=== PATIENT | female | born 1950 | race Caucasian/White ===

== ENCOUNTER 2018-06-21 05:33 | Observation (INO) ==
[2018-06-21 06:00] LABS: Basophils # 0.1 K/mm3 (0-0.2); Basophils % 0.6 % (0.1-2.0); Eosinophils # 0.7 K/mm3 (0.0-0.4); Eosinophils % 7.6 % (0.1-12.0); Hematocrit 43.4 % (37.0-47.0); Hemoglobin 13.8 g/dL (12.2-16.2); Lymphocytes # 3.1 K/mm3 (0.7-4.5); Mean Corpuscular HGB Conc 31.9 g/dL (31.8-35.4); Mean Corpuscular Hemoglobin 30.2 pg (27.0-31.2); Mean Corpuscular Volume 94.8 fl (81-99); Mean Platelet Volume 7.8 fl (7.4-10.4); Monocytes # 0.7 K/mm3 (0.1-1.0); Monocytes % 8.7 % (1.7-9.3); Neutrophils # 3.9 K/mm3 (1.8-7.8); Neutrophils % 46.1 % (37.0-80.0); Platelet Count 308 K/mm3 (142-424); Red Blood Count 4.58 M/mm3 (4.20-5.40); Red Cell Distribution Width 13.8 % (11.5-17.5); White Blood Count 8.5 K/mm3 (4.8-10.8)
--- NOTE | 2018-06-21 06:03 | Emergency Department Note ---
ED Disposition Clinical Impression: Tobacco use Community acquired pneumonia Qualifiers: Laterality: unspecified laterality Qualified Code(s): J18.9 - Pneumonia, unspec ified organism HTN (hypertension) Qualifiers: Hypertension type: essential hypertension Qualified Code(s): I10 - Essential (primary) hypertension Disposition: Admitted as Observation Condition on Discharge: Good Referrals: Crystal Bernal MD [Primary Care Provider] - - Critical Care Critical Care Time: No Attestation: On 06/21/18, the high probability of a clinically significant, sudden or life threatening deterioration of the following system(s) required my full and direct attention, intervention and personal management. The time I documented below is in addition to time spent performing reported procedures but includes the following listed in this critical care notation. Medical Decision Making - Medical Records Medical records reviewed: Yes: I reviewed the patient's medical records. - [place] Inquiry Pt receiving controlled substance: No Vital Signs: 06/21/18 05:33 06/21/18 05:42 06/21/18 06:10 Temperature 98.7 F Temperature Source Oral Pulse Rate [Right Radial] 126 H Respiratory Rate 30 H Blood Pressure [Right Arm] 204/132 192/120 Blood Pressure Mean [Right Arm] 156 144 Blood Pressure Source [Right Arm] Manual Cuff/ Auscultation Blood Pressure Position [Right Arm] Sitting 02 Sat by Pulse Oximetry 89 L 96 Oxygen Delivery Method Room Air Oxygen Flow Rate (LPM) 2 - Lab Data Lab results reviewed: Yes: I reviewed the patient's lab results. Lab Results 06/21/18 05:35: WBC 8.5, RBC 4.58, Hgb 13.8, Hct 43.4, MCV 94.8, MCH 30.2, MCHC 31.9, RDW 13.8, Plt Count 308, MPV 7.8, Neut % (Auto) 46.1, Lymph % (Auto) 37.0, [place] % (Auto) 8.7, Eos % (Auto) 7.6, Baso % (Auto) 0.6, Neut # (Auto) 3.9, Lymph # (Auto) 3.1, [place] # (Auto) 0.7, Eos # (Auto) 0.7 H, Baso # (Auto) 0.1 06/21/18 05:35: Sodium 144, Potassium 3.8, Chloride 106, Carbon Dioxide 26, Ani on Gap 15.8 H, BUN 15, Creatinine 1.28 H, Estimated Creat Clear 50, Estimated GFR 42 L, Est GFR ( Amer) 50 L, Glucose 155 H, Calcium 8.2 L, Total Bilirubin 0.2, AST 21, ALT 29, Alkaline Phosphatase 106, Total Creatine Kinase 77, CK-MB (CK-2) 1.1, CK-MB (CK-2) Rel Index 1.4, Troponin I < 0.02, Total Protein 8.4 H, Albumin 4.0, Globulin 4.4 H, Albumin/Globulin Ratio 0.9 L Result diagrams: 06/21/18 05:35 06/21/18 05:35 Orders (Tests/Meds): ED MEDICATIONS Generic Name Dose Route Start Last Admin Trade Name Freq PRN Reason Stop Dose Admin Ceftriaxone Sodium 1 gm/ 50 mls @ 100 mls/hr 06/21/18 06:30 06/21/18 06:30 Sodium Chloride IV 07/05/18 06:29 100 mls/hr Q24H DARLENE Administration Protocol Azithromycin 500 mg/ Sodium 250 mls @ 250 mls/hr 06/21/18 06:30 Chloride IV 07/05/18 06:29 Q24H DARLENE Protocol Sodium Chloride 3 ml 06/21/18 05:41 Sodium Chloride 3% 15ml Neb 07/21/18 05:40 ONCE PRN INDUCE SPUTUM COLLECTION Discontinued Medications Generic Name Dose Route Start Last Admin Trade Name Freizzy PRN Reason Stop Dose Admin Albuterol/Ipratropium 3 ml 06/21/18 05:39 06/21/18 05:41 Duoneb 3ml Neb 06/21/18 05:40 3 ml ONCE ONE Administration Clonidine HCl 0.1 mg 06/21/18 06:23 06/21/18 06:30 Clonidine 0.1mg Tablet PO 06/21/18 06:24 0.1 mg ONCE ONE Administration Methylprednisolone Sodium Succinate 125 mg 06/21/18 05:39 06/21/18 05:41 Solu-Medrol 125mg/2ml Vial IV 06/21/18 05:40 125 mg ONCE ONE Administration ORDERS Category Date Time Status BNP [B-Type Natriuretic Peptide] Stat Lab 06/21/18 06:02 Ordered Lactic Acid Stat Lab 06/21/18 05:35 Received Blood Culture Stat Micro 06/21/18 05:35 Ordered Sputum Culture & Gram Stain Stat Micro 06/21/18 05:45 Ordered - Radiology Data #1 Image(s): Chest Image Reviewed: Yes I reviewed the patient's radiology image Preliminary Findings: Abnormal (inflitrates ) - ECG Data Tracing #1 Arrhythmias present: sinus tach Ischemic changes: non-specific ST-T wave changes - Physician Consults Physician Consulted: luke Reason -: Admission Resp/SOB HPI - General Chief Complaint: Shortness of Breath/Dyspnea Stated Complaint: shortness of breath Time Seen by Provider: 06/21/18 05:45 Mode of Arrival: Family Vehicle Source of Information: Patient, Medical Record Limitations: No Limitations Description of Symptoms (Recalled from ER Triage Doc. by RN): shortness of breat h that began 1 week ago. pt c/o productive cough and denies fever. - History of Present Illness progressive sob with prod cough over the last week with hx of tob use- no chest pain but has not used bp meds for awhile MD Complaint: shortness of breath, cough Onset (ago): day(s) Severity: moderate Known history of: COPD Associated symptoms: denies other symptoms Treatment prior to arrival: none - Related Data Home oxygen amount: none Home Medications Medication Instructions Recorded Confirmed No Known Home Medications 06/21/18 06/21/18 Allergies Allergy/AdvReac Type Severity Reaction Status Date / Time No Known Allergies Allergy Verified 06/21/18 05:38 [facility] History I have reviewed the patient's past medical history: Yes Medical History: Reports:: Cancer Denies:: Diabetes Mellitus Type 1, Diabetes Mellitus Type 2, MRSA Amputation: No Fractures: Yes (hx ankle fracture with surgery) - Social History Smoking Status: Current every day smoker Alcohol Intake: never - Psychiatric History Expresses thoughts of harming self/others: None Suicide Plan Description: No Plan ROS Obtained: Yes All systems reviewed & no additional complaints - Constitutional Constitutional: Denies fever(s) - Eyes Eyes: Denies change in vision - ENT Ears, Nose, Mouth, and Throat: Denies sore throat - Cardiovascular Cardiovascular: Denies chest pain at rest - Respiratory Respiratory: Yes cough, Yes dyspnea, No coughing up blood - Gastrointestinal Gastrointestingal: Denies: abdominal pain - Genitourinary Male Genitourinary: Reports hematuria Female Genitourinary: Denies hematuria - Musculoskeletal Musculoskeletal: Denies joint pain, Denies joint swelling - Integumentary/Breasts Skin/Breast: Denies rash - Neurologic Neurologic: Denies headache(s), Denies seizure-like activity Physical Exam - General General appearance: alert, in no apparent distress - Head Head exam: normocephalic - Eye Eye exam: Present: PERRL, EOMI - ENT ENT exam: Present: mucous membranes dry - Neck Neck exam: Present: trachea midline - Respiratory Respiratory exam: Present: wheezes, other (dec bs bilat ). Absent: respiratory distress - Cardiovascular Cardiovascular exam: Present: regular rate, systolic murmur, +S4 - Abdominal Exam Abdominal exam: Present: soft - Extremities Exam Extremities exam: Present: pedal edema. Absent: calf tenderness - Neurological Exam Neurological exam: Present: alert, oriented X3, CN II-XII intact - Psychiatric Psychiatric exam: Present: normal affect - Skin Skin exam: Absent: rash
[2018-06-21 06:23] LABS: Alanine Aminotransferase 29 U/L (12-78); Albumin/Globulin Ratio 0.9 (1.1-1.8); Alkaline Phosphatase 106 U/L (46-116); Anion Gap 15.8 mEq/L (5-15); Aspartate Amino Transferase 21 U/L (15-37); Bilirubin,Total 0.2 mg/dL (0.2-1.0); Blood Urea Nitrogen 15 mg/dL (7-18); Calcium 8.2 mg/dL (8.5-10.1); Carbon Dioxide 26 mmol/L (21.0-32.0); Chloride 106 mmol/L (98-107); Creatine Kinase 77 U/L (26-192); Globulin 4.4 gm/dl (1.3-3.2); Glucose 155 mg/dL (74-106); Potassium 3.8 mmoL/L (3.5-5.1); Sodium 144 mmol/L (136-145); Total Protein,Serum 8.4 gm/dL (6.4-8.2)
--- NOTE | 2018-06-21 07:48 | Pharmacy Consult Notes ---
[facility] Pharmacy VTE Monitoring - Patient Demographics Admission date: 06/21/18 Report Date: 06/21/18 Time: 07:48 Allergies/Adverse Reactions: Patient Allergies No Known Allergies Allergy (Verified 06/21/18 05:38) Height: 1.57 m Weight: 72.575 kg Patient Problems: Current Active Problems Community acquired pneumonia (Acute) HTN (hypertension) (Acute) Tobacco use (Acute) - VTE Risk Labs: VTE Related Lab Results Hgb 13.8 g/dL (12.2-16.2) 06/21/18 05:35 Hct 43.4 % (37.0-47.0) 06/21/18 05:35 Plt Count 308 K/mm3 (142-424) 06/21/18 05:35 BUN 15 mg/dL (7-18) 06/21/18 05:35 Creatinine 1.28 mg/dL (0.55-1.02) H 06/21/18 05:35 Estimated Creat Clear 50 mL/min (0-300) 06/21/18 05:35 - Prophylaxis VTE Prophylaxis Ordered?: Yes Types of VTE Prophylaxis: TEDS Knee High Location of Applied Device: Bilateral Lower Extremeties - VTE Diagnosis Confirmed Treatment or plan recommended: Continue Current Treatment
--- NOTE | 2018-06-21 08:21 | History & Physical Report ---
*Admission Date: 06/21/18 <Pamella Lake 06/21/18 08:24> *Chief complaint: SOA <Ward Lake06/21/18 08:24> *History of present illness: Ms. Solares is a 67-year-old female patient of Dr. Brooke Dukes of [place]. She has a history of hypertension, hyperlipidemia, iron deficiency anemia, and left breast cancer. She is a smoker. She states approximately 1-1/2 weeks ago she began feeling poorly. She thought she had a cold and then thought she might have the flu. Approximately 3 AM last night she was unable to breathe and drove herself to the emergency room. She was found to have pneumonia and was admitted. <Pamella Lake 06/21/18 08:24> [facility] History Medical History: Reports:: Cancer (breast), Hyperlipidemia, Hypertension Denies:: Diabetes Mellitus Type 1, Diabetes Mellitus Type 2, MRSA <Ward Lake06/21/18 08:24> Other Medical History: Reports: Anemia <Pamella Lake 06/21/18 08:24> Laterality Cases: Left: Lumpectomy <Pamella Lake 06/21/18 08:24> Amputation: No <Pamella Lake 06/21/18 08:24> Fractures: Yes (hx ankle fracture with surgery) <Pamella Lake 06/21/18 08:24> - *Social History Smoking Status: Current every day smoker <Pamella Lake 06/21/18 08:24> Alcohol Intake: never <Pamella Lake 06/21/18 08:24> - Psychiatric History Expresses thoughts of harming self/others: None <Pamella Lake 06/21/18 08:24> Suicide Plan Description: No Plan <Pamella Lake 06/21/18 08:24> *Family Hx:: Cancer (breast), Hypertension <Pamella Lake 06/21/18 08:24> Review of Systems - Constitutional Reports chills, Reports fatigue, Reports weakness, Denies headache(s) <Pamella Lake 06/21/18 08:24> - Eyes Denies blurry vision, Denies double vision <Pamella Lake 06/21/18 08:24> - ENT Reports nasal congestion, Denies sore throat <Pamella Lake 06/21/18 08:24> - *Cardiovascular Denies chest pain, Denies irregular heart rhythm <Pamella Lake 06/21/18 08:24> - *Respiratory Reports chest congestion, Reports cough, Reports shortness of breath <Pamella Lake 06/21/18 08:24> - *Gastrointestinal Denies abdominal pain, Denies loose stools, Denies nausea, Denies vomiting <Pamella Lake 06/21/18 08:24> - *Genitourinary Denies difficulty urinating, Denies painful urination [facility] 06/21/18 08:24> - *Musculoskeletal Denies joint pain <Pamella Lake 06/21/18 08:24> - *Neurologic Denies headache(s), Denies seizure-like activity, Denies dizziness, Denies weakness <Pamella Lake 06/21/18 08:24> Meds Home Medications Medication Instructions Recorded Confirmed Type Atorvastatin Calcium [Atorvastatin 20 mg PO DAILY 06/21/18 06/21/18 History 20mg Tab] Benazepril/Hydrochlorothiazide 1 each PO DAILY 06/21/18 06/21/18 History [Benazepril-Hctz 20-12.5 mg Tab] Ferrous Sulfate [Iron] 325 mg PO DAILY 06/21/18 06/21/18 History Naproxen 500 mg PO BID 06/21/18 06/21/18 History <Roger Guthrie - 06/21/18 09:46> Allergies Allergy/AdvReac Type Severity Reaction Status Date / Time No Known Allergies Allergy Verified 06/21/18 05:38 <Roger Guthrie - 06/21/18 09:46> Exam Vital signs and Labs for Last 24 Hours: Temp Pulse Resp BP Pulse Ox 98.1 F 109 H 20 150/97 92 L 06/21/18 08:03 06/21/18 08:03 06/21/18 08:03 06/21/18 08:03 06/21/18 08:03 Laboratory Results - last 24 hr 06/21/18 05:35: WBC 8.5, RBC 4.58, Hgb 13.8, Hct 43.4, MCV 94.8, MCH 30.2, MCHC 31.9, RDW 13.8, Plt Count 308, MPV 7.8, Neut % (Auto) 46.1, Lymph % (Auto) 37.0, [place] % (Auto) 8.7, Eos % (Auto) 7.6, Baso % (Auto) 0.6, Neut # (Auto) 3.9, Lymph # (Auto) 3.1, [place] # (Auto) 0.7, Eos # (Auto) 0.7 H, Baso # (Auto) 0.1 06/21/18 05:35: Sodium 144, Potassium 3.8, Chloride 106, Carbon Dioxide 26, Anion Gap 15.8 H, BUN 15, Creatinine 1.28 H, Estimated Creat Clear 50, Estimated GFR 42 L, Est GFR ( Amer) 50 L, Glucose 155 H, Calcium 8.2 L, Total Bilirubin 0.2, AST 21, ALT 29, Alkaline Phosphatase 106, Total Creatine Kinase 77, CK-MB (CK-2) 1.1, CK-MB (CK-2) Rel Index 1.4, Troponin I < 0.02, Total Protein 8.4 H, Albumin 4.0, Globulin 4.4 H, Albumin/Globulin Ratio 0.9 L 06/21/18 05:35: Lactate 3.2 H 06/21/18 05:35: B-Natriuretic Peptide 334 H <Roger Guthrie - 06/21/18 09:46> Temp Pulse Resp BP Pulse Ox 98.1 F 109 H 20 150/97 92 L 06/21/18 08:03 06/21/18 08:03 06/21/18 08:03 06/21/18 08:03 06/21/18 08:03 Laboratory Results - last 24 hr 06/21/18 05:35: WBC 8.5, RBC 4.58, Hgb 13.8, Hct 43.4, MCV 94.8, MCH 30.2, MCHC 31.9, RDW 13.8, Plt Count 308, MPV 7.8, Neut % (Auto) 46.1, Lymph % (Auto) 37.0, [place] % (Auto) 8.7, Eos % (Auto) 7.6, Baso % (Auto) 0.6, Neut # (Auto) 3.9, Lymph # (Auto) 3.1, [place] # (Auto) 0.7, Eos # (Auto) 0.7 H, Baso # (Auto) 0.1 06/21/18 05:35: Sodium 144, Potassium 3.8, Chloride 106, Carbon Dioxide 26, Anion Gap 15.8 H, BUN 15, Creatinine 1.28 H, Estimated Creat Clear 50, Estimated GFR 42 L, Est GFR ( Amer) 50 L, Glucose 155 H, Calcium 8.2 L, Total Bilirubin 0.2, AST 21, ALT 29, Alkaline Phosphatase 106, Total Creatine Kinase 77, CK-MB (CK-2) 1.1, CK-MB (CK-2) Rel Index 1.4, Troponin I < 0.02, Total Protein 8.4 H, Albumin 4.0, Globulin 4.4 H, Albumin/Globulin Ratio 0.9 L 06/21/18 05:35: Lactate 3.2 H 06/21/18 05:35: B-Natriuretic Peptide 334 H <Pamella Lake 06/21/18 08:24> I & O for Last 24 hours: Intake & Output 06/18/18 06/19/18 06/20/18 06/21/18 11:59 11:59 11:59 11:59 Weight 175 lb 2 oz <Roger Guthrie - 06/21/18 09:46> Intake & Output 06/18/18 06/19/18 06/20/18 06/21/18 11:59 11:59 11:59 11:59 Weight 175 lb 2 oz <Pamella Lake 06/21/18 08:24> Microbiology Reports for the Last 24 Hours: Microbiology 06/21/18 05:45 Sputum - Expectorated Sputum Gram Stain - Final <Roger Guthrie 06/21/18 09:46> Microbiology 06/21/18 05:45 Sputum - Expectorated Sputum Gram Stain - Final <Pamella Lake 06/21/18 08:24> - Constitutional no acute distress <Pamella Lake 06/21/18 08:24> - *Routine HEENT Exam Head: Present: normocephalic, atraumatic <Pamella Lake 06/21/18 08:24> Eye: Present: EOMI, PERRL <Pamella Lake 06/21/18 08:24> ENT: Present: mucous membranes dry <Pamella Lake 06/21/18 08:24> - *Routine Neck Exam Present: supple, full ROM <Pamella Lake 06/21/18 08:24> - *Routine Respiratory Exam Present: rales (bibasilar). Absent: wheezes <Pamella Lake 06/21/18 08:24> - *Routine Cardiovascular Exam Present: RRR <Ward Lakea 06/21/18 08:24> - *Routine Abdominal Exam Present: soft, normoactive bowel sounds. Absent: tenderness <Pamella Lake 06/21/18 08:24> - *Routine Extremities Exam Absent: edema <Ward Lakea 06/21/18 08:24> - *Routine Skin Exam Present: intact [facility]24> - *Routine Neurological Exam Present: alert, oriented X3, CN II-XII intact <Ward Lakea 06/21/18 08:24> H&P: Result - Impressions CXR - Possible infiltrates or atelectasis in the left mid to upper lung zone and right lower lobe <Pamella Lake 06/21/18 08:24> Assessment and Plan (1) Community acquired pneumonia Current visit: Yes Status: Acute Qualifiers: Laterality: unspecified laterality Qualified Code(s): J18.9 - Pneumonia, unspecified organism Category: Medical Code(s): J18.9 - Pneumonia, unspecified organism (2) HTN (hypertension) Current visit: Yes Status: Chronic Qualifiers: Hypertension type: essential hypertension Qualified Code(s): I10 - Essential (primary) hypertension Category: Medical Code(s): I10 - Essential (primary) hypertension (3) Tobacco use Current visit: Yes Status: Chronic Category: Social Hx Code(s): Z72.0 - Tobacco use <Pamella Lake 06/21/18 08:18> (1) Community acquired pneumonia Current visit: Yes Status: Acute Qualifiers: Laterality: unspecified laterality Qualified Code(s): J18.9 - Pneumonia, unspecified organism Category: Medical Code(s): J18.9 - Pneumonia, unspecified organism (2) HTN (hypertension) Current visit: Yes Status: Chronic Qualifiers: Hypertension type: essential hypertension Qualified Code(s): I10 - Essential (primary) hypertension Category: Medical Code(s): I10 - Essential (primary) hypertension (3) Tobacco use Current visit: Yes Status: Chronic Category: Social Hx Code(s): Z72.0 - Tobacco use <JerriRoger villa Jm - 06/21/18 09:46> - Assessment and plan all Dx Assessment and Plan for all problems:: Patient seen and examined. Further to above history is that she admits to nonc ompliance with her home medications. SHe does not even remember what medications she is supposed to be taking for her BP and HLP. SHe is feeling better since arrival to the floor. O2 sats are stable. BP is improved. She still has a productive cough. No chest pain. When asked about her smoking status, she states she quit smoking this morning. Agrees to using a Nicotine patch. Will also resume her home medications once these are confirmed by pharmacy. <Roger Guthrie - 06/21/18 09:46> Patient has been started on Zithromax, Rocephin, nebs, steroids, oxygen, and IV fluids. Will continue current treatment and await sputum culture results. <Pamella Lake - 06/21/18 08:24>
[2018-06-22 06:43] LABS: Basophils % 0.3 % (0.1-2.0); Eosinophils % 0.1 % (0.1-12.0); Hematocrit 38.4 % (37.0-47.0); Hemoglobin 11.9 g/dL (12.2-16.2); Lymphocytes # 1.4 K/mm3 (0.7-4.5); Lymphocytes % 18.7 K/mm3 (10-50); Mean Corpuscular HGB Conc 31.1 g/dL (31.8-35.4); Mean Corpuscular Hemoglobin 29.5 pg (27.0-31.2); Mean Corpuscular Volume 95.1 fl (81-99); Mean Platelet Volume 7.8 fl (7.4-10.4); Monocytes # 0.4 K/mm3 (0.1-1.0); Monocytes % 4.8 % (1.7-9.3); Neutrophils # 5.6 K/mm3 (1.8-7.8); Neutrophils % 76.1 % (37.0-80.0); Platelet Count 287 K/mm3 (142-424); Red Blood Count 4.04 M/mm3 (4.20-5.40); Red Cell Distribution Width 13.9 % (11.5-17.5); White Blood Count 7.3 K/mm3 (4.8-10.8)
[2018-06-22 07:04] LABS: Anion Gap 12.4 mEq/L (5-15); Calcium 8.7 mg/dL (8.5-10.1); Chol/HDL Ratio 4.1 (1-3.5); Potassium 4.4 mmoL/L (3.5-5.1)
--- NOTE | 2018-06-22 08:44 | Progress Note ---
<Maryann Stephens - Last Filed: 06/22/18 08:40> Internal Medicine - PN: Subj *Date: 06/22/18 *Time: 08:41 Interval history: Pt is sitting up in bed watching TV, still with some SOB at rest which pt reports is improved from yesterday. She notes that she is eating well and amb ulating to BR without difficulty. She denies any chest pain, describes her cough as more productive. Exam Vital signs and Labs for Last 24 Hours: Temp Pulse Resp BP Pulse Ox 97.9 F 103 H 20 177/89 85 L 06/22/18 04:00 06/22/18 06:25 06/22/18 04:00 06/22/18 04:00 06/22/18 06:25 Laboratory Results - last 24 hr 06/21/18 09:50: Troponin I 0.04 06/21/18 09:50: Lactate 2.9 H 06/21/18 12:28: Troponin I 0.05 06/21/18 12:28: Lactate 1.8 06/22/18 06:15: WBC 7.3, RBC 4.04 L, Hgb 11.9 L, Hct 38.4, MCV 95.1, MCH 29.5, MCHC 31.1 L, RDW 13.9, Plt Count 287, MPV 7.8, Neut % (Auto) 76.1, Lymph % (Auto) 18.7, [place] % (Auto) 4.8, Eos % (Auto) 0.1, Baso % (Auto) 0.3, Neut # (Auto) 5.6, Lymph # (Auto) 1.4, [place] # (Auto) 0.4, Eos # (Auto) 0.0, Baso # (Auto) 0.0 06/22/18 06:15: Sodium 144, Potassium 4.4, Chloride 109 H, Carbon Dioxide 27, Anion Gap 12.4, BUN 15, Creatinine 1.14 H, Estimated Creat Clear 62, Estimated GFR 48 L, Est GFR ( Amer) 58 L, Glucose 136 H, Calcium 8.7, Magnesium 1.6, Triglycerides 84, Cholesterol 203 H, LDL Cholesterol 136 H, VLDL Cholesterol 17, HDL Cholesterol 50, Cholesterol/HDL Ratio 4.1 H I & O for Last 24 hours: Intake & Output 09/01/0106/20/18 06/21/18 06/22/18 11:59 11:59 11:59 11:59 Intake Total 3603 / 3603 Balance 3603 / 3603 Weight 175 lb 2 oz 177 lb 4 oz Microbiology Reports for the Last 24 Hours: Microbiology 06/21/18 05:45 Sputum - Expectorated Sputum Gram Stain - Final - Constitutional no acute distress - *Routine Respiratory Exam Comments: mildly tachypneic at rest, good air movement with expiratory wheezes throughout, bibasilar rales more prominent on left - *Routine Cardiovascular Exam Present: RRR - *Routine Abdominal Exam Present: soft, normoactive bowel sounds. Absent: tenderness, distended, organomegaly, mass - *Routine Extremities Exam Present: full ROM, pulses intact. Absent: edema, calf tenderness - *Routine Neurological Exam Present: alert, oriented X3, normal speech. Absent: facial asymmetry Assessment and Plan (1) Community acquired pneumonia Current visit: Yes Status: Acute Qualifiers: Laterality: unspecified laterality Qualified Code(s): J18.9 - Pneumonia, unspecified organism Category: Medical Code(s): J18.9 - Pneumonia, unspecified organism (2) HTN (hypertension) Current visit: Yes Status: Chronic Qualifiers: Hypertension type: essential hypertension Qualified Code(s): I10 - Essential (primary) hypertension Category: Medical Code(s): I10 - Essential (primary) hypertension (3) Tobacco use Current visit: Yes Status: Chronic Category: Social Hx Code(s): Z72.0 - Tobacco use - Assessment and plan all Dx Assessment and Plan for all problems:: Pt somewhat improved. Will continue current care. Further per Dr. Guthrie. <Roger Guthrie - Last Filed: 06/22/18 13:44> Exam Vital signs and Labs for Last 24 Hours: Temp Pulse Resp BP Pulse Ox 98.3 F 108 H 20 166/93 97 06/22/18 12:00 06/22/18 12:00 06/22/18 12:00 06/22/18 12:00 06/22/18 12:00 Laboratory Results - last 24 hr 06/22/18 06:15: WBC 7.3, RBC 4.04 L, Hgb 11.9 L, Hct 38.4, MCV 95.1, MCH 29.5, MCHC 31.1 L, RDW 13.9, Plt Count 287, MPV 7.8, Neut % (Auto) 76.1, Lymph % (Auto) 18.7, [place] % (Auto) 4.8, Eos % (Auto) 0.1, Baso % (Auto) 0.3, Neut # (Auto) 5.6, Lymph # (Auto) 1.4, [place] # (Auto) 0.4, Eos # (Auto) 0.0, Baso # (Auto) 0.0 06/22/18 06:15: Sodium 144, Potassium 4.4, Chloride 109 H, Carbon Dioxide 27, Anion Gap 12.4, BUN 15, Creatinine 1.14 H, Estimated Creat Clear 62, Estimated GFR 48 L, Est GFR ( Amer) 58 L, Glucose 136 H, Calcium 8.7, Magnesium 1.6, Triglycerides 84, Cholesterol 203 H, LDL Cholesterol 136 H, VLDL Cholesterol 17, HDL Cholesterol 50, Cholesterol/HDL Ratio 4.1 H I & O for Last 24 hours: Intake & Output 06/20/18 06/21/18 06/22/18 06/23/18 11:59 11:59 11:59 11:59 Intake Total 3963 / 3963 Balance 3963 / 3963 Weight 175 lb 2 oz 177 lb 4 oz Microbiology Reports for the Last 24 Hours: Microbiology 06/21/18 05:45 Sputum - Expectorated Sputum Gram Stain - Final 06/21/18 05:45 Sputum - Expectorated Sputum Sputum Culture - Preliminary Assessment and Plan (1) Community acquired pneumonia Current visit: Yes Status: Acute Qualifiers: Laterality: unspecified laterality Qualified Code(s): J18.9 - Pneumonia, unspecified organism Category: Medical Code(s): J18.9 - Pneumonia, unspecified organism (2) HTN (hypertension) Current visit: Yes Status: Chronic Qualifiers: Hypertension type: essential hypertension Qualified Code(s): I10 - Essential (primary) hypertension Category: Medical Code(s): I10 - Essential (primary) hypertension (3) Tobacco use Current visit: Yes Status: Chronic Category: Social Hx Code(s): Z72.0 - Tobacco use - Assessment and plan all Dx Assessment and Plan for all problems:: When I entered room this AM she had just returned from and was fairly dyspneic. Cough is still productive. Has been able to wean O2 some. On exam, she has less wheezing. Will continue current treatment plan and repeat CXR today. Encouraged increased activity in room today.
--- NOTE | 2018-06-23 08:31 | Progress Note ---
<Pamella Lake - Last Filed: 06/23/18 08:28> Internal Medicine - PN: Subj *Date: 06/23/18 *Time: 08:28 Interval history: Patient states she was doing much better yesterday and was up walking around her room. She states she went to take a shower and did have her oxygen on the entire time, but after being in the shower, became short of breath. She states the shortness of breath has continued and she has been wheezing. She has had numerous breathing treatments with some relief. Exam Vital signs and Labs for Last 24 Hours: Temp Pulse Resp BP Pulse Ox 98.1 F 107 H 20 155/82 95 06/23/18 08:00 06/23/18 08:00 06/23/18 08:00 06/23/18 08:00 06/23/18 08:00 I & O for Last 24 hours: Intake & Output 06/20/18 06/21/18 06/22/18 06/23/18 11:59 11:59 11:59 11:59 Intake Total 3963 / 3963 3244 / 3244 Balance 3963 / 3963 3244 / 3244 Weight 175 lb 2 oz 177 lb 4 oz 178 lb 1 oz Microbiology Reports for the Last 24 Hours: Microbiology 06/21/18 05:35 Blood Blood Culture - Preliminary NO GROWTH AFTER 48 HOURS 06/21/18 05:35 Blood Blood Culture - Preliminary NO GROWTH AFTER 48 HOURS 06/21/18 05:45 Sputum - Expectorated Sputum Gram Stain - Final 06/21/18 05:45 Sputum - Expectorated Sputum Sputum Culture - Preliminary - Constitutional no acute distress - *Routine Respiratory Exam Present: rales (bibasilar), wheezes - *Routine Cardiovascular Exam Present: RRR - *Routine Abdominal Exam Present: soft, normoactive bowel sounds. Absent: tenderness - *Routine Extremities Exam Absent: edema Assessment and Plan (1) Community acquired pneumonia Current visit: Yes Status: Acute Qualifiers: Laterality: unspecified laterality Qualified Code(s): J18.9 - Pneumonia, unspecified organism Category: Medical Code(s): J18.9 - Pneumonia, unspecified organism (2) HTN (hypertension) Current visit: Yes Status: Chronic Qualifiers: Hypertension type: essential hypertension Qualified Code(s): I10 - Essential (primary) hypertension Category: Medical Code(s): I10 - Essential (primary) hypertension (3) Tobacco use Current visit: Yes Status: Chronic Category: Social Hx Code(s): Z72.0 - Tobacco use - Assessment and plan all Dx Assessment and Plan for all problems:: We will stop patient's IV fluids and give a dose of Lasix. We will get a BNP. Will continue antibiotics for her pneumonia. <Jerri,Roger Oneal - Last Filed: 06/23/18 08:55> Exam Vital signs and Labs for Last 24 Hours: Temp Pulse Resp BP Pulse Ox 98.1 F 107 H 20 155/82 95 06/23/18 08:00 06/23/18 08:00 06/23/18 08:00 06/23/18 08:00 06/23/18 08:00 I & O for Last 24 hours: Intake & Output 06/20/18 06/21/18 06/22/18 06/23/18 11:59 11:59 11:59 11:59 Intake Total 3963 / 3963 3244 / 3244 Balance 3963 / 3963 3244 / 3244 Weight 175 lb 2 oz 177 lb 4 oz 178 lb 1 oz Microbiology Reports for the Last 24 Hours: Microbiology 06/21/18 05:45 Sputum - Expectorated Sputum Gram Stain - Final 06/21/18 05:45 Sputum - Expectorated Sputum Sputum Culture - Final Normal Respiratory Leanne 06/21/18 05:35 Blood Blood Culture - Preliminary NO GROWTH AFTER 48 HOURS 06/21/18 05:35 Blood Blood Culture - Preliminary NO GROWTH AFTER 48 HOURS Assessment and Plan (1) Community acquired pneumonia Current visit: Yes Status: Acute Qualifiers: Laterality: unspecified laterality Qualified Code(s): J18.9 - Pneumonia, unspecified organism Category: Medical Code(s): J18.9 - Pneumonia, unspecified organism (2) HTN (hypertension) Current visit: Yes Status: Chronic Qualifiers: Hypertension type: essential hypertension Qualified Code(s): I10 - Essential (primary) hypertension Category: Medical Code(s): I10 - Essential (primary) hypertension (3) Tobacco use Current visit: Yes Status: Chronic Category: Social Hx Code(s): Z72.0 - Tobacco use - Assessment and plan all Dx Assessment and Plan for all problems:: Patient seen and examined. Her CXR yesterday showed improvement in her pneumonia but clinically she is still quite dyspneic with exertion. Still with productive cough with white sputum. Will d/c IVF and give dose of Lasix. Check BNP and if significantly elevated, may need CT of chest.
[2018-06-23 08:53] LABS: Basophils % 0.1 % (0.1-2.0); Eosinophils % 0.3 % (0.1-12.0); Hematocrit 38.5 % (37.0-47.0); Lymphocytes # 1.2 K/mm3 (0.7-4.5); Lymphocytes % 9.6 K/mm3 (10-50); Mean Corpuscular HGB Conc 31.2 g/dL (31.8-35.4); Mean Corpuscular Hemoglobin 29.9 pg (27.0-31.2); Mean Corpuscular Volume 95.7 fl (81-99); Mean Platelet Volume 7.5 fl (7.4-10.4); Monocytes # 0.5 K/mm3 (0.1-1.0); Monocytes % 4.1 % (1.7-9.3); Platelet Count 291 K/mm3 (142-424); Red Blood Count 4.02 M/mm3 (4.20-5.40); Red Cell Distribution Width 14.1 % (11.5-17.5); White Blood Count 12.8 K/mm3 (4.8-10.8)
[2018-06-23 09:38] LABS: Lymphocytes % 12 % (10-50); Monocytes % 6 % (2-9); Neutrophils % 82 % (42-76); Total Cells Counted 100
[2018-06-23 09:39] LABS: RBC Morphology Normal
--- NOTE | 2018-06-23 10:54 | Pharmacy Consult Notes ---
- Pharmacy Consult Date: 06/23/18 Time: 10:52 Referring provider: Yadira LAL Reason for Consult:: INVESTIGATE THE TYPE ON PNEUMONIA VACCINE PATIENT RECEIVED AND WHEN Allergies and ADEs:: Allergies Allergy/AdvReac Type Severity Reaction Status Date / Time No Known Allergies Allergy Verified 06/21/18 05:38 Home Medications:: Home Medications Medication Instructions Recorded Confirmed Type Atorvastatin Calcium [Atorvastatin 20 mg PO DAILY 06/21/18 06/21/18 History 20mg Tab] Benazepril/Hydrochlorothiazide 1 each PO DAILY 06/21/18 06/21/18 History [Benazepril-Hctz 20-12.5 mg Tab] Ferrous Sulfate [Iron] 325 mg PO DAILY 06/21/18 06/21/18 History Naproxen 500 mg PO BID 06/21/18 06/21/18 History Height: 1.57 m Weight: 80.768 kg Laboratory Results:: Laboratory Results - last 24 hr 06/23/18 08:44: WBC 12.8 H D, RBC 4.02 L, Hgb 12.0 L, Hct 38.5, MCV 95.7, MCH 29.9, MCHC 31.2 L, RDW 14.1, Plt Count 291, MPV 7.5, Neut % (Auto) 86.0 H, Lymph % (Auto) 9.6 L, [place] % (Auto) 4.1, Eos % (Auto) 0.3, Baso % (Auto) 0.1, Neut # (Auto) 11.0 H, Lymph # (Auto) 1.2, [place] # (Auto) 0.5, Eos # (Auto) 0.0, Baso # (Auto) 0.0, Total Counted 100, Neutrophils % (Manual) 82 H, Lymphocytes % (Manual) 12, Monocytes % (Manual) 6, Platelet Estimate Normal, RBC Morphology Normal 06/23/18 08:44: B-Natriuretic Peptide 488 H Medical History: Reports:: Cancer, Hyperlipidemia, Hypertension Denies:: Diabetes Mellitus Type 1, Diabetes Mellitus Type 2, Internal Pacemaker, MRSA Assessment and Plan (1) Community acquired pneumonia Current visit: Yes Status: Acute Qualifiers: Laterality: unspecified laterality Qualified Code(s): J18.9 - Pneumonia, unspecified organism Category: Medical Code(s): J18.9 - Pneumonia, unspecified organism (2) HTN (hypertension) Current visit: Yes Status: Chronic Qualifiers: Hypertension type: essential hypertension Qualified Code(s): I10 - Essential (primary) hypertension Category: Medical Code(s): I10 - Essential (primary) hypertension (3) Tobacco use Current visit: Yes Status: Chronic Category: Social Hx Code(s): Z72.0 - Tobacco use - Assessment and plan all Dx Assessment and Plan for all problems:: CALLED DR TRENT AT [facility] PER PATIENT HISTORY AND PATIENT RECEIVED A PNEUMOVAX 23 IN 2015. THIS INFORMATION WAS RELAYED TO DR. LAL VIA TELEPHONE CALL ON 06/23/2018.
[2018-06-24 07:28] LABS: Calcium 8.7 mg/dL (8.5-10.1)
--- NOTE | 2018-06-24 08:43 | Progress Note ---
<Pamella Lake - Last Filed: 06/24/18 08:41> Internal Medicine - PN: Subj *Date: 06/24/18 *Time: 08:42 Interval history: Patient states she is feeling some better today. She gets very short of breath with any exertion but is fine when sitting still. She slept better last night and ate most of her breakfast this morning. She denies any pain. Exam Vital signs and Labs for Last 24 Hours: Temp Pulse Resp BP Pulse Ox 98.3 F 97 H 24 153/67 94 L 06/24/18 04:00 06/24/18 07:14 06/24/18 04:00 06/24/18 04:00 06/24/18 07:14 Laboratory Results - last 24 hr 06/23/18 08:44: WBC 12.8 H D, RBC 4.02 L, Hgb 12.0 L, Hct 38.5, MCV 95.7, MCH 29.9, MCHC 31.2 L, RDW 14.1, Plt Count 291, MPV 7.5, Neut % (Auto) 86.0 H, Lymph % (Auto) 9.6 L, [place] % (Auto) 4.1, Eos % (Auto) 0.3, Baso % (Auto) 0.1, Neut # (Auto) 11.0 H, Lymph # (Auto) 1.2, [place] # (Auto) 0.5, Eos # (Auto) 0.0, Baso # (Auto) 0.0, Total Counted 100, Neutrophils % (Manual) 82 H, Lymphocytes % (Manual) 12, Monocytes % (Manual) 6, Platelet Estimate Normal, RBC Morphology Normal 06/23/18 08:44: B-Natriuretic Peptide 488 H 06/23/18 08:44: D-Dimer 181 06/24/18 06:32: Sodium 143, Potassium 4.0, Chloride 107, Carbon Dioxide 28, Anion Gap 12.0, BUN 27 H D, Creatinine 1.00, Estimated Creat Clear 71, Estimated GFR 55 L, Est GFR ( Amer) 67, Glucose 131 H, Calcium 8.7 I & O for Last 24 hours: Intake & Output 06/21/18 06/22/18 06/23/18 06/24/18 11:59 11:59 11:59 11:59 Intake Total 3963 / 3963 3244 / 3244 Output Total 3000 / 3000 Balance 3963 / 3963 3244 / 3244 -3000 / -3000 Weight 175 lb 2 oz 177 lb 4 oz 178 lb 1 oz 178 lb 5 oz Microbiology Reports for the Last 24 Hours: Microbiology 06/21/18 05:45 Sputum - Expectorated Sputum Gram Stain - Final 06/21/18 05:45 Sputum - Expectorated Sputum Sputum Culture - Final Normal Respiratory Leanne 06/21/18 05:35 Blood Blood Culture - Preliminary NO GROWTH AFTER 48 HOURS 06/21/18 05:35 Blood Blood Culture - Preliminary NO GROWTH AFTER 48 HOURS - Constitutional no acute distress - *Routine Respiratory Exam Present: rales (bibasilar), wheezes - *Routine Cardiovascular Exam Present: RRR - *Routine Abdominal Exam Present: soft, normoactive bowel sounds. Absent: tenderness - *Routine Extremities Exam Absent: edema Assessment and Plan (1) Community acquired pneumonia Current visit: Yes Status: Acute Qualifiers: Laterality: unspecified laterality Qualified Code(s): J18.9 - Pneumonia, unspecified organism Category: Medical Code(s): J18.9 - Pneumonia, unspecified organism (2) HTN (hypertension) Current visit: Yes Status: Chronic Qualifiers: Hypertension type: essential hypertension Qualified Code(s): I10 - Essential (primary) hypertension Category: Medical Code(s): I10 - Essential (primary) hypertension (3) Tobacco use Current visit: Yes Status: Chronic Category: Social Hx Code(s): Z72.0 - Tobacco use - Assessment and plan all Dx Assessment and Plan for all problems:: Patient can possibly be discharged home today on abx. She will likely need home oxygen. <Roger Guthrie - Last Filed: 06/24/18 08:52> Exam Vital signs and Labs for Last 24 Hours: Temp Pulse Resp BP Pulse Ox 98.3 F 97 H 24 153/67 94 L 06/24/18 04:00 06/24/18 07:14 06/24/18 04:00 06/24/18 04:00 06/24/18 07:14 Laboratory Results - last 24 hr 06/23/18 08:44: WBC 12.8 H D, RBC 4.02 L, Hgb 12.0 L, Hct 38.5, MCV 95.7, MCH 29.9, MCHC 31.2 L, RDW 14.1, Plt Count 291, MPV 7.5, Neut % (Auto) 86.0 H, Lymph % (Auto) 9.6 L, [place] % (Auto) 4.1, Eos % (Auto) 0.3, Baso % (Auto) 0.1, Neut # (Auto) 11.0 H, Lymph # (Auto) 1.2, [place] # (Auto) 0.5, Eos # (Auto) 0.0, Baso # (Auto) 0.0, Total Counted 100, Neutrophils % (Manual) 82 H, Lymphocytes % (Manual) 12, Monocytes % (Manual) 6, Platelet Estimate Normal, RBC Morphology Normal 06/23/18 08:44: B-Natriuretic Peptide 488 H 06/23/18 08:44: D-Dimer 181 06/24/18 06:32: Sodium 143, Potassium 4.0, Chloride 107, Carbon Dioxide 28, Anion Gap 12.0, BUN 27 H D, Creatinine 1.00, Estimated Creat Clear 71, Estimated GFR 55 L, Est GFR ( Amer) 67, Glucose 131 H, Calcium 8.7 I & O for Last 24 hours: Intake & Output 06/21/18 06/22/18 06/23/18 06/24/18 11:59 11:59 11:59 11:59 Intake Total 3963 / 3963 3244 / 3244 Output Total 3000 / 3000 Balance 3963 / 3963 3244 / 3244 -3000 / -3000 Weight 175 lb 2 oz 177 lb 4 oz 178 lb 1 oz 178 lb 5 oz Microbiology Reports for the Last 24 Hours: Microbiology 06/21/18 05:45 Sputum - Expectorated Sputum Gram Stain - Final 06/21/18 05:45 Sputum - Expectorated Sputum Sputum Culture - Final Normal Respiratory Leanne 06/21/18 05:35 Blood Blood Culture - Preliminary NO GROWTH AFTER 48 HOURS 06/21/18 05:35 Blood Blood Culture - Preliminary NO GROWTH AFTER 48 HOURS Assessment and Plan (1) Community acquired pneumonia Current visit: Yes Status: Acute Qualifiers: Laterality: unspecified laterality Qualified Code(s): J18.9 - Pneumonia, unspecified organism Category: Medical Code(s): J18.9 - Pneumonia, unspecified organism (2) HTN (hypertension) Current visit: Yes Status: Chronic Qualifiers: Hypertension type: essential hypertension Qualified Code(s): I10 - Essential (primary) hypertension Category: Medical Code(s): I10 - Essential (primary) hypertension (3) Tobacco use Current visit: Yes Status: Chronic Category: Social Hx Code(s): Z72.0 - Tobacco use (4) Hypoxemia Current visit: Yes Status: Acute Category: Medical Code(s): R09.02 - Hypoxemia - Assessment and plan all Dx Assessment and Plan for all problems:: Clinically and subjectively she is improved. Still SOA with exertion. On exam she has a few wheezes; rales have resolved. She is eager to go home but will need home O2. SHe plans to stay with her sister for a couple of weeks. Discussed smoking cessation and she states she has "quit for good". She plans to f/u with her PCP, Dr. Dukes, in [place].
--- NOTE | 2018-06-25 21:18 | Discharge Summary ---
General - General Admission date:: 06/21/18 <Roger Guthrie - 06/28/18 11:55> 06/21/18 <Pamella Lake - 06/25/18 21:18> Discharge date: 06/24/18 <Pamella Lake - 06/25/18 21:18> HPI HPI: Ms. Solares is a 67-year-old female patient of Dr. Brooke Dukes of [place]. She has a history of hypertension, hyperlipidemia, iron deficiency anemia, and left breast cancer. She is a smoker. She states approximately 1-1/2 weeks ago she began feeling poorly. She thought she had a cold and then thought she might have the flu. Approximately 3 AM last night she was unable to breathe and drove herself to the emergency room. She was found to have pneumonia and was admitted. <Pamella Lake - 06/25/18 21:18> Hospital Course Hospital Course: The patient's CXR showed possible infiltrates or atelectasis in the left mid to upper lung zone and right lower lobe. She admitted to noncompliance with her home medications. She did not even remember what medications she was supposed to be taking for her BP and HLP. Her BP did improve on medication and her wheezing and SOA improved as well with abx, nebs, steroids, and oxygen. The patient became more SOA after her symptoms had improved, therefore her IV fluids were stopped and she was given a dose of Lasix. She had a repeat CXR showing improvement in her pneumonia. Her SOA improved slightly. She was eager to go home but needed home O2. She planned to stay with her sister for a couple of weeks upon discharge. She will f/u with her PCP, Dr. Dukes, in [place]. <Pamella Lake - 06/25/18 21:18> Objective Vital signs: Temp Pulse Resp BP Pulse Ox 98.2 F 111 H 22 174/85 87 L 06/24/18 08:00 06/24/18 08:00 06/24/18 08:00 06/24/18 08:00 06/24/18 09:05 <Roger Guthrie - 06/28/18 11:55> Temp Pulse Resp BP Pulse Ox 98.2 F 111 H 22 174/85 87 L 06/24/18 08:00 06/24/18 08:00 06/24/18 08:00 06/24/18 08:00 06/24/18 09:05 <PiyushkarlosPamella - 06/25/18 21:18> Narrative: - Constitutional no acute distress - *Routine HEENT Exam Head: Present: normocephalic, atraumatic Eye: Present: EOMI, PERRL ENT: Present: mucous membranes dry - *Routine Neck Exam Present: supple, full ROM - *Routine Respiratory Exam Present: rales (bibasilar). Absent: wheezes - *Routine Cardiovascular Exam Present: RRR - *Routine Abdominal Exam Present: soft, normoactive bowel sounds. Absent: tenderness - *Routine Extremities Exam Absent: edema - *Routine Skin Exam Present: intact - *Routine Neurological Exam Present: alert, oriented X3, CN II-XII intact < <Pamella Lake - 06/25/18 21:18> Results Labs on day of discharge: Preliminary micro results at discharge 06/21/18 05:35 Blood Culture - Preliminary Blood NO GROWTH AFTER 48 HOURS 06/21/18 05:35 Blood Culture - Preliminary Blood NO GROWTH AFTER 48 HOURS <Pamella Lake - 06/25/18 21:18> DS: Diagnosis - Discharge Diagnosis (1) Community acquired pneumonia Status: Acute (2) HTN (hypertension) Status: Chronic (3) Tobacco use Status: Chronic (4) Hypoxemia Status: Acute <Pamella Lake - 06/25/18 21:10> (1) Community acquired pneumonia Status: Acute (2) HTN (hypertension) Status: Chronic (3) Tobacco use Status: Chronic (4) Hypoxemia Status: Acute <Roger Guthrie - 06/28/18 11:55> Discharge Plan - Patient Discharge Instructions ACTIVITY: Limited activity <Pamella Lake - 06/25/18 21:18> DIET: low fat, low cholesterol, low salt diet <Pamella Lake - 06/25/18 21:18> Patient Instructions: <Roger Guthrie - 06/28/18 11:55> Forms: <Roger Guthrie - 06/28/18 11:55> - Follow up Plan Follow up with: Brooke Dukes [Referring] - 1 week <Roger Guthrie - 06/28/18 11:55> Disposition: Home, Self-Care <JerriRoger Jm - 06/28/18 11:55> Home Medications: Home Medications Medication Instructions Recorded Confirmed Type RX: Ferrous Sulfate [Iron] 325 mg PO DAILY 06/21/18 06/21/18 History RX: Naproxen 500 mg PO BID 06/21/18 06/21/18 History <JerriRoger Jm - 06/28/18 11:55> Prescriptions/Medication Reconciliation: New RX: Azithromycin [Zithromax 500mg ADV] 500 mg IV DAILY #3 vial.port methylPREDNISolone [Medrol] 4 mg PO DIRECTED #1 tab.ds.pk Nicotine [Nicotine Patch 21mg/24hrs] 21 mg TD DAILY #30 patch RX: cefUROXime axetil [Ceftin 500mg Tab (GEQ)] 500 mg PO BID #14 tab Continue RX: Ferrous Sulfate [Iron] 325 mg PO DAILY RX: Naproxen 500 mg PO BID RX: Atorvastatin Calcium [Atorvastatin 20mg Tab] 20 mg PO DAILY #30 tab RX: Benazepril/Hydrochlorothiazide [Benazepril-Hctz 20-12.5 mg Tab] 1 each PO DAILY #30 tab <Roger Guthrie - 06/28/18 11:55> - Additional Information Additional Information: Concur with plan for discharge as outlined above. <Roger Guthrie - 06/28/18 11:55>
== END 2018-06-24 10:10 | disposition home or self-care (01) ==
LOC: 2ND 05:33 → ER 05:33 → 2ND 07:55
PROVIDERS: ADMIT Family Medicine; ATTEND Family Medicine

== ENCOUNTER → 2018-07-13 14:34 | Outpatient (CLI) | payer MEDICARE, SELFPAY ==
--- NOTE | 2018-07-13 14:38 | CT_ITS ---
CT lung screening EXAM: CT LUNG LOW DOSE WO CONTRAST HISTORY: 60 pack-year smoking history asymptomatic ITS.REASON: HX TOBACCO USE ORDERING PHYSICIAN: Sara Chavez MD PATIENT AGE: 67 years COMPARISON: None TECHNIQUE: The exam was performed on a GE Light Speed [address] scanner using 2.90 mGy CTDI. A low dose helical CT CHEST was performed on a multi-detector scanner. All CT scans at the facility use one or more dose reduction, viz: automated exposure control, ma/kV adjustment per patient size (including targeted exams where dose is matched to indication, i.e. head), or iterative reconstruction technique. The LDCT was performed in a facility that meets the criteria for the screening program. Data regarding this exam was submitted to ACR which is an approved registry. The order for this exam indicates that it came as a result of a lung cancer screening counseling shard decision-making visit that included all the elements required of such a visit including smoking cessation. The radiologist interpreting this exam meets the CMS criteria for the LDCT lung cancer screening program. The exam is reported using the Lung-RADS classification scale and reported to the ACR registry. NOTE: This study was performed for the specific purposes of lung cancer screening and is not an alternative to diagnostic chest CT. RADIATION DOSE: CTDI vol(CT dose Index-volume) = 2.90mG DLP (Dose Length Product) = 93.25 mGcm FINDINGS: Obstructive chronic bronchitis with scattered areas of postinflammatory fibrosis and evidence of old granulomatous disease. Degenerative changes of the thoracic spine with osteophytosis of the mid thoracic spine. Scattered small lymph nodes in the mediastinum measuring up to 1.6 x 1.6 cm. Coronary artery calcifications. 1.9 cm isodensity left hepatic lobe. 1.6 cm isodensity 5 hepatic lobe centrally. These are nonspecific measuring near water density and may be due to cysts and may be confirmed with ultrasound if clinically warranted. IMPRESSION: 1. Lung RADS Category: 2, benign 2. Other findings: COPD, old granulomatous disease, coronary artery calcification Mildly prominent mediastinal lymph nodes. Probable hepatic cyst RECOMMENDATIONS: 12 month LDCT follow-up
--- NOTE | 2018-07-13 14:39 | XR_ITS ---
XR DEXA axial skeleton HISTORY: ITS.REASON: POST MENOPAUSAL ORDERING PHYSICIAN: Sara Chavez MD PATIENT AGE: 67 years COMPARISON: None FINDINGS: The BMD measured at the left femoral neck is 0.763 g/cm squared with a T score of -2.0. This is considered Osteopenic according to the World Health Organization criteria. Fracture risk is Moderate. Treatment is advised. L1 L4 density has a T score of -1.8. IMPRESSION: Osteopenia with moderate fracture risk. Recommend treatment and follow-up exam June 2020
--- NOTE | 2018-07-13 14:43 | MM_ITS ---
MM Dig screening mamm BI w/CAD CAD Screening COMPARISON: Outside Digital mammograms with CAD 12/24/2015 and 02/07/2013 INDICATION: There is been previous lumpectomy left breast for malignancy. The patient has a history of breast cancer in the patient's mother diagnosed in her 60s TECHNIQUE: Standard CC and MLO images were obtained. R2 CAD reviewed. FINDINGS: Scattered fibroglandular densities are seen in both breasts. The left breast is smaller than the right possibly secondary to the previous lumpectomy. There is very little if any surgical scarring however. There are benign-appearing calcifications in the left breast. There is no suspicious lesion in either breast and there are no suspicious microcalcifications. IMPRESSION: Moderate breast density with minimal post lumpectomy scarring left breast and no suspicious lesion seen BI-RADS Category: 2 Benign Finding(s) RECOMMENDED FOLLOW-UP: 1YR - 1 YEAR FOLLOW-UP (A letter has been sent to the patient regarding results of the study.)
== END ==
PROVIDERS: Family Provider Family Medicine; PCP Family Medicine; Visit Provider Emergency Medicine
DX: Z87.891 Personal history of nicotine dependence (principal); Z13.820 Encounter for screening for osteoporosis; Z12.31 Encounter for screening mammogram for malignant neoplasm of breast
CPT/HCPCS: 77067; 77080

== ENCOUNTER → 2018-07-27 08:37 | Outpatient (CLI) | payer MEDICARE, SELFPAY ==
--- NOTE | 2018-07-27 08:39 | US_ITS ---
US liver HISTORY: ITS.REASON: LIVER CYST. Noted on recent CT ORDERING PHYSICIAN: Sara Chavez MD PATIENT AGE: 67 years COMPARISON: CT screening CT chest 07/13/2018 which included the uppermost abdomen PROCEDURE: transabdominal ultrasound right upper quadrant with focus on liver FINDINGS: PANCREAS:Unremarkable. No obvious mass or abnormal fluid collection. No ductal dilatation LIVER: Perhaps some very subtle early diffuse fatty liver changes 3 benign-appearing cysts are seen within the liver. These mass areas on CT. First cyst is seen at superior left lobe. It measures 2.2 cm x 1.3 cm Second cyst seen at the margin of the left lobe. 1.2 x 1.3 cm. Thirdcyst seen medial/central right lobe, adjacent to branch of the portal vein. It measures 1.36 cm and corresponds with an area centrally on the previous CT. These all appear to be benign cyst on ultrasound . No intrahepatic biliary ductal dilatation evident . Portal vein normal direction flow in size Common duct normal diameterMeasuring near 4 mm at hilum of liver RIGHT KIDNEY:1.5 x 1.6 cm benign-appearing cyst at lower pole right kidney. Cortex well-maintained. Right kidney measures 8.6 cm in length. No hydronephrosis.. . IMPRESSION... 3 benign-appearing liver cyst corresponding with the low-density areas seen on recent screening CT chest.. These appear to be simple benign hepatic cyst with no further workup required Also note a 1.6 cm cyst at lower pole right kidney No gallstones.. Common duct normal
== END ==
PROVIDERS: Family Provider Family Medicine; PCP Family Medicine; Visit Provider Emergency Medicine
DX: K76.89 Other specified diseases of liver (principal)
CPT/HCPCS: 76705

== ENCOUNTER → 2019-07-20 08:48 | Outpatient (CLI) | payer MEDICARE, SELFPAY ==
--- NOTE | 2019-07-20 09:02 | CA_ITS ---
APPROVED REPORT EXAM: Comprehensive 2D, Doppler, and color-flow Echocardiogram Coin Purse Framer: Danielle Martínez RDCS Ht: 5 ft 2 in Wt: 160lbs BSA: 1.74 BP: 150/97 mmHg Indications: Shortness of Breath, Obesity, EDEMA Hyperlipidemia, Hypertension/HDD 2D Dimensions LVOT 1.80 cm (M/F) 1.5-2.5 M-Mode Dimensions RVDd 3.90 cm (0.9-2.6) LA Diam 2.80 cm (1.9-4.0) LVDd 4.30 cm (3.5-5.7) Ao Diam 3.30 cm (2.0-3.7) LVDs 2.80 cm (3.5-5.7) AV Cusp 1.80 cm (1.5-2.6) IVSd 1.00 cm (0.6-1.1) PWd 1.00 cm (0.6-1.1) EF (Teich) 64.40% FS 34.90% EDV (Teich) 83.10 mL ESV (Teich) 29.60 mL LV Diastology E/A Ratio 0.5 MED E' 4.68 (< 7 cm/sec) E'/MED E' Ratio 9.80 (>14) LAT E' 7.90 (<10 cm/sec) E/LAT E' Ratio 5.80 (>14) Mitral Valve MV E Max Nestor. 45.90 (40-130 cm/s) MV A Velocity 94.80 (40-130 cm/s) E/A Ratio 0.50 Tricuspid Valve TR P. Velocity 242.00 cm/s RAP Estimate 10.00 mmHg RVSP 33.00 mmHg Left Ventricle Left atrium is mildly enlarged, left ventricle is normal size, mild concentric left ventricular hypertrophy, visually estimated ejection fraction 55% with mild basal septum and inferior basal wall hypokinesis. Grade 1 diastolic dysfunction seen without tissue Doppler evidence of raise left atrial pressure. Right Ventricle Right atrium and right ventricular normal size and contractility. Aortic Valve Aortic valve is minimally thickened and fibrosed, there is no aortic stenosis aortic insufficiency. Mitral Valve Mitral valve is grossly normal, there is no mitral stenosis, there is mild mitral regurgitation. Tricuspid Valve Tricuspid valve is grossly normal. There is no tricuspid stenosis, there is mild tricuspid regurgitation. Calculated right ventricular systolic pressure 38 mmHg. Pulmonic Valve Pulmonic valve is poorly visualized. Great Vessels Aortic root is normal size. Pericardium No significant pericardial effusion noted. Conclusion 1. Mildly enlarged left atrium, normal left ventricular size, mild concentric left ventricular hypertrophy, visually estimated ejection fraction 50% with segmental wall motion abnormality described above, grade 1 diastolic dysfunction seen without tissue Doppler evidence of raise left atrial pressure. 2. Mild mitral and tricuspid regurgitation, calculated right ventricular systolic pressure 38 mmHg consistent with mildly elevated right ventricular systolic pressure. 3. No significant pericardial effusion noted. Electronically signed by : Mariano Santana, 07/20/2019 14:20:06
== END ==
PROVIDERS: PCP Emergency Medicine; Visit Provider Emergency Medicine
DX: R06.02 Shortness of breath (principal); R60.9 Edema, unspecified
CPT/HCPCS: 93306

== ENCOUNTER → 2019-08-16 07:40 | Outpatient (CLI) | payer MEDICARE, SELFPAY ==
--- NOTE | 2019-08-16 | CA_ITS ---
APPROVED REPORT Exam: Pharmacologic Technologist: Shae Cole, Ht: 5 ft 2 in Wt: 195 lbs BSA: 1.89 m2 HR: 87 bpm BP: 183/81 mmHg Rhythm: NSR,PVC,ST-T ABNORMALITY INFERIORLY Medical History Medical History: HTN, Hyperlipidemia Medications: Asa,,,,, Atorvastatin,,,,, Lasix,,,,, BisOPROL,,,,, Alendronate,,,,, BenazepIL,,,,, Cardiac Risk Factors: HTN, Hyperlipidemia, FHX of CAD Stress Test Details Test: LEXISCAN HR Resting HR: 88 bpm Max Heart Rate (APMHR): 153 bpm Max HR Achieved: 103 bpm Target HR (85% APMHR): 130 bpm % of APMHR: 67 Recovery HR: 88 bpm BP Resting BP: 183.0/81.0 mmHg Max BP: 183.0/81.0 mmHg Recovery BP: 163.0/73.0 mmHg ECG Resting ECG: NSR,PVC,ST-T ABNORMALITY INFERIORLY Clinical Exercise duration: 04:15 min Highest Stage Achieved: Exercise capacity: 1.0 METs Stress ECG Conclusion SWITCHED FROM EXERCISE DUE TO LIMITED EXERCISE TOLERANCE. DURING INFUSION OF LEXISCAN PATIENT HAD MILD MALAISE. NO CHEST PAIN. NO ARRHYTHMIAS/ECTOPY. NO SIGNIFICANT ST-T CHANGES. UNREMARKABLE LEXISCAN STRESS. MYOVIEW IMAGES REPORTED SEPARATELY. Electronically signed by : Curtis Dawn, 08/17/2019 14:42:12
--- NOTE | 2019-08-16 07:42 | NM_ITS ---
APPROVED REPORT Exam: Nuclear Stress Test Indication: short of breath Patient Location: Outpatient Stress Tech: Blanca NICOLE Tech:Zakia GeLEN RT(R)(N) Ht: 5 ft 2 in Wt: 195 lbs Bra Size: 36c HR: 87 bpm BP: 183/81 mmHg BSA: 1.89 m2 BMI: 35.6 History: short of breath Procedure: Patient received a 0.4 mg of intravenous Lexiscan, resting heart rate 87 bpm, resting blood pressure 183/81 mmHg, with Lexiscan maximum heart rate achived was 98 bpm which is % of the maximum predicted heart rate and blood pressure was 170/80 mmHg. With Lexiscan, patient denied any complaint of chest pain. Cardiac Stress and Resting SPECT Images: Cardiac Stress and Resting SPECT images were obtained using technetium 99m Myoview 30.5 mCi stress and 10.64 mCi at rest. EF normal at 68%. Reversible defect in the anterior wall extending to the apex consistent with an area of ischemia. No fixed defects Conclusion: EF normal at 68%. Reversible defect in the anterior wall extending to the apex consistent with an area of ischemia Electronically signed by : Danyel Rosales MD 08/17/2019 17:20:04
--- NOTE | 2019-08-16 11:10 | HMH.ITSHM ---
Current Home Medications as stated by this patient Skylar Solares or access services representative. [] alendronate furosemide atorvastatin bisoprolol asa
== END ==
PROVIDERS: PCP Emergency Medicine; Visit Provider Nurse Practitioner Family
DX: R07.89 Other chest pain; R06.09 Other forms of dyspnea; I10 Essential (primary) hypertension; R00.0 Tachycardia, unspecified; Z72.0 Tobacco use
CPT/HCPCS: 78452; 93017; A9502; J2785

== ENCOUNTER → 2019-09-14 10:02 | Outpatient (CLI) | payer MEDICARE, SELFPAY ==
[2019-09-14 12:05] LABS: Anion Gap 17.3 mEq/L (5-15); Blood Urea Nitrogen 26 mg/dL (7-18); Calcium 8.8 mg/dL (8.5-10.1); Carbon Dioxide 27 mmol/L (21.0-32.0); Chloride 106 mmol/L (98-107); Creatinine,Serum 1.11 mg/dL (0.55-1.02); Estimated Glomerular Filt Rate 49 ml/min (>60); GFR (African American) 59 ML/MIN (>60); Glucose 102 mg/dL (74-106); Potassium 4.3 mmoL/L (3.5-5.1); Sodium 146 mmol/L (136-145)
== END ==
PROVIDERS: Visit Provider Internal Medicine Cardiovascular Disease
DX: R06.00 Dyspnea, unspecified (principal); E78.5 Hyperlipidemia, unspecified; Z82.49 Family history of ischemic heart disease and other diseases of the circulatory system; I50.33 Acute on chronic diastolic (congestive) heart failure
CPT/HCPCS: 36415; 80048; 83880

== ENCOUNTER → 2019-11-06 14:15 | Outpatient (CLI) | payer MEDICARE, SELFPAY ==
[2019-11-06 15:21] LABS: Hemoglobin A1C 6.3 % (0.0-7.0)
[2019-11-06 15:30] VITALS: PULSE 87; PULSE 90
[2019-11-06 15:39] LABS: Albumin Level 3.9 gm/dL (3.4-5.0); Albumin/Globulin Ratio 1.1 (1.1-1.8); Calcium 8.9 mg/dL (8.5-10.1); Chloride 104 mmol/L (98-107); Globulin 3.4 gm/dl (1.3-3.2); Glucose 95 mg/dL (74-106); HDL Cholesterol 45 mg/dL (29-89); Potassium 4.5 mmoL/L (3.5-5.1); Total Protein,Serum 7.3 gm/dL (6.4-8.2)
[2019-11-06 16:02] LABS: Alanine Aminotransferase 33 U/L (12-78); Alkaline Phosphatase 64 U/L (46-116); Anion Gap 16.5 mEq/L (5-15); Aspartate Amino Transferase 26 U/L (15-37); Bilirubin,Total 0.5 mg/dL (0.2-1.0); Blood Urea Nitrogen 33 mg/dL (7-18); Carbon Dioxide 28 mmol/L (21.0-32.0); Chol/HDL Ratio 3.8 (1-3.5); Cholesterol 170 mg/dL (140-200); Creatinine,Serum 1.46 mg/dL (0.55-1.02); Estimated Glomerular Filt Rate 36 ml/min (>60); GFR (African American) 43 ML/MIN (>60); LDL Cholesterol 99 mg/dL (0-130); Sodium 144 mmol/L (136-145); Thyroid Stimulating Hormone 3.58 uIU/ml (0.358-3.740); Triglycerides 131 mg/dL (30-200); VLDL Cholesterol 26 mg/dL (0-40)
== END ==
PROVIDERS: PCP Emergency Medicine; Visit Provider Physician Assistant
DX: J44.9 Chronic obstructive pulmonary disease, unspecified (principal); I10 Essential (primary) hypertension; E78.49 Other hyperlipidemia; Z13.29 Encounter for screening for other suspected endocrine disorder; Z79.899 Other long term (current) drug therapy
CPT/HCPCS: 36415; 80053; 80061; 83036; 84443; 94060; 94640; 94726; 94729

== ENCOUNTER → 2019-11-22 08:23 | Outpatient (CLI) | payer MEDICARE, SELFPAY ==
--- NOTE | 2019-11-22 08:31 | MM_ITS ---
PROCEDURE: MM DIG SCREENING MAMM BI W/CAD CLINICAL INDICATION: SCREENING There is a history of breast cancer patient's mother diagnosed in her 60s. There has been a previous lumpectomy left breast for malignancy COMPARISON: MM MAMMO DIGITAL DIAGNOSTIC W CAD BILAT from 12/24/2015 [facility] MM Dig screening mamm BI w/CAD from 07/13/2018 DEXAAX XR DEXA axial skeleton from 07/13/2018 TECHNIQUE: Standard CC and MLO images and 3D Tomosynthesis was obtained. R2 CAD reviewed. FINDINGS: Scattered fibroglandular densities are seen in both breasts. Again noted is the fact that the left breast is somewhat smaller than the right likely secondary to lumpectomy. There is very little if any postsurgical scarring noted. There are few scattered benign-appearing calcifications left breast and a single benign-appearing calcification right breast. There is a tiny benign-appearing nodular density deep upper central right breast likely an intramammary node. Jorge A images were reviewed showing no suspicious abnormality. There are no suspicious microcalcifications. IMPRESSION: Stable exam with no suspicious lesions seen BI-RAD Category: 2 Benign Finding(s) FOLLOW-UP: 1YR 1 Year Follow-up (A letter has been sent to the patient regarding results of the study.) Dictated by: Dr. Austin Parekh MD 11/23/2019 10:[address] Austin Parekh MD in [place] 11/23/2019 10:14
== END ==
PROVIDERS: PCP Emergency Medicine; Visit Provider Physician Assistant
DX: Z12.31 Encounter for screening mammogram for malignant neoplasm of breast (principal)
CPT/HCPCS: 77063; 77067

== ENCOUNTER → 2019-11-30 07:50 | Outpatient (CLI) | payer MEDICARE, SELFPAY ==
--- NOTE | 2019-11-30 07:52 | CT_ITS ---
PROCEDURE: CT LUNG SCREENING CLINICAL INDICATION: HX TOBACCO USE COMPARISON: No exams were available for comparison TECHNIQUE: The exam was performed on a GE Light Speed [address] scanner using 2.90 mGy CTDI. A low dose helical CT CHEST was performed on a multi-detector scanner. All CT scans at the facility use one or more dose reduction, viz: automated exposure control, ma/kV adjustment per patient size (including targeted exams where dose is matched to indication, i.e. head), or iterative reconstruction technique. The LDCT was performed in a facility that meets the criteria for the screening program. Data regarding this exam was submitted to ACR which is an approved registry. The order for this exam indicates that it came as a result of a lung cancer screening counseling shard decision-making visit that included all the elements required of such a visit including smoking cessation. The radiologist interpreting this exam meets the CMS criteria for the LDCT lung cancer screening program. The exam is reported using the Lung-RADS classification scale and reported to the ACR registry. NOTE: This study was performed for the specific purposes of lung cancer screening and is not an alternative to diagnostic chest CT. RADIATION DOSE: CTDI vol(CT dose Index-volume) = 2.90mG DLP (Dose Length Product) = 96.38 mGcm Lung Rads Category: One FINDINGS: One there is a 6 millimeter calcified pulmonary nodule in the left upper lobe consistent with granuloma. There is no noncalcified nodule suspicious for malignancy. Linear densities in the left upper lobe are likely due to atelectasis or scarring. There is no acute infiltrate pleural or pericardial effusion. There is nonspecific lymphadenopathy. Right azygos lymph node is enlarged to 1.3 x 1.6 centimeters. Other noncalcified enlarged and nonenlarged lymph nodes are noted. There are some lymph nodes containing some eccentric calcifications. Post inflammatory and/or neoplastic etiologies would have to be considered. OTHER FINDINGS: Coronary arterial calcifications are noted. The liver has an abnormal appearance. A 1.6 centimeter hypodensity is seen in the left liver dome image 57 series 3 and another lesion in the lateral segment of left liver 2.2 centimeters is noted image 64 series 3 and a 1.9 centimeter hypodensity in the medial right liver is seen image [address] of the abdomen and pelvis are recommended to further assess the liver parenchyma. Neoplastic disease including metastatic disease would have to be considered. There is enlargement of the left adrenal gland which measures 1.5 centimeters. Hounsfield unit measurements of 44 does not fulfill strict criteria for benign adenoma and is suspicious. IMPRESSION: Lung rads score of 1 with benign appearing nodule as described. Abnormal appearance of the liver and left adrenal gland suspicious for neoplastic disease benign or malignant. Additional imaging via postcontrast CT of abdomen and pelvis is recommended. Dictated by: Sergio Lucas 12/01/2019 11:08 Electronically signed by Sergio Lucas in [place] 12/01/2019 11:08
== END ==
PROVIDERS: PCP Physician Assistant; Visit Provider Physician Assistant
DX: Z87.891 Personal history of nicotine dependence (principal); Z12.2 Encounter for screening for malignant neoplasm of respiratory organs

== ENCOUNTER → 2019-12-07 09:16 | Outpatient (CLI) | payer MEDICARE, SELFPAY ==
[2019-12-07 10:22] LABS: Blood Urea Nitrogen 48 mg/dl (7-17); Estimated Glomerular Filt Rate 35 ml/min (>60); GFR (African American) 42 ML/MIN (>60)
== END ==
PROVIDERS: Visit Provider Physician Assistant
DX: Z01.818 Encounter for other preprocedural examination (principal)
CPT/HCPCS: 36415; 82565; 84520

== ENCOUNTER → 2019-12-12 08:45 | Outpatient (CLI) | payer MEDICARE, SELFPAY ==
--- NOTE | 2019-12-12 08:59 | CT_ITS ---
PROCEDURE: CT ABDOMEN PELVIS WO/W CON CLINICAL INDICATION: LIVER LESION Follow-up liver lesion and left adrenal lesion as seen on recent screening CT of the chest COMPARISON: LUNGSCREEN CT lung screening from 07/13/2018 CT LUNG SCREENING from 11/30/2019 TECHNIQUE: IV Contrast: 75ML OPTIRAY 350 Oral Contrast none Axial images obtained with sagittal and coronal reformats. All CT scans at the facility use one or more dose reduction, viz: automated exposure control, ma/kV adjustment per patient size (including targeted exams where dose is matched to indication, i.e. head), or iterative reconstruction technique. FINDINGS: LOWER THORAX: Coronary artery calcifications noted. ABDOMEN & PELVIS: There are at least 3 hypodense lesions of the liver to the left hepatic lobe which measure maximum diameter 2.2 and 1.6 cm and 1 in the right hepatic lobe centrally a maximum diameter 1.9 cm. These do not demonstrate contrast enhancement and are felt to represent hepatic cysts. There is some mild enlargement of the left adrenal gland without abnormal enhancement probably benign in nature the density is near water at 6 Hounsfield units. No renal or ureteral calculi. There is a 2 cm cyst involving the right kidney anteriorly. There are few scattered small retroperitoneal mesenteric lymph nodes nonspecific. The spleen, right adrenal gland, and pancreas have an unremarkable appearance. There is a small umbilical hernia which contains fat. Diverticulosis is noted involving the sigmoid colon. No intestinal obstruction or free air. No evidence of diverticulitis. No evidence of appendicitis. There is minimal punctate calcification of the uterus which could be fibroid in nature IMPRESSION: 1. Three hypodense lesions of the liver consistent with hepatic cyst. 2. Mild nodularity of left adrenal gland which could be adenomatous in nature. Probably not significantly changed from 07/13/2018. Recommend continued 12 month follow-up. 3. Other nonacute findings as described 4. Coronary artery calcifications. Dictated by: Danyel Rosales MD 12/13/2019 09:14 Electronically signed by Danyel Rosales MD in [place] 12/13/2019 09:14
== END ==
PROVIDERS: PCP Physician Assistant; Visit Provider Physician Assistant
DX: D37.6 Neoplasm of uncertain behavior of liver, gallbladder and bile ducts (principal)
CPT/HCPCS: 74178; Q9967

== ENCOUNTER → 2020-03-22 09:53 | Outpatient (CLI) | payer MEDICARE, SELFPAY | PROVIDERS: Visit Provider Physician Assistant | DX: N28.9 Disorder of kidney and ureter, unspecified (principal) ==

== ENCOUNTER → 2020-04-03 14:34 | Outpatient (CLI) | payer MEDICARE, SELFPAY ==
[2020-04-03 15:51] LABS: Chloride 105 mmol/L (98-107); Sodium 137 mmol/L (136-145)
[2020-04-03 15:52] LABS: Potassium 5.3 mmoL/L (3.5-5.1)
[2020-04-03 15:54] LABS: Blood Urea Nitrogen 45 mg/dl (7-17); Estimated Glomerular Filt Rate 32 ml/min (>60); GFR (African American) 39 ML/MIN (>60)
[2020-04-03 15:55] LABS: Anion Gap 14.3 mEq/L (5-15); Calcium 8.6 mg/dl (8.4-10.2); Carbon Dioxide 23 mmol/L (22.0-30.0); Glucose 100 mg/dl (74-100)
== END ==
PROVIDERS: Visit Provider Physician Assistant
DX: N28.9 Disorder of kidney and ureter, unspecified (principal)
CPT/HCPCS: 36415; 80048

== ENCOUNTER 2020-05-18 20:41 | Emergency (ER) | payer MEDICARE, SELFPAY ==
[2020-05-18 20:55] VITALS: BP 147/87; PULSE 89; RESP 16; TEMP 36.7; O2SAT 96; BMI 37.3
--- NOTE | 2020-05-18 20:55 | XR_ITS ---
PROCEDURE: XR FOOT RT MIN 3V CLINICAL INDICATION: SWELLING Pain and swelling COMPARISON: No exams were available for comparison FINDINGS: No fracture or dislocation. No lytic or blastic change. There is normal mineralization. Osteoarthritic changes are present at the 1st metatarsal tarsal joint. Bony hypertrophy is present at the talonavicular joint dorsally with bony spurring. There are osteoarthritic changes at the ankle with mild pes cavus with old fractures of the distal tib fib. Other findings:None. IMPRESSION: Chronic changes as described above Dictated by: Danyel Rosales MD 05/19/2020 08:27 Electronically signed by Danyel Rosales MD in [place] 05/19/2020 08:27
[2020-05-18 21:02] VITALS: BP 147/87; PULSE 89; RESP 16; TEMP 36.7; O2SAT 96; BMI 37.5
--- NOTE | 2020-05-18 21:07 | HMH.EDUTC ---
[facility] [place] Disposition Clinical Impression: Arthritis Disposition: Home, Self-Care Condition on Discharge: Good Instructions: DI for Foot Pain Additional Instructions: call pcp in am for appointment elevated foot ice 20 mins than repeat for comfort if symptoms worsen return or be seen in ed. Prescriptions: predniSONE [Prednisone 20mg Tab] 20 mg PO BID #10 tab Prescription Printed Referrals: Pamella Lake PA [Primary Care Provider] - Josefa Morris DPM [Staff Physician] - Time of Disposition: 21:11 Medical Decision Making - Glen Inquiry Pt receiving controlled substance: No Vital Signs: 05/18/20 20:55 05/18/20 21:02 Temperature 98.1 F 98.1 F Temperature Source Oral Oral Pulse Rate [Left Brachial] 89 89 Respiratory Rate 16 16 Blood Pressure [Left Arm] 147/87 H 147/87 H Blood Pressure Mean [Left Arm] 107 107 Blood Pressure Source [Left Arm] Automatic Cuff Automatic Cuff Blood Pressure Position [Left Arm] Sitting Sitting 02 Sat by Pulse Oximetry 96 96 Oxygen Delivery Method Room Air Room Air Orders (Tests/Meds): ORDERS Category Date Time Status XR foot RT min 3V Stat Exams 05/18/20 20:55 Taken - Radiology Data #1 Image(s): Foot/Toes Image Reviewed: Yes I reviewed the patient's radiology image w/the ED provider Preliminary Findings: No Fracture Seen arthritis [facility] [place] HPI - General Chief complaint: Urgent Treatment Center Stated complaint: R foot pain Time Seen by Provider: 05/18/20 21:07 Mode of Arrival: Ambulatory Source of Information: Patient Limitations: No Limitations Description of Symptoms (Recalled from Triage Doc. by RN): PATIENT C/O RIGHT FOOT PAIN X 3 DAYS, NO KNOWN INJURY HEENT Symptoms (Recalled from RN notes): No Resp Symptoms (Recalled from RN notes): No Skin Symptoms (Recalled from RN notes): No MS Symptoms (Recalled from RN notes): Yes Functional Status (Recalled from RN notes): WNL - History of Present Illness Provider Complaint: 69 yr old female presents for rt foot pain. Pt states pain in the top of her foot that has caused pain with walking since . - Related Data Home Medications Medication Instructions Recorded Confirmed alendronate 70 mg tablet 70 mg PO QWEEK 08/09/19 10/04/19 aspirin 81 mg tablet,delayed 81 mg PO DAILY 08/09/19 10/04/19 release furosemide 40 mg tablet 40 mg PO DAILY 08/09/19 10/04/19 omeprazole 20 mg capsule,delayed 20 mg PO DAILY 08/09/19 10/04/19 release Previous Rx's Medication Instructions Recorded Atorvastatin Calcium [Lipitor 20mg 20 mg PO DAILY #30 tab 06/24/18 Tab] benazepril 20 mg tablet 20 mg PO DAILY #90 tab 11/06/19 spironolactone 25 mg tablet 25 mg PO DAILY #90 tab 11/30/19 bisoprolol fumarate 10 mg tablet 10 mg PO DAILY #30 tab 04/03/20 predniSONE [Prednisone 20mg 20 mg PO BID #10 tab 05/18/20 Tab] Allergies Allergy/AdvReac Type Severity Reaction Status Date / Time No Known Allergies Allergy Verified 04/03/20 13:14 - Worker's Comp Is this a Worker's Comp case?: No H History - Hepatitis A Screen Drug use history?: No High risk sexual behaviors?: No History of sexually transmitted infection?: No Currently employed?: No Childcare worker?: No Do you have indoor plumbing?: Yes Do you have electricity?: Yes Attestation statement:: This patient has been screened for Hepatitis A risk factors. I have reviewed the patient's past medical history: Yes Medical History: Reports:: Cancer, Hyperlipidemia, Hypertension, Lung Disease Denies:: Diabetes Mellitus Type 1, Diabetes Mellitus Type 2, Internal Pacemaker, MRSA, Seizures Other Medical History: Reports: Anemia Laterality Cases: Left: Lumpectomy Other Surgeries: Yes: Cancer Surgery, Cardiac Catheterization. No: Pacemaker Amputation: No Fractures: Yes (hx ankle fracture with surgery) - Social History Smoking Status: Former smoker Tobacco Type: cigarettes # Packs/Day (cigarettes): 2 #Yrs smoked (if former smoker)
[2020-05-18 21:44] VITALS: BP 147/87; PULSE 89; RESP 16; TEMP 36.7; O2SAT 96
== END 2020-05-18 21:47 | disposition home or self-care (01) ==
PROVIDERS: Emergency Provider Nurse Practitioner Family; PCP Physician Assistant
DX: M19.071 Primary osteoarthritis, right ankle and foot (principal); I10 Essential (primary) hypertension; E78.5 Hyperlipidemia, unspecified; D64.9 Anemia, unspecified; Z87.891 Personal history of nicotine dependence; Z79.899 Other long term (current) drug therapy
CPT/HCPCS: G0463; 73630; 96372; 99202

== ENCOUNTER → 2020-05-22 10:26 | Outpatient (CLI) | payer MEDICARE, SELFPAY ==
[2020-05-22 11:18] LABS: Chloride 106 mmol/L (98-107); Potassium 4.5 mmoL/L (3.5-5.1); Sodium 142 mmol/L (136-145)
[2020-05-22 11:21] LABS: Anion Gap 14.5 mEq/L (5-15); Blood Urea Nitrogen 22 mg/dl (7-17); Calcium 8.9 mg/dl (8.4-10.2); Carbon Dioxide 26 mmol/L (22.0-30.0); Estimated Glomerular Filt Rate 55 ml/min (>60); GFR (African American) 67 ML/MIN (>60); Glucose 118 mg/dl (74-100)
[2020-05-22 12:06] LABS: Uric Acid 8.1 mg/dl (2.5-6.2)
== END ==
PROVIDERS: Visit Provider Physician Assistant
DX: M79.671 Pain in right foot (principal); N28.9 Disorder of kidney and ureter, unspecified
CPT/HCPCS: 36415; 80048; 84550

== ENCOUNTER → 2020-05-22 13:07 | Outpatient (CLI) | payer MEDICARE, SELFPAY ==
--- NOTE | 2020-05-22 | XR_ITS ---
PROCEDURE: XR CHEST PORTABLE CLINICAL HISTORY: COVID 19 TESTING Cough COMPARISON: CR CXR1VP XR chest portable from 06/21/2018 CR CXR2V XR chest 2V from 06/22/2018 FINDINGS: Mild cardiomegaly without failure. Garment artifact is present overlying the mid aspect of the mediastinum The lungs are clear without infiltrates, suspicious nodules, or pleural effusions. No acute bony abnormalities. IMPRESSION: Mild cardiomegaly otherwise negative Dictated b Danyel Rosales MD 05/22/2020 16:13 Danyel Rosales MD in [place] 05/22/2020 16:13
[2020-05-22 21:52] LABS: Basophils % 0.1 % (0.1-2.0); Eosinophils # 0.1 K/mm3 (0.0-0.4); Eosinophils % 0.6 % (0.1-12.0); Hematocrit 31.1 % (37.0-47.0); Hemoglobin 10.3 g/dL (12.2-16.2); Lymphocytes # 1.8 K/mm3 (0.7-4.5); Lymphocytes % 16.3 % (10-50); Mean Corpuscular HGB Conc 33.1 g/dL (31.8-35.4); Mean Corpuscular Hemoglobin 32.2 pg (27.0-31.2); Mean Corpuscular Volume 97.5 fl (81-99); Mean Platelet Volume 9.1 fl (7.4-10.4); Monocytes # 0.7 K/mm3 (0.1-1.0); Monocytes % 6.4 % (1.7-9.3); Neutrophils # 8.3 K/mm3 (1.8-7.8); Neutrophils % 76.7 % (37.0-80.0); Platelet Count 356 K/mm3 (142-424); Red Blood Count 3.19 M/mm3 (4.20-5.40); Red Cell Distribution Width 13.5 % (11.5-17.5); White Blood Count 10.9 K/mm3 (4.8-10.8)
== END ==
PROVIDERS: PCP Physician Assistant; Visit Provider Physician Assistant
DX: Z03.818 Encounter for observation for suspected exposure to other biological agents ruled out (principal)
CPT/HCPCS: 36415; 71045; 80048; 84550; 85025; U0003

== ENCOUNTER → 2020-05-26 09:12 | Outpatient (CLI) | payer MEDICARE, SELFPAY | PROVIDERS: PCP Physician Assistant; Visit Provider Physician Assistant | DX: R06.02 Shortness of breath (principal) | CPT/HCPCS: 94618 ==

== ENCOUNTER 2020-08-14 14:00 | Outpatient (RCR) | payer MEDICARE, SELFPAY ==
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
== END 2020-08-14 14:05 | disposition home or self-care (01) ==
LOC: PT 14:00
PROVIDERS: PCP Physician Assistant; Visit Provider Podiatrist
DX: I89.0 Lymphedema, not elsewhere classified (principal)
CPT/HCPCS: 97110; 97140; 97162; 97760

== ENCOUNTER → 2020-10-07 12:36 | Outpatient (CLI) | payer MEDICARE, SELFPAY | PROVIDERS: PCP Physician Assistant; Visit Provider Internal Medicine Cardiovascular Disease | DX: G47.33 Obstructive sleep apnea (adult) (pediatric) (principal); R06.09 Other forms of dyspnea; R06.83 Snoring; R40.0 Somnolence; R53.83 Other fatigue | CPT/HCPCS: G0399 ==

== ENCOUNTER 2021-01-09 04:14 | Emergency (ER) | payer MEDICARE, SELFPAY ==
[2021-01-09 04:09] VITALS: BP 186/89; PULSE 92; RESP 22; TEMP 37.1; O2SAT 98; BMI 40.2
--- NOTE | 2021-01-09 04:22 | XR_ITS ---
PROCEDURE: XR FOOT LT MIN 3V CLINICAL INDICATION: pain Pain and swelling COMPARISON: CR XR FOOT RT MIN 3V from 05/18/2020 FINDINGS: No fracture or dislocation. No lytic or blastic change. There is normal mineralization. The joint spaces are well-preserved. No significant degenerative/arthritic changes. No erosive changes evident. Other findings:There is a small calcaneal spur. There is mild generalized soft tissue swelling. A faint small calcific density is noted along the dorsal aspect of the foot on the lateral view in the mid metatarsal region nonspecific IMPRESSION: Mild generalized soft tissue swelling otherwise negative Dictated by: Danyel Rosales MD 01/09/2021 05:07 Danyel Rosales MD in [place] 01/09/2021 05:07
[2021-01-09 04:26] LABS: Basophils % 0.5 % (0.1-2.0); Eosinophils # 0.1 K/mm3 (0.0-0.4); Eosinophils % 2.2 % (0.1-12.0); Hematocrit 31.2 % (37.0-47.0); Lymphocytes # 1.4 K/mm3 (0.7-4.5); Lymphocytes % 21.2 % (10-50); Mean Corpuscular HGB Conc 32.2 g/dL (31.8-35.4); Mean Corpuscular Hemoglobin 30.4 pg (27.0-31.2); Mean Corpuscular Volume 94.7 fl (81-99); Mean Platelet Volume 8.7 fl (7.4-10.4); Monocytes # 0.6 K/mm3 (0.1-1.0); Monocytes % 8.6 % (1.7-9.3); Neutrophils # 4.3 K/mm3 (1.8-7.8); Neutrophils % 67.5 % (37.0-80.0); Platelet Count 280 K/mm3 (142-424); Red Cell Distribution Width 14.8 % (11.5-17.5); White Blood Count 6.4 K/mm3 (4.8-10.8)
[2021-01-09 04:33] LABS: Anion Gap 13.1 mEq/L (5-15); Blood Urea Nitrogen 15 mg/dl (7-17); Calcium 9.1 mg/dl (8.4-10.2); Carbon Dioxide 25 mmol/L (22.0-30.0); Chloride 112 mmol/L (98-107); Creatinine Clearance Estimated 76 mL/min (50-200); Estimated Glomerular Filt Rate 49 ml/min (>60); GFR (African American) 60 ML/MIN (>60); Glucose 123 mg/dl (74-100); Potassium 4.1 mmoL/L (3.5-5.1); Sodium 146 mmol/L (136-145); Uric Acid 7.1 mg/dl (2.5-6.2)
[2021-01-09 05:09] VITALS: PULSE 77; O2SAT 95
[2021-01-09 05:30] VITALS: BP 168/94; PULSE 78; O2SAT 94
[2021-01-09 06:00] VITALS: BP 191/95; PULSE 78; RESP 18; O2SAT 96
[2021-01-09 06:30] VITALS: BP 172/87; PULSE 78; RESP 17; O2SAT 92
--- NOTE | 2021-01-09 06:38 | HMH.EDGENADL ---
ED Disposition Clinical Impression: Foot pain Qualifiers: Laterality: left Qualified Code(s): M79.672 - Pain in left foot Disposition: Home, Self-Care Condition on Discharge: Good Instructions: DI for Acute Pain -- Adult Additional Instructions: call pcp for follow up today and use meds Prescriptions: predniSONE [Prednisone 20mg Tab] 20 mg PO BID #10 tab Transmission Status: Pending to [id number] Referrals: Pamella Lake PA [Primary Care Provider] - - Critical Care Critical Care Time: No Attestation: On 01/09/21, the high probability of a clinically significant, sudden or life threatening deterioration of the following system(s) required my full and direct attention, intervention and personal management. The time I documented below is in addition to time spent performing reported procedures but includes the following listed in this critical care notation. Medical Decision Making - Medical Records Medical records reviewed: Yes: I reviewed the patient's medical records. - Glen Inquiry Pt receiving controlled substance: No Vital Signs: 01/09/21 04:09 01/09/21 05:09 01/09/21 05:30 Temperature 98.7 F Temperature Source Oral Pulse Rate 77 78 Pulse Rate [Right Radial] 92 H Respiratory Rate 22 Blood Pressure 168/94 H Blood Pressure [Right Arm] 186/89 H Blood Pressure Mean 118 Blood Pressure Mean [Right Arm] 121 Blood Pressure Source [Right Arm] Automatic Cuff Blood Pressure Position [Right Arm] Sitting 02 Sat by Pulse Oximetry 98 95 94 L Oxygen Delivery Method Room Air 01/09/21 06:00 01/09/21 06:30 Temperature Temperature Source Pulse Rate 78 78 Pulse Rate [Right Radial] Respiratory Rate 18 17 Blood Pressure 191/95 H 172/87 H Blood Pressure [Right Arm] Blood Pressure Mean 127 118 Blood Pressure Mean [Right Arm] Blood Pressure Source [Right Arm] Blood Pressure Position [Right Arm] 02 Sat by Pulse Oximetry 96 92 L Oxygen Delivery Method - Lab Data Lab results reviewed: Yes: I reviewed the patient's lab results. Lab Results 01/09/21 04:15: WBC 6.4, RBC 3.30 L, Hgb 10.0 L, Hct 31.2 L, MCV 94.7, MCH 30.4, MCHC 32.2, RDW 14.8, Plt Count 280, MPV 8.7, Neut % (Auto) 67.5, Lymph % (Auto) 21.2, [place] % (Auto) 8.6, Eos % (Auto) 2.2, Baso % (Auto) 0.5, Neut # (Auto) 4.3, Lymph # (Auto) 1.4, [place] # (Auto) 0.6, Eos # (Auto) 0.1, Baso # (Auto) 0.0 01/09/21 04:15: Sodium 146 H, Potassium 4.1, Chloride 112 H, Carbon Dioxide 25, Anion Gap 13.1, BUN 15, Creatinine 1.10 H, Estimated Creat Clear 76, Estimated GFR 49 L, Est GFR ( Amer) 60, Glucose 123 H, Uric Acid 7.1 H, Calcium 9.1 Result diagrams: 01/09/21 04:15 01/09/21 04:15 Orders (Tests/Meds): ED MEDICATIONS Generic Name Dose Route Start Last Admin Trade Name Freq PRN Reason Stop Dose Admin Sodium Chloride 1,000 mls @ 999 mls/hr 01/09/21 04:30 01/09/21 04:25 Sod Chlor 0.9% 1000ml Bag IV 01/09/21 05:30 999 mls/hr .Q1H1M DARLENE Administration Discontinued Medications Generic Name Dose Route Start Last Admin Trade Name Freq PRN Reason Stop Dose Admin Colchicine 0.6 mg 01/09/21 04:53 01/09/21 05:03 Colchicine 0.6mg Tablet PO 01/09/21 04:54 0.6 mg ONCE ONE Administration Ketorolac Tromethamine 30 mg 01/09/21 04:19 01/09/21 04:26 Ketorolac 30mg/Ml Vial IV 01/09/21 04:20 30 mg ONCE ONE Administration Methylprednisolone Sodium Succinate 125 mg 01/09/21 04:19 01/09/21 04:25 Methylprednisolone Sod Succ 125mg Vial IV 01/09/21 04:20 125 mg ONCE ONE Administration ORDERS Category Date Time Status C-Reactive Protein Stat Lab 01/09/21 04:15 Received ESR [Erythrocyte Sedimentation Rate] Stat Lab 01/09/21 04:15 Received - Radiology Data #1 Image(s): Foot/Toes Image Reviewed: Yes I reviewed the patient's radiology image Preliminary Findings: No Fracture Seen Medical Decision Narrative: pt with acute pain over the 3 days lt f
--- NOTE | 2021-01-09 07:00 | PC.NURSE ---
explained and showed patient how to use crotches. informed patient to practice with them with family around. she keeps wanting to put the crotches to far forward and tries to lean to forward at the same time.
[2021-01-09 07:12] LABS: C-Reactive Protein 31.7 mg/L (0-4)
[2021-01-09 07:43] LABS: Erythrocyte Sedimentation Rate > 140 mm/hr (0-30)
[2021-01-09 08:08] VITALS: BP 172/87; PULSE 78; RESP 20; TEMP 37.1; O2SAT 95
== END 2021-01-09 08:17 | disposition home or self-care (01) ==
PROVIDERS: Emergency Provider Emergency Medicine; PCP Physician Assistant
DX: M79.672 Pain in left foot (principal); I10 Essential (primary) hypertension; E78.5 Hyperlipidemia, unspecified; J44.9 Chronic obstructive pulmonary disease, unspecified; K21.9 Gastro-esophageal reflux disease without esophagitis; Z87.891 Personal history of nicotine dependence; Z79.899 Other long term (current) drug therapy
CPT/HCPCS: 73630; 80048; 84550; 85025; 85651; 86140; 96365; 96375; 99283

== ENCOUNTER → 2021-04-30 12:29 | Outpatient (CLI) | payer MEDICARE, SELFPAY ==
--- NOTE | 2021-04-30 13:54 | CT_ITS ---
PROCEDURE: CT LUNG SCREENING CLINICAL INDICATION: lung cancer screening Former smoker Quit smoking 3 years ago. 35 pack year smoking history COMPARISON: CT CT LUNG SCREENING from 11/30/[address] ABDOMEN PELVIS WO/W CON from 12/12/2019 TECHNIQUE: The exam was performed on a [employer] Light Speed [address] scanner using 2.90 mGy CTDI. A low dose helical CT CHEST was performed on a multi-detector scanner. All CT scans at the facility use one or more dose reduction, viz: automated exposure control, ma/kV adjustment per patient size (including targeted exams where dose is matched to indication, i.e. head), or iterative reconstruction technique. The LDCT was performed in a facility that meets the criteria for the screening program. Data regarding this exam was submitted to ACR which is an approved registry. The order for this exam indicates that it came as a result of a lung cancer screening counseling shard decision-making visit that included all the elements required of such a visit including smoking cessation. The radiologist interpreting this exam meets the CMS criteria for the LDCT lung cancer screening program. The exam is reported using the Lung-RADS classification scale and reported to the ACR registry. NOTE: This study was performed for the specific purposes of lung cancer screening and is not an alternative to diagnostic chest CT. RADIATION DOSE: CTDI vol(CT dose Index-volume) = 2.90mG DLP (Dose Length Product) = 92.21 mGcm FINDINGS: COPD changes calcified granuloma within the lingula. No suspicious nodules apparent. There are mildly prominent mediastinal lymph nodes which appear stable OTHER FINDINGS: Coronary artery calcifications. No change small left adrenal nodule. There is fatty infiltration of the liver. Previously there was a hypodensity in the right hepatic lobe. This is not well demonstrated on today's study and could be due to the fact that there is now diffuse fatty liver infiltration which could obscure lesion. Degenerative changes thoracic spine which appear stable with mild kyphosis. Mild wedging of T4 unchanged. IMPRESSION: Lung-RADS Category 1 Negative Follow-up: Continue annual screening with LDCT in 12 months Other findings as described above. Dictated by: Danyel Rosales MD 05/11/2021 08:29 Danyel Rosales MD in [place] 05/11/2021 08:29
== END ==
PROVIDERS: PCP Physician Assistant; Visit Provider Internal Medicine Pulmonary Disease
DX: Z87.891 Personal history of nicotine dependence (principal); Z12.2 Encounter for screening for malignant neoplasm of respiratory organs
CPT/HCPCS: 71271; 94060; 94726; 94729

== ENCOUNTER 2021-05-15 06:36 | Emergency (ER) | payer MEDICARE, SELFPAY ==
[2021-05-15 06:38] VITALS: BP 148/60; PULSE 93; RESP 18; TEMP 36.9; O2SAT 95; BMI 37.5
--- NOTE | 2021-05-15 06:49 | HMH.EDGENADL ---
ED Disposition Clinical Impression: Arthritis of foot Disposition: Home, Self-Care Condition on Discharge: Good Additional Instructions: Prednisone as prescribed. Tylenol 3 as needed for pain. Rest and elevate your foot. Additional instructions for CONTROLLED SUBSTANCES: You have been prescribed a medication that is a controlled substance. Controlled substances include pain medications known as opiates and sedative nerve medications known as benzodiazepines. Tramadol, fioricet, and gabapentin are also controlled substances. Some common opiates include: Codeine (such as Tylenol #3) Hydrocodone (Vicodin, Lortab, Lorcet, [place]) Oxycodone (Percocet, Percodan, Oxycodone, Oxy IR) Some common benzodiazepines include: Diazepam (Valium) Lorazepam (Ativan) Alprazolam (Xanax) Clonazepam (Klonopin) Oxazepam (Serax) All of these controlled substances are highly addictive and frequently abused. Misuse can and frequently does lead to addiction as well as overdose and . Medication should be stored in a locked cabinet or other secure storage unit. Do not store the medication in a motor vehicle. Short term supplies, 3 days or less, are prescribed because of the highly addictive nature of the medication. Any of the controlled substance medication NOT taken should be disposed of properly and NOT SAVED. The recommended method of disposing of unused medications is: Place the medicines in a sealable plastic bag. If the medicine is a solid, crush it or add water to dissolve it. Add something undesirable (cat litter, coffee grounds, etc.) Dispose of sealed bag in household trash Do not flush or pour unused medicines down a sink or drain. Controlled substances should not be shared, given away or sold. Because of the addictive nature and frequent abuse, these medications are sometimes stolen. These medications should be kept in a safe place where they cannot be stolen. Do not keep them in your car or purse. Lost or stolen prescriptions for controlled substances WILL NOT BE REFILLED in this emergency department, regardless of whether a police report was filed. Prescriptions: predniSONE [Prednisone 20mg Tab] 20 mg PO BID #10 tab Transmission Status: Pending to [id number] Referrals: Pamella Lake PA [Primary Care Provider] - - Critical Care Critical Care Time: No Attestation: On , the high probability of a clinically significant, sudden or life threatening deterioration of the following system(s) required my full and direct attention, intervention and personal management. The time I documented below is in addition to time spent performing reported procedures but includes the following listed in this critical care notation. Medical Decision Making - Medical Records Medical records reviewed: Yes: I reviewed the patient's medical records. MR Fischer: Reviewed emergency department visit 01/09/2021. Left foot pain, x-rays obtained as well as blood work. X-ray report reviewed as well. Also noted that she was seen in the urgent treatment center 05/18/2020 for right foot pain. Had follow-up with Dr. Morris for that, clinic notes reviewed. - Glen Inquiry Pt receiving controlled substance: Yes Glen was queried for this patient: Yes Risks and benefits of using a controlled substance: were discussed with pt by me Vital Signs: 05/15/21 06:38 Temperature 98.4 F Temperature Source Oral Pulse Rate [Right] 93 H Respiratory Rate 18 Blood Pressure [Right Arm] 148/60 H Blood Pressure Mean [Right Arm] 89 02 Sat by Pulse Oximetry 95 Orders (Tests/Meds): ED MEDICATIONS Discontinued Medications Generic Name Dose Route Start Last Admin Trade Name Freq PRN Reason Stop Dose Admin Dexamethasone Sodium Phosphate 8 mg 05/15/21 07:01 Dexamethasone 4mg/Ml 1ml Vial IM 05/15/21 07:02 ONCE ONE Medical Decision Narrative: The patient has had emergency department work-up for the s
[2021-05-15 07:19] VITALS: BP 129/74; PULSE 68; RESP 16; TEMP 36.6; O2SAT 98
== END 2021-05-15 07:20 | disposition home or self-care (01) ==
PROVIDERS: Emergency Provider Emergency Medicine; PCP Physician Assistant
DX: M19.072 Primary osteoarthritis, left ankle and foot (principal); J44.9 Chronic obstructive pulmonary disease, unspecified; K21.9 Gastro-esophageal reflux disease without esophagitis; I10 Essential (primary) hypertension; E78.5 Hyperlipidemia, unspecified; I42.8 Other cardiomyopathies; Z87.891 Personal history of nicotine dependence
CPT/HCPCS: 96372; 99281

== ENCOUNTER 2021-07-10 05:04 | Inpatient (IN) | payer MEDICARE, SELFPAY ==
[2021-07-10] VITALS (13 sets, daily range): BP systolic 77–129; BP diastolic 32–73; PULSE 81–92; RESP 18–25; TEMP 36.8–37.6; O2SAT 93–99; BMI 40.4; BMI 40.2; BMI 41.1
--- NOTE | 2021-07-10 05:06 | ECG_ITS ---
APPROVED REPORT Exam: Resting ECG HR:92 bpm ECG Measurements Heart Rate 92 AXES MD 118 P 34 QRSd 76 QRS 28 QT 340 T 35 QTc 420 Conclusion Normal sinus rhythm Nonspecific ST and T wave abnormality Abnormal ECG Electronically signed by : Kamar Rae MD 07/12/2021 20:58:11
--- NOTE | 2021-07-10 05:14 | XR_ITS ---
PROCEDURE INFORMATION: Exam: XR Chest Exam date and time: 07/10/2021 5:14 AM Age: 70 years old Clinical indication: Shortness of breath; Patient HX: Copd; Additional info: SOA TECHNIQUE: Imaging protocol: XR of the chest. Views: 1 view. COMPARISON: CR XR CHEST PORTABLE 05/22/2020 4:00 PM FINDINGS: Lungs: There are mild perihilar basilar infiltrates. Pleural spaces: There is no pleural effusion or pneumothorax. Heart/Mediastinum: The cardiac silhouette and mediastinal contours are grossly unremarkable. Bones/joints: The bones are demineralized but grossly intact. IMPRESSION: Mild perihilar basilar infiltrates.
[2021-07-10 05:33] LABS: ABG Base Excess -5.9 mmol/L (-2.4-2.3); ABG HCO3 18.2 mmhg (22.0-26.0); ABG Oxygen Saturation 97 % (90-100); ABG PH 7.45 mmol/L (7.35-7.45); Oxygen 2 LPM NC %; Source Left Radial
[2021-07-10 05:41] LABS: Alanine Aminotransferase 66 U/L (12-78); Albumin Level 3.9 g/dl (3.5-5.0); Albumin/Globulin Ratio 1.3 (1.1-1.8); Alkaline Phosphatase 39 U/L (38-126); Anion Gap 15.6 mEq/L (5-15); Aspartate Amino Transferase 66 U/L (14-36); Bilirubin,Total 0.4 mg/dl (0.2-1.3); Blood Urea Nitrogen 30 mg/dl (7-17); Calcium 8.4 mg/dl (8.4-10.2); Carbon Dioxide 21 mmol/L (22.0-30.0); Chloride 107 mmol/L (98-107); Creatinine Clearance Estimated 46 mL/min (50-200); Estimated Glomerular Filt Rate 28 ml/min (>60); GFR (African American) 34 ML/MIN (>60); Globulin 2.9 g/dL (1.3-3.2); Glucose 128 mg/dl (74-100); Potassium 4.6 mmoL/L (3.5-5.1); Sodium 139 mmol/L (136-145); Total Protein,Serum 6.8 g/dl (6.3-8.2)
[2021-07-10 05:42] LABS: Lactic Acid 1.1 mmol/L (0.7-2.1)
[2021-07-10 05:46] LABS: Basophils % 0.5 % (0.1-2.0); C-Reactive Protein 17.3 mg/L (0-4); Eosinophils # 0.6 K/mm3 (0.0-0.4); Eosinophils % 9.1 % (0.1-12.0); Hematocrit 31.6 % (37.0-47.0); Hemoglobin 9.7 g/dL (12.2-16.2); Lymphocytes # 0.9 K/mm3 (0.7-4.5); Lymphocytes % 13.9 % (10-50); Mean Corpuscular HGB Conc 30.6 g/dL (31.8-35.4); Mean Corpuscular Hemoglobin 28.4 pg (27.0-31.2); Mean Corpuscular Volume 92.7 fl (81-99); Mean Platelet Volume 9.2 fl (7.4-10.4); Monocytes # 0.3 K/mm3 (0.1-1.0); Monocytes % 4.6 % (1.7-9.3); Neutrophils # 4.8 K/mm3 (1.8-7.8); Neutrophils % 71.8 % (37.0-80.0); Platelet Count 264 K/mm3 (142-424); Red Cell Distribution Width 15.3 % (11.5-17.5); White Blood Count 6.6 K/mm3 (4.8-10.8)
[2021-07-10 05:49] LABS: Influenza A, PCR Not Detected (NotDetected); Influenza B, PCR Not Detected (NotDetected)
[2021-07-10 05:58] LABS: NT Pro Brain Natriuretic Pep. 256 pg/mL (0-125)
[2021-07-10 06:00] LABS: Procalcitonin 1.77 ng/mL (0.0-2.0)
[2021-07-10 06:02] LABS: Troponin I < 0.01 ng/ml (0.00-0.034)
[2021-07-10 06:05] LABS: Coronavirus 19, PCR Detected (NotDetected)
--- NOTE | 2021-07-10 06:22 | HMH.EDSOB ---
ED Disposition Clinical Impression: COVID-19, Acute exacerbation of chronic obstructive airways disease, BEKAH (acute kidney injury) Disposition: Admitted as Observation Condition on Discharge: Good - Critical Care Critical Care Time: No Attestation: On 07/10/21, the high probability of a clinically significant, sudden or life threatening deterioration of the following system(s) required my full and direct attention, intervention and personal management. The time I documented below is in addition to time spent performing reported procedures but includes the following listed in this critical care notation. Medical Decision Making - Medical Records Medical records reviewed: Yes: I reviewed the patient's medical records. - Glen Inquiry Pt receiving controlled substance: No Vital Signs: 07/10/21 05:05 Temperature 99.7 F H Temperature Source Oral Pulse Rate [Left] 89 Respiratory Rate 25 H Blood Pressure [Left Arm] 105/51 L Blood Pressure Mean [Left Arm] 69 02 Sat by Pulse Oximetry 96 Oxygen Delivery Method Nasal Cannula Oxygen Flow Rate (LPM) 2 - Lab Data Lab results reviewed: Yes: I reviewed the patient's lab results. Lab Results 07/10/21 05:10: WBC 6.6, RBC 3.40 L, Hgb 9.7 L, Hct 31.6 L, MCV 92.7, MCH 28.4, MCHC 30.6 L, RDW 15.3, Plt Count 264, MPV 9.2, Neut % (Auto) 71.8, Lymph % (Auto) 13.9, Gooding % (Auto) 4.6, Eos % (Auto) 9.1, Baso % (Auto) 0.5, Neut # (Auto) 4.8, Lymph # (Auto) 0.9, Gooding # (Auto) 0.3, Eos # (Auto) 0.6 H, Baso # (Auto) 0.0 07/10/21 05:10: Sodium 139, Potassium 4.6, Chloride 107, Carbon Dioxide 21 L, Anion Gap 15.6 H, BUN 30 H, Creatinine 1.80 H, Estimated Creat Clear 46, Estimated GFR 28 L, Est GFR ( Amer) 34 L, Glucose 128 H, Calcium 8.4, Total Bilirubin 0.4, AST 66 H, ALT 66, Alkaline Phosphatase 39, Troponin I < 0.01, C-Reactive Protein 17.3 H, Total Protein 6.8, Albumin 3.9, Globulin 2.9, Albumin/Globulin Ratio 1.3 07/10/21 05:10: Lactate 1.1 07/10/21 05:10: ESR 52 H 07/10/21 05:10: Procalcitonin 1.77 07/10/21 05:10: SARS-CoV-2 (PCR) Detected A, Influenza A Untype (PCR) Not detected, Influenza Type B (PCR) Not detected 07/10/21 05:10: NT-Pro-B Natriuret Pep 256 H 07/10/21 05:31: Specimen Source Left radial, O2 % 2 lpm nc, ABG pH 7.45, ABG pCO2 27.0 L, ABG pO2 92.0, ABG HCO3 18.2 L, ABG Total CO2 19.0 L, ABG O2 Saturation 97, ABG Base Excess -5.9 L Result diagrams: 07/10/21 05:10 07/10/21 05:10 Orders (Tests/Meds): ED MEDICATIONS Generic Name Dose Route Start Last Admin Trade Name Freq PRN Reason Stop Dose Admin Sodium Chloride 1,000 mls @ 999 mls/hr 07/10/21 05:45 07/10/21 06:04 Sod Chlor 0.9% 1000ml Bag IV 07/10/21 06:45 999 mls/hr .Q1H1M DARLENE Administration Ceftriaxone Sodium 1 gm/ 50 mls @ 100 mls/hr 07/10/21 06:45 07/10/21 06:45 Sodium Chloride IV 07/24/21 06:44 100 mls/hr Q24H DARLENE Administration Azithromycin 500 mg/ Sodium 250 mls @ 250 mls/hr 07/10/21 06:45 Chloride IV 07/24/21 06:44 Q24H DARLENE Discontinued Medications Generic Name Dose Route Start Last Admin Trade Name Freq PRN Reason Stop Dose Admin Acetaminophen 1,000 mg 07/10/21 05:32 07/10/21 06:04 Acetaminophen 500mg Tab PO 07/10/21 05:33 1,000 mg ONCE ONE Administration Dexamethasone Sodium Phosphate 10 mg 07/10/21 06:38 07/10/21 06:39 Dexamethasone 4mg/Ml 5ml Mdv IV 07/10/21 06:39 10 mg ONCE ONE Administration ORDERS Category Date Time Status Troponin I Q3H Lab 07/10/21 08:30 Ordered Troponin I Q3H Lab 07/10/21 11:30 Ordered UA [Urinalysis and Microscopic] Stat Lab 07/10/21 05:19 Ordered Blood Culture Stat Micro 07/10/21 05:31 Received - Radiology Data #1 Image(s): Chest Image Reviewed: Yes I have reviewed radiologist's interpretation Preliminary Findings: Abnormal - ECG Data Tracing #1 Normal Sinus Rhythm: Yes Ischemic changes: non-specific ST-T wave changes - Physician Consults Physician Consulted: palmer
[2021-07-10 06:28] LABS: Erythrocyte Sedimentation Rate 52 mm/hr (0-30)
--- NOTE | 2021-07-10 06:30 | PC.NURSE ---
speaking with Dr. Mak
--- NOTE | 2021-07-10 06:35 | PC.NURSE ---
Notified house of admission
--- NOTE | 2021-07-10 07:23 | PC.NURSE ---
Received report from Rashad Cartwright RN @ this time
--- NOTE | 2021-07-10 08:09 | HMH.PHAVTE ---
[facility] Pharm[facility] VTE Monitoring - Patient Demographics Admission date: 07/10/21 Report Date: 07/10/21 Time: 08:09 Allergies/Adverse Reactions: Patient Allergies No Known Allergies Allergy (Verified 07/01/21 09:03) Height: 1.57 m Weight: 99.79 kg Patient Problems: Current Active Problems COVID-19 (Acute) Acute exacerbation of chronic obstructive airways disease (Acute) BEKAH (acute kidney injury) (Acute) - VTE Risk Labs: VTE Related Lab Results Hgb 9.7 g/dL (12.2-16.2) L 07/10/21 05:10 Hct 31.6 % (37.0-47.0) L 07/10/21 05:10 Plt Count 264 K/mm3 (142-424) 07/10/21 05:10 BUN 30 mg/dl (7-17) H 07/10/21 05:10 Creatinine 1.80 mg/dl (0.52-1.04) H 07/10/21 05:10 Estimated Creat Clear 46 mL/min (50-200) 07/10/21 05:10 Clinical Trial Participant: No - Prophylaxis VTE Prophylaxis Ordered?: Yes Types of VTE Prophylaxis: TEDS Knee High
[2021-07-10 09:38] LABS: Troponin I < 0.01 ng/ml (0.00-0.034)
--- NOTE | 2021-07-10 10:33 | PC.NURSE ---
Is @ [facility] 1253 this AM
[2021-07-10 10:34] LABS: D-Dimer 0.75 ug/mL (0.0-0.5)
--- NOTE | 2021-07-10 11:08 | HMH.PHAINT ---
verified home medication list using list from [facility]
--- NOTE | 2021-07-10 12:21 | HMH.PULMCON ---
*Admission Date: 07/10/21 *Reason for consult:: Acute hypoxic respiratory failure, COVID-19 pneumonia *History of present illness: Ms. Solares 70-year-old male greater than [id number] smoking history prior smoker following in pulmonary clinic for asthma COPD overlap syndrome on using inhalers on a as needed basis presented to the ER with worsening respiratory distress eventually needing oxygen supplementation to maintain saturations at desired level and found to be COVID-19 positive and pulmonary was called for further management. Patient denies any sick contacts. [facility] History Medical History: Reports:: Cancer (Breast), Cardiomyopathy, Chronic Obstructive Pulmonary Disease (COPD), Gastroesophageal Reflux Disease(GERD), Hyperlipidemia, Hypertension, Lung Disease Denies:: Diabetes Mellitus Type 1, Diabetes Mellitus Type 2, Internal Pacemaker, MRSA, Seizures *Have you ever received a pneumonia vaccine?: Yes *Have you received a flu vaccine this season?: No Other Medical History: Reports: Anemia, Arthritis Laterality Cases: Left: Lumpectomy Other Surgeries: Yes: Cancer Surgery, Cardiac Catheterization, Colonoscopy, Other. No: Pacemaker Amputation: No Fractures: Yes (hx ankle fracture with surgery) - *Social History Last grade of school completed: High school graduate Smoking Status: Former smoker Tobacco Type: cigarettes # Packs/Day (cigarettes): 2 #Yrs smoked (if former smoker): 35 Alcohol Intake: never Alcohol Intake Frequency:: a few times a month Substance Use Type: denies use *Occupational Status:: retired Housing: house Household Members: none *Travel in the last 8 weeks: None Family Hx:: Heart Attack ROS - Cons Reports anorexia, Reports body ache(s) - Eyes Denies change in vision - ENT Denies abnormal hearing - Card Reports shortness of breath, Reports shortness of breath with activity - Resp Respiratory: Reports chest congestion, Reports cough, Denies pain on inspiration, Denies pain with cough - GI Gastrointestingal: Denies: abdominal pain - Psych Reports abnormal sleep pattern Meds Home Medications Medication Instructions Recorded Confirmed Type Atorvastatin Calcium [Lipitor 20mg 20 mg PO DAILY #30 tab 06/24/18 07/10/21 Rx Tab] alendronate 70 mg tablet 70 mg PO WEEKLY 08/09/19 07/10/21 History aspirin 81 mg tablet,delayed 81 mg PO DAILY 08/09/19 07/10/21 History release furosemide 40 mg tablet 40 mg PO DAILY 08/09/19 07/10/21 History diclofenac sodium 1 % topical gel 4 g TOPICAL QID PRN 30 Days #100 g 05/20/20 07/10/21 Rx colchicine 0.6 mg tablet 0.6 mg PO DAILY PRN 07/10/20 07/10/21 History benazepril 20 mg tablet 20 mg PO DAILY #90 tab 08/26/20 07/10/21 Rx spironolactone 25 mg tablet 25 mg PO MOWEFR tab 10/02/20 07/10/21 History albuterol sulfate 90 mcg/actuation 1 inh INHALATION Q6H PRN 90 Days 06/24/21 07/10/21 Rx aerosol inhaler #8.5 g ipratropium 0.5 mg-albuterol 3 mg 3 ml INHALATION QID PRN 90 Days 07/01/21 07/10/21 Rx (2.5 mg base)/3 mL nebulization #360 ml soln Budesonide/Formoterol Fumarate 2 puff INHALATION BID 07/10/21 07/10/21 History [Budesonide-Formoterol 160-4.5] Omeprazole 40 mg PO DAILY 07/10/21 07/10/21 History bisoproloL fumarate [Bisoprolol 10 mg PO DAILY 07/10/21 07/10/21 History Fumarate] Allergies Allergy/AdvReac Type Severity Reaction Status Date / Time No Known Allergies Allergy Verified 07/01/21 09:03 Exam - Constitutional Constitutional:: Present: no acute distress, comfortable - HENMT Exam HENMT: Present: normocephalic, atraumatic - Eye Exam Eyes:: Present: normal appearance both eyes and related structures - Neck Exam Neck:: Present: normal visual inspection - Respiratory Exam Respiratory:: Present: able to speak in complete sentences, no respiratory distress, wheezing - Cardiovascular Exam Cardiac:: Present: S1, S2 - GI Exam GI:: Present: soft, obese - Skin Exam Skin: Present: warm, no rash - Neurological
--- NOTE | 2021-07-10 12:25 | CA_ITS ---
APPROVED REPORT Bilateral Lower Extremity Venous Study for [employer] Helper: CT Indications Hypoxia Vein Imaging CFV (R): compressive, spontaneous, phasic, augmentation SFJ (R): compressive, spontaneous, phasic, augmentation FEM (R): compressive, spontaneous, phasic, augmentation POP (R): compressive, spontaneous, phasic, augmentation DFV (R): compressive, spontaneous, phasic, augmentation PTV (R): compressive, spontaneous, phasic, augmentation GSV (R): compressive, spontaneous, phasic, augmentation Peroneals (R):compressive, spontaneous, phasic, augmentation GAS (R): compressive, spontaneous, phasic, augmentation CFV (L): compressive, spontaneous, phasic, augmentation SFJ (L): compressive, spontaneous, phasic, augmentation FEM (L): compressive, spontaneous, phasic, augmentation POP (L): compressive, spontaneous, phasic, augmentation DFV (L): compressive, spontaneous, phasic, augmentation PTV (L): compressive, spontaneous, phasic, augmentation GSV (L): compressive, spontaneous, phasic, augmentation Peroneals (L):compressive, spontaneous, phasic, augmentation GAS (L): compressive, spontaneous, phasic, augmentation Findings Bilateral venous negative for DVT/SVT. Vessels compressible no reflux noted Conclusion Bilateral venous negative for DVT/SVT. Vessels compressible no reflux noted Electronically signed by : Danyel Rosales MD 07/10/2021 15:56:15
[2021-07-10 12:31] LABS: Troponin I < 0.01 ng/ml (0.00-0.034)
--- NOTE | 2021-07-10 13:27 | HMH.HP ---
*Admission Date: 07/10/21 <Pamella Lake 07/10/21 13:34> *Chief complaint: SOA, weakness, diarrhea <Pamella Lake 07/10/21 13:34> *History of present illness: Ms. Gutierrez is a 70-year-old female with a history of hypertension, CAD, hyperlipidemia, COPD followed by pulmonology, and anemia who began feeling poorly approximately 4 days ago. She states she had had progressive shortness of breath, dizziness, loss of taste, poor appetite, and a productive cough. Her shortness of air worsened yesterday and she therefore called 911 to transport her to the emergency room. She has had diarrhea for the past few days but no nausea or vomiting. She has not had a Covid vaccine. She denies any known Covid exposure. She was seen and evaluated in the emergency room and tested positive for Covid. She did appear dehydrated as her renal function was elevated. Her BNP was only elevated at 256. She had a chest x-ray showing mild perihilar basilar infiltrates. She was admitted for further evaluation and treatment. <Pamella Lake 07/10/21 13:34> [facility] History I have reviewed the patient's past medical history: Yes <Pamella Lake 07/10/21 13:34> Medical History: Reports:: Cancer (Breast), Cardiomyopathy, Chronic Obstructive Pulmonary Disease (COPD), Gastroesophageal Reflux Disease(GERD), Hyperlipidemia, Hypertension, Lung Disease Denies:: Diabetes Mellitus Type 1, Diabetes Mellitus Type 2, Internal Pacemaker, MRSA, Seizures <Pamella Lake 07/10/21 13:34> *Have you ever received a pneumonia vaccine?: Yes <Pamella Lake 07/10/21 13:34> *Have you received a flu vaccine this season?: No <Pamella Lake 07/10/21 13:34> Other Medical History: Reports: Anemia, Arthritis <Pamella Lake 07/10/21 13:34> Laterality Cases: Left: Lumpectomy <Pamella Lake 07/10/21 13:34> Other Surgeries: Yes: Cancer Surgery, Cardiac Catheterization, Colonoscopy, Other. No: Pacemaker <Pamella Lake 07/10/21 13:34> Amputation: No <Pamella Lake 07/10/21 13:34> Fractures: Yes (hx ankle fracture with surgery) <Pamella Lake 07/10/21 13:34> - *Social History Last grade of school completed: High school graduate <Pamella Lake 07/10/21 13:34> Smoking Status: Former smoker <AleksandraPamella 07/10/21 13:34> Tobacco Type: cigarettes <AleksandraPamella 07/10/21 13:34> # Packs/Day (cigarettes): 2 <AleksandraPamella 07/10/21 13:34> #Yrs smoked (if former smoker): 35 <AleksandraPamella 07/10/21 13:34> Alcohol Intake: never <AleksandraPamella 07/10/21 13:34> Alcohol Intake Frequency:: a few times a month <PiyushkarlosPamella 07/10/21 13:34> Substance Use Type: denies use <PiyushkarlosPamella 07/10/21 13:34> *Occupational Status:: retired <PiyushkarlosPamella 07/10/21 13:34> Housing: house <AleksandraPamella 07/10/21 13:34> Household Members: none <AleksandraPamella 07/10/21 13:34> *Travel in the last 8 weeks: None <PiyushkarlosPamella 07/10/21 13:34> Family Hx:: Cancer, Heart Attack <PiyushkarlosPamella 07/10/21 13:34> Review of Systems - Constitutional Reports fatigue, Reports headache(s), Reports malaise, Reports weakness, Reports weight loss <AleksandraPamella 07/10/21 13:34> - Eyes Denies blurry vision, Denies double vision <PiyushkarlosPamella 07/10/21 13:34> - ENT Reports nasal congestion, Reports sore throat <AleksandraPamella 07/10/21 13:34> - *Cardiovascular Reports shortness of breath, Denies chest pain <AleksandraPamella 07/10/21 13:34> - *Respiratory Reports chest congestion, Reports cough, Reports shortness of breath <AleksandraPamella 07/10/21 13:34> - *Gastrointestinal Reports loose stools, Reports nausea, Denies abdominal pain, Denies vomiting <Pamella Lake 07/10/21 13:34> - *Genitourinary Denies difficulty urinating, Denies painful urination <Pamella Lake 07/10/21 13:34> - *Musculoskeletal Denies joint pain, Denies body aches <Pamella Lake 07/10/21 13:34> - *Neurologic Reports headache(s), Reports weakness, Denies abnormal hearing, Den
--- NOTE | 2021-07-10 13:59 | PC.NURSE ---
pt given cup . cup is at bedside and she understands to call when she coughs up sputum.
[2021-07-11] VITALS (7 sets, daily range): BP systolic 110–156; BP diastolic 67–91; PULSE 85–100; RESP 16–24; TEMP 36.6–38.4; O2SAT 90–98; BMI 43.0
--- NOTE | 2021-07-11 03:51 | PC.NURSE ---
Patient is A&O x4. Patient has remained on 2LNC this shift. Oxygen saturation has maintained above 90%. Patient has rested well with no complaints voiced this shift. VSS, call light within reach, will continue to monitor.
[2021-07-11 05:34] LABS: Microscopic, Urine URINE MICROSCOPIC (MICROSCOPIC)
[2021-07-11 05:36] LABS: Appearance,Urine CLEAR (Clear); Bilirubin,Urine Negative (Negative); Blood, Urine Negative (Negative); Color,Urine YELLOW (Yellow); Glucose,Urine (UA) Negative (Negative); Ketones,Urine Negative (Negative); Leukocyte Esterase,Urine Negative (Negative); Nitrate,Urine Negative (Negative); PH,Urine 6.5 (5.0-8.5); Protein,Urine Negative (Negative); Urobilinogen,Urine 0.2 EU/dl (0.2)
[2021-07-11 05:41] LABS: Renal Epithelial Cells,Urine Occasional #/lpf (0); Squamous Epithelial Cell,Urine Occasional #/hpf (0-5)
[2021-07-11 08:17] LABS: Basophils % 0.4 % (0.1-2.0); Eosinophils % 0.5 % (0.1-12.0); Hematocrit 28.8 % (37.0-47.0); Hemoglobin 8.7 g/dL (12.2-16.2); Lymphocytes # 1.4 K/mm3 (0.7-4.5); Mean Corpuscular HGB Conc 30.3 g/dL (31.8-35.4); Mean Corpuscular Volume 92.7 fl (81-99); Mean Platelet Volume 8.6 fl (7.4-10.4); Monocytes # 0.3 K/mm3 (0.1-1.0); Monocytes % 4.8 % (1.7-9.3); Neutrophils # 3.9 K/mm3 (1.8-7.8); Neutrophils % 69.2 % (37.0-80.0); Platelet Count 267 K/mm3 (142-424); Red Blood Count 3.11 M/mm3 (4.20-5.40); Red Cell Distribution Width 15.1 % (11.5-17.5); White Blood Count 5.7 K/mm3 (4.8-10.8)
[2021-07-11 08:26] LABS: Anion Gap 16.6 mEq/L (5-15); Blood Urea Nitrogen 22 mg/dl (7-17); Calcium 8.2 mg/dl (8.4-10.2); Carbon Dioxide 16 mmol/L (22.0-30.0); Chloride 114 mmol/L (98-107); Creatinine Clearance Estimated 33 mL/min (50-200); Estimated Glomerular Filt Rate 45 ml/min (>60); GFR (African American) 54 ML/MIN (>60); Glucose 150 mg/dl (74-100); Magnesium 1.9 mg/dl (1.6-2.3); Potassium 4.6 mmoL/L (3.5-5.1); Sodium 142 mmol/L (136-145)
--- NOTE | 2021-07-11 10:02 | HMH.ACPN2 ---
Internal Medicine - PN: Subj *Date: 07/11/21 *Time: 10:02 Interval history: Patient with no new complaints, still feels short of breath. Exam Vital signs and Labs for Last 24 Hours: Temp Pulse Resp BP Pulse Ox 98.5 F 85 24 156/78 H 95 07/11/21 08:00 07/11/21 08:00 07/11/21 08:00 07/11/21 08:00 07/11/21 08:00 Laboratory Results - last 24 hr 07/10/21 09:59: D-Dimer 0.75 H 07/10/21 11:33: Troponin I < 0.01 07/11/21 05:28: Urine Color Yellow, Urine Appearance Clear, Urine pH 6.5, Ur Specific [place] 1.010, Urine Protein Negative, Urine Glucose (UA) Negative, Urine Ketones Negative, Urine Blood Negative, Urine Nitrate Negative, Urine Bilirubin Negative, Urine Urobilinogen 0.2, Ur Leukocyte Esterase Negative, Ur Squamous Epith Cells Occasional, Ur Renal Epithelial Cell Occasional 07/11/21 08:06: WBC 5.7, RBC 3.11 L, Hgb 8.7 L, Hct 28.8 L, MCV 92.7, MCH 28.0, MCHC 30.3 L, RDW 15.1, Plt Count 267, MPV 8.6, Neut % (Auto) 69.2, Lymph % (Auto) 25.0, [place] % (Auto) 4.8, Eos % (Auto) 0.5, Baso % (Auto) 0.4, Neut # (Auto) 3.9, Lymph # (Auto) 1.4, [place] # (Auto) 0.3, Eos # (Auto) 0.0, Baso # (Auto) 0.0 07/11/21 08:06: Sodium 142, Potassium 4.6, Chloride 114 H, Carbon Dioxide 16 L, Anion Gap 16.6 H, BUN 22 H D, Creatinine 1.20 H D, Estimated Creat Clear 33, Estimated GFR 45 L, Est GFR ( Amer) 54 L D, Glucose 150 H, Calcium 8.2 L, Magnesium 1.9 Vital Signs - 24 hr 07/10/21 11:05 07/10/21 16:00 07/10/21 19:41 Temperature 98.6 F 98.9 F Pulse Rate [Left] 87 86 Respiratory Rate 20 20 Blood Pressure [Left Arm] 95/61 L 129/68 02 Sat by Pulse Oximetry 98 96 97 07/10/21 20:00 07/11/21 00:00 07/11/21 04:00 Temperature 98.8 F 98.4 F 97.9 F Pulse Rate [Left] 88 91 H Respiratory Rate 18 20 16 Blood Pressure [Left Arm] 126/73 110/68 131/91 H 02 Sat by Pulse Oximetry 95 95 93 L 07/11/21 05:45 07/11/21 08:00 Temperature 98.5 F Pulse Rate [Left] 85 Respiratory Rate 24 Blood Pressure [Left Arm] 156/78 H 02 Sat by Pulse Oximetry 97 95 I & O for Last 24 hours: Intake & Output 07/08/21 07/09/21 07/10/21 07/11/21 23:59 23:59 23:59 23:59 Intake Total 600 / 600 2272 / 2272 Balance 600 / 600 2272 / 2272 Weight 225 lb 233 lb 7 oz - Constitutional no acute distress - *Routine HEENT Exam Head: Present: normocephalic Eye: Present: EOMI, PERRL ENT: Present: mucous membranes moist - *Routine Neck Exam Present: supple. Absent: lymphadenopathy - *Routine Respiratory Exam Present: wheezes, crackles - *Routine Cardiovascular Exam Present: RRR - *Routine Abdominal Exam Present: soft, normoactive bowel sounds. Absent: tenderness - *Routine Extremities Exam Absent: cyanosis, clubbing, edema - *Routine Skin Exam Present: warm. Absent: rash - *Routine Neurological Exam Present: alert, oriented X3 Assessment and Plan (1) Pneumonia due to COVID-19 virus Status: Acute Category: Medical Code(s): U07.1 - COVID-19; J12.82 - Pneumonia due to coronavirus disease 2019 (2) BEKAH (acute kidney injury) Status: Acute Category: Medical Code(s): N17.9 - Acute kidney failure, unspecified (3) CAD (coronary artery disease) Status: Chronic Qualifiers: Coronary Disease-Associated Artery/Lesion type: [place] artery [place] vs. transplanted heart: [place] heart Associated angina: without angina Qualified Code(s): I25.10 - Atherosclerotic heart disease of [place] coronary artery without angina pectoris Category: Medical Code(s): I25.10 - Atherosclerotic heart disease of [place] coronary artery without angina pectoris (4) Diastolic dysfunction Status: Chronic Category: Medical Code(s): I51.89 - Other ill-defined heart diseases (5) HLD (hyperlipidemia) Status: Chronic Qualifiers: Hyperlipidemia type: mixed hyperlipidemia Qualified Code(s): E78.2 - Mixed hyperlipidemia Category: Medical Code(s): E78.5 - Hyperlipidemia, unspecified (6) HTN (hypertens
--- NOTE | 2021-07-11 20:17 | PC.NURSE ---
Multiple attempts to get an IV on pt were made this shift. VSS. Pt does have a 20 G in the rfa/wrist area. CB in reach.
[2021-07-12] VITALS (10 sets, daily range): BP systolic 109–170; BP diastolic 55–86; PULSE 81–106; RESP 0–41; TEMP 36.9–37.1; O2SAT 90–100; BMI 43.0
--- NOTE | 2021-07-12 02:23 | PC.NURSE ---
Addendum entered by La Nena Santiago RN 07/12/21 03:05: Patient placed on continuous pulse ox due to an increase in oxygen needs. Original Note: Patient is alert and oriented x4. Patient at the beginning of shift was tolerating 2LNC. Patient stated she had gotten up to go to the bathroom around 2330/0000. The techs advised this RN that her respirations where where about 30 a minute and heart rate above 100. Upon assessment of patient this RN asked is she was short of breath and the patient said yes. Patient oxygen saturation was 88-90% on 2LNC. Patient oxygen increased to 3LNC and RT was notified. Patient given Duoneb treatment and placed on a Venti mask at 15L/50%. Patient was advised to lay prone where she stated I cannot do that . Patient is currently laying on her left side with the head of the bed at 20 degrees and respirations are coming down. Oxygen saturation was at 92% prior to exiting patient room. Patient states that she is comfortable in that position. Advised patient to call and ask for help when going to the bathroom. Bedside commode placed in patient room for easier access. VSS, call light within reach, will continue to monitor closely.
--- NOTE | 2021-07-12 04:03 | PC.NURSE ---
Patient is laying prone at 0350. Patient remains on a Vent mask at 50%. Patient's oxygen saturation is 90-96%.
[2021-07-12 08:04] LABS: Basophils % 0.4 % (0.1-2.0); Eosinophils % 0.2 % (0.1-12.0); Hematocrit 30.3 % (37.0-47.0); Lymphocytes # 1.1 K/mm3 (0.7-4.5); Lymphocytes % 18.1 % (10-50); Mean Corpuscular HGB Conc 29.7 g/dL (31.8-35.4); Mean Corpuscular Hemoglobin 28.2 pg (27.0-31.2); Mean Corpuscular Volume 94.9 fl (81-99); Mean Platelet Volume 9.3 fl (7.4-10.4); Monocytes # 0.4 K/mm3 (0.1-1.0); Neutrophils # 4.6 K/mm3 (1.8-7.8); Neutrophils % 74.3 % (37.0-80.0); Platelet Count 290 K/mm3 (142-424); Red Blood Count 3.19 M/mm3 (4.20-5.40); Red Cell Distribution Width 15.3 % (11.5-17.5); White Blood Count 6.2 K/mm3 (4.8-10.8)
[2021-07-12 08:14] LABS: Alanine Aminotransferase 58 U/L (12-78); Albumin Level 3.5 g/dl (3.5-5.0); Albumin/Globulin Ratio 1.1 (1.1-1.8); Alkaline Phosphatase 46 U/L (38-126); Anion Gap 15.8 mEq/L (5-15); Aspartate Amino Transferase 58 U/L (14-36); Bilirubin,Total 0.2 mg/dl (0.2-1.3); Blood Urea Nitrogen 18 mg/dl (7-17); Calcium 8.3 mg/dl (8.4-10.2); Carbon Dioxide 19 mmol/L (22.0-30.0); Chloride 112 mmol/L (98-107); Creatinine Clearance Estimated 36 mL/min (50-200); Estimated Glomerular Filt Rate 49 ml/min (>60); GFR (African American) 60 ML/MIN (>60); Globulin 3.1 g/dL (1.3-3.2); Glucose 127 mg/dl (74-100); Potassium 4.8 mmoL/L (3.5-5.1); Sodium 142 mmol/L (136-145); Total Protein,Serum 6.6 g/dl (6.3-8.2)
--- NOTE | 2021-07-12 08:20 | ECG_ITS ---
APPROVED REPORT Exam: Resting ECG HR:109 bpm ECG Measurements Heart Rate 109 AXES MA 118 P 17 QRSd 64 QRS 7 QT 310 T 40 QTc 417 Conclusion Sinus tachycardia with fusion complexes Nonspecific ST and T wave abnormality Abnormal ECG Electronically signed by : Kamar Rae MD 07/12/2021 20:51:40
[2021-07-12 08:48] LABS: ABG Base Excess -7.8 mmol/L (-2.4-2.3); ABG HCO3 18.2 mmhg (22.0-26.0); ABG Oxygen Saturation 96 % (90-100); ABG PCO2 35.6 mmhg (35.0-45.0); ABG PH 7.33 mmol/L (7.35-7.45); ABG PO2 91.6 mmhg (80-100); ABG TCO2 19.3 mmhg (23-27)
[2021-07-12 08:49] LABS: Allen's Test Acceptable; Oxygen 100 %; Source Right Radial
--- NOTE | 2021-07-12 09:21 | HMH.ACPN2 ---
Internal Medicine - PN: Subj *Date: 07/12/21 *Time: :21 Interval history: Patient has had more shortness of breath overnight. At beginning of shift she was taking supplemental oxygen per NC at 2 L/min. It was titrated up to 3 L and then up to a Venti mask at 50%. CT of the chest was ordered. While in CT pt had more respiratory distress and a rapid response was called. Dr. Mayen responded to the radiology department. Pt refused intubation. Labs and CXR were ordered and she was placed on BiPAP and brought back to her room. Exam Vital signs and Labs for Last 24 Hours: Temp Pulse Resp BP Pulse Ox 98.6 F 104 H 28 H 170/67 H 94 L 07/12/21 00:00 07/12/21 04:00 07/12/21 04:00 07/12/21 04:00 07/12/21 04:00 Laboratory Results - last 24 hr 07/12/21 07:45: WBC 6.2, RBC 3.19 L, Hgb 9.0 L, Hct 30.3 L, MCV 94.9, MCH 28.2, MCHC 29.7 L, RDW 15.3, Plt Count 290, MPV 9.3, Neut % (Auto) 74.3, Lymph % (Auto) 18.1, [place] % (Auto) 7.0, Eos % (Auto) 0.2, Baso % (Auto) 0.4, Neut # (Auto) 4.6, Lymph # (Auto) 1.1, [place] # (Auto) 0.4, Eos # (Auto) 0.0, Baso # (Auto) 0.0 07/12/21 07:45: Sodium 142, Potassium 4.8, Chloride 112 H, Carbon Dioxide 19 L, Anion Gap 15.8 H, BUN 18 H, Creatinine 1.10 H, Estimated Creat Clear 36, Estimated GFR 49 L, Est GFR ( Amer) 60, Glucose 127 H, Calcium 8.3 L, Total Bilirubin 0.2, AST 58 H, ALT 58, Alkaline Phosphatase 46, Total Protein 6.6, Albumin 3.5, Globulin 3.1, Albumin/Globulin Ratio 1.1 07/12/21 08:46: Specimen Source Right radial, O2 % 100, ABG pH 7.33 L, ABG pCO2 35.6, ABG pO2 91.6, ABG HCO3 18.2 L, ABG Total CO2 19.3 L, ABG O2 Saturation 96, ABG Base Excess -7.8 L, Danyel Test Acceptable Vital Signs - 24 hr 07/11/21 11:46 07/11/21 15:48 07/11/21 20:00 Temperature 99.0 F 101.2 F H 98.7 F Pulse Rate [Left] 89 100 H 97 H Respiratory Rate 21 24 20 Blood Pressure [Left Arm] 154/72 H 132/82 135/67 02 Sat by Pulse Oximetry 98 97 90 L 07/12/21 00:00 07/12/21 01:50 07/12/21 04:00 Temperature 98.6 F Pulse Rate [Left] 106 H 104 H Respiratory Rate 30 H 30 H 28 H Blood Pressure [Left Arm] 139/83 170/67 H 02 Sat by Pulse Oximetry 90 L 94 L 94 L I & O for Last 24 hours: Intake & Output 07/09/21 07/10/21 07/11/21 07/12/21 23:59 23:59 23:59 23:59 Intake Total 600 / 600 3122 / 3122 Balance 600 / 600 3122 / 3122 Weight 225 lb 233 lb 7 oz Microbiology Reports for the Last 24 Hours: Microbiology 07/11/21 06:07 Sputum - Expectorated Sputum Gram Stain - Final 07/11/21 06:07 Sputum - Expectorated Sputum Sputum Culture - Preliminary 07/10/21 05:31 Blood Blood Culture - Preliminary NO GROWTH AFTER 48 HOURS 07/10/21 05:31 Blood Blood Culture - Preliminary NO GROWTH AFTER 48 HOURS - Constitutional Comments: Respiratory distress, BiPAP mask in place - *Routine HEENT Exam Head: Present: normocephalic Eye: Present: EOMI, PERRL ENT: Present: mucous membranes moist - *Routine Neck Exam Present: supple. Absent: lymphadenopathy - *Routine Respiratory Exam Present: decreased breath sounds (in the bases), wheezes (few), crackles (more than yesterday) - *Routine Cardiovascular Exam Present: RRR, tachycardia - *Routine Abdominal Exam Present: soft, normoactive bowel sounds. Absent: tenderness - *Routine Extremities Exam Absent: cyanosis, clubbing, edema - *Routine Skin Exam Present: warm. Absent: rash - *Routine Neurological Exam Present: alert Assessment and Plan (1) Pneumonia due to COVID-19 virus Status: Acute Category: Medical Code(s): U07.1 - COVID-19; J12.82 - Pneumonia due to coronavirus disease 2019 (2) BEKAH (acute kidney injury) Status: Acute Category: Medical Code(s): N17.9 - Acute kidney failure, unspecified (3) CAD (coronary artery disease) Status: Chronic Qualifiers: Coronary Disease-Associated Artery/Lesion type: [place] artery [place] vs. transplanted
--- NOTE | 2021-07-12 09:54 | XR_ITS ---
PROCEDURE INFORMATION: Exam: XR Chest Exam date and time: 07/12/2021 9:54 AM Age: 70 years old Clinical indication: Shortness of breath; Patient HX: Inpatient rapid response -- SOB trouble breathing and dropping stats -- TECHNIQUE: Imaging protocol: XR of the chest. Views: 1 view. COMPARISON: CR XR CHEST PORTABLE 07/10/2021 5:29 AM FINDINGS: Lungs: Patchy diffuse interstitial and alveolar airspace disease left lung greater than right. Edema and/or pneumonia. Pleural spaces: Unremarkable. No pleural effusion. No pneumothorax. Heart/Mediastinum: cardiomegaly. Bones/joints: Unremarkable. IMPRESSION: Patchy diffuse interstitial and alveolar airspace disease left lung greater than right. Edema and/or pneumonia.
--- NOTE | 2021-07-12 17:09 | PC.NURSE ---
At beginning of shift pt was having severe labored breathing with sats in the 50-60% range and HR in 150's. This RN applied a non rebreather which helped some with 02 saturation, and eventually sats into mid 90's. EKG was obtained and it was sinus tach. Called Dr. Bernal stallion manager and he ordered a CTA and pt to be placed on bipap. This RN did go down to CT with pt and she was unable to tolerate the scan. Pt was very labored breathing and color dusky. Rapid response called and pt had an ABG and CXR as well. BP stable. Dr. gallegos and Amparo came to assess pt and ordered those. Dr. Mak then rounded shortly after pt was brought back to floor and made aware CTA was unable to be obtained. Dr. Mak then ordered a de [place] rosa cath to be placed and 80 IV lasix. Pt has had over 3000 ML u/o since giving lasix per dec. Pt sats 94-97% on non rebreather at this time. Mx continues. Pt afebrile.
[2021-07-13] VITALS (20 sets, daily range): BP systolic 97–161; BP diastolic 54–96; PULSE 62–120; RESP 16–49; TEMP 37.1–39.9; O2SAT 88–98; BMI 42.1
--- NOTE | 2021-07-13 04:06 | PC.NURSE ---
Patient is alert and oriented x4. Patient is noted to have fine crackles throughout her lungs noted. Patient has rested on & off through the night. Patient has had some anxiety during the night and was calmed down with slow deep breathing and RT adjustments to her BiPAP. Patient was able to tolerate drinks of water. Patient's de [place] rosa is draining adequate amounts of urine. Call light within reach, VSS, will continue to monitor.
[2021-07-13 06:58] LABS: Alanine Aminotransferase 49 U/L (12-78); Albumin Level 3.1 g/dl (3.5-5.0); Alkaline Phosphatase 42 U/L (38-126); Anion Gap 9.3 mEq/L (5-15); Aspartate Amino Transferase 63 U/L (14-36); Blood Urea Nitrogen 22 mg/dl (7-17); Carbon Dioxide 25 mmol/L (22.0-30.0); Chloride 109 mmol/L (98-107); Creatinine Clearance Estimated 36 mL/min (50-200); Estimated Glomerular Filt Rate 49 ml/min (>60); GFR (African American) 60 ML/MIN (>60); Glucose 119 mg/dl (74-100); Potassium 4.3 mmoL/L (3.5-5.1); Sodium 139 mmol/L (136-145); Total Protein,Serum 6.1 g/dl (6.3-8.2)
[2021-07-13 06:59] LABS: Bilirubin,Total 0.1 mg/dl (0.2-1.3)
--- NOTE | 2021-07-13 08:16 | HMH.ACPN2 ---
<Roxana Mauricio - Last Filed: 07/13/21 08:48> Internal Medicine - PN: Subj *Date: 07/13/21 *Time: 08:48 Interval history: She requested a drink of water. She also would like something mild to sleep. She states her breathing is about the same. She denies pain. Per nursing: Tolerating sips of water. Has had periods of anxiety and with reassurance resolves. Slept at intervals. Continues with Kidd catheter to bedside drainage. Chest x-ray yesterday revealed revealed patchy diffuse interstitial and alveolar airspace disease in the left lung greater than right. Edema and/or pneumonia. Remains on BiPAP with FiO2 at 80% and respiratory rate set at 20. Her respiratory effort is around 30. A.m. labs reveal sodium of 139 potassium of 4.3. BUN is 22 and creatinine is 1.10. CBC shows white blood cell count of 6200 with a hemoglobin of 9 and hematocrit of 30.3. Patient did diurese well after Lasix yesterday. Weight is down. Blood pressure remains elevated at 155/86. She was febrile this morning with a temp of 101.8 for which she received Tylenol.. Exam Vital signs and Labs for Last 24 Hours: Temp Pulse Resp BP Pulse Ox 101.8 F H 98 H 40 H 155/86 H 96 07/13/21 04:00 07/13/21 04:00 07/13/21 04:00 07/13/21 04:00 07/13/21 06:16 Laboratory Results - last 24 hr 07/12/21 07:45: Sodium 142, Potassium 4.8, Chloride 112 H, Carbon Dioxide 19 L, Anion Gap 15.8 H, BUN 18 H, Creatinine 1.10 H, Estimated Creat Clear 36, Estimated GFR 49 L, Est GFR ( Amer) 60, Glucose 127 H, Calcium 8.3 L, Total Bilirubin 0.2, AST 58 H, ALT 58, Alkaline Phosphatase 46, Total Protein 6.6, Albumin 3.5, Globulin 3.1, Albumin/Globulin Ratio 1.1 07/12/21 08:46: Specimen Source Right radial, O2 % 100, ABG pH 7.33 L, ABG pCO2 35.6, ABG pO2 91.6, ABG HCO3 18.2 L, ABG Total CO2 19.3 L, ABG O2 Saturation 96, ABG Base Excess -7.8 L, Danyel Test Acceptable 07/13/21 06:25: Sodium 139, Potassium 4.3, Chloride 109 H, Carbon Dioxide 25, Anion Gap 9.3, BUN 22 H, Creatinine 1.10 H, Estimated Creat Clear 36, Estimated GFR 49 L, Est GFR ( Amer) 60, Glucose 119 H, Calcium 8.0 L, Total Bilirubin 0.1 L, AST 63 H, ALT 49, Alkaline Phosphatase 42, Total Protein 6.1 L, Albumin 3.1 L D, Globulin 3.0, Albumin/Globulin Ratio 1.0 L I & O for Last 24 hours: Intake & Output 07/10/21 07/11/21 07/12/21 07/13/21 11:59 11:59 11:59 11:59 Intake Total 2872 / 2872 850 / 850 100 / 100 Output Total 4025 / 4025 Balance 2872 / 2872 850 / 850 -3925 / -3925 Weight 225 lb 233 lb 7 oz 229 lb Microbiology Reports for the Last 24 Hours: Microbiology 07/11/21 06:07 Sputum - Expectorated Sputum Gram Stain - Final 07/11/21 06:07 Sputum - Expectorated Sputum Sputum Culture - Final Normal Respiratory Leanne 07/10/21 05:31 Blood Blood Culture - Preliminary NO GROWTH AFTER 48 HOURS 07/10/21 05:31 Blood Blood Culture - Preliminary NO GROWTH AFTER 48 HOURS - Constitutional mild distress Comments: Dyspneic whenever BiPAP removed for drink of water - *Routine Respiratory Exam Present: accessory muscle use, CTA bilaterally (Anteriorly) - *Routine Cardiovascular Exam Present: RRR - *Routine Abdominal Exam Present: soft, normoactive bowel sounds, obese Comments: Kidd catheter to bedside drainage. - *Routine Extremities Exam Absent: edema, calf tenderness - *Routine Neurological Exam Present: alert, oriented X3 Assessment and Plan (1) Pneumonia due to COVID-19 virus Status: Acute Category: Medical Code(s): U07.1 - COVID-19; J12.82 - Pneumonia due to coronavirus disease 2019 (2) BEKAH (acute kidney injury) Status: Acute Category: Medical Code(s): N17.9 - Acute kidney failure, unspecified (3) CAD (coronary artery disease) Status: Chronic Qualifiers: Coronary Disease-Associated Artery/Lesion type: [place] artery [place] vs. transplanted h
[2021-07-13 09:13] LABS: Basophils % 0.3 % (0.1-2.0); Eosinophils % 0.2 % (0.1-12.0); Hematocrit 28.7 % (37.0-47.0); Hemoglobin 8.7 g/dL (12.2-16.2); Lymphocytes # 1.4 K/mm3 (0.7-4.5); Lymphocytes % 20.8 % (10-50); Mean Corpuscular HGB Conc 30.4 g/dL (31.8-35.4); Mean Corpuscular Hemoglobin 27.8 pg (27.0-31.2); Mean Corpuscular Volume 91.3 fl (81-99); Mean Platelet Volume 9.6 fl (7.4-10.4); Monocytes # 0.3 K/mm3 (0.1-1.0); Monocytes % 5.2 % (1.7-9.3); Neutrophils # 4.8 K/mm3 (1.8-7.8); Neutrophils % 73.5 % (37.0-80.0); Platelet Count 340 K/mm3 (142-424); Red Blood Count 3.14 M/mm3 (4.20-5.40); Red Cell Distribution Width 15.6 % (11.5-17.5); White Blood Count 6.5 K/mm3 (4.8-10.8)
--- NOTE | 2021-07-13 11:00 | PC.NURSE ---
paged provider MD KIRSTY to notify him of tachypnea and tachycardia. Pt requiring increased fio2
--- NOTE | 2021-07-13 11:43 | PC.NURSE ---
patient educated on use of incentive spirometer, but is unable to utilize use due to BiPAP. Patient instructed on proper turn, cough, deep breathe technique. no further orders. Will continue to monitor
--- NOTE | 2021-07-13 11:46 | DIET.NUTRFU ---
Pt currently unable to tolerate PO intake dt continuous BiPAP use, last 4 trays withheld. Previous intakes 50%. She diuresed 4# past 24h. Recommend nutritional supplements as tolerated when pt able to wean from BiPAP.
--- NOTE | 2021-07-13 13:43 | PC.NURSE ---
Patient complaining of shortness of breath; patient desaturates to 60-70's. MD notified, spoke to MD KIRSTY and RT. Fio2 is being increased to 100%. Notified provider of tachypnea and tachycardia. RR in 40's and HR in the 120's. Reminded physician of code status. no further orders, RT to consult MD to see if he would like another ABG after Fio2 adjustment. Will continue to monitor
--- NOTE | 2021-07-13 13:43 | HMH.PULMPN ---
Internal Medicine - PN: Subj *Date: 07/13/21 *Time: 13:43 Interval history: Patient respiratory status continued to worsen over the weekend, patient complains of worsening respiratory distress. Exam - Constitutional Constitutional:: Absent: no acute distress, comfortable - HENMT Exam HENMT: Present: normocephalic, moist mucous membranes - Eye Exam Eyes:: Present: normal appearance both eyes and related structures - Neck Exam Neck:: Present: normal visual inspection - Respiratory Exam Respiratory:: Present: respiratory distress, crackles. Absent: able to speak in complete sentences - Cardiovascular Exam Cardiac:: Present: S1, S2 - GI Exam GI:: Present: soft - Skin Exam Skin: Present: warm - Neurological Exam Neurological: Present: alert, awake, normal cognition - Extremities Exam Extremities: Present: no cyanosis, no clubbing, edema - Psychiatric Exam Psychiatric: Present: anxious Assessment and Plan (1) Pneumonia due to COVID-19 virus Status: Acute Category: Medical Code(s): U07.1 - COVID-19; J12.82 - Pneumonia due to coronavirus disease 2019 (2) BEKAH (acute kidney injury) Status: Acute Category: Medical Code(s): N17.9 - Acute kidney failure, unspecified (3) CAD (coronary artery disease) Status: Chronic Qualifiers: Coronary Disease-Associated Artery/Lesion type: [place] artery [place] vs. transplanted heart: [place] heart Associated angina: without angina Qualified Code(s): I25.10 - Atherosclerotic heart disease of [place] coronary artery without angina pectoris Category: Medical Code(s): I25.10 - Atherosclerotic heart disease of [place] coronary artery without angina pectoris (4) Diastolic dysfunction Status: Chronic Category: Medical Code(s): I51.89 - Other ill-defined heart diseases (5) HLD (hyperlipidemia) Status: Chronic Qualifiers: Hyperlipidemia type: mixed hyperlipidemia Qualified Code(s): E78.2 - Mixed hyperlipidemia Category: Medical Code(s): E78.5 - Hyperlipidemia, unspecified (6) HTN (hypertension) Status: Chronic Qualifiers: Hypertension type: essential hypertension Category: Medical Code(s): I10 - Essential (primary) hypertension (7) Pulmonary hypertension Status: Chronic Category: Medical Code(s): I27.20 - Pulmonary hypertension, unspecified (8) Anemia Status: Acute Category: Medical Code(s): D64.9 - Anemia, unspecified (9) Morbid obesity with BMI of 40.0-44.9, adult Status: Acute Category: Medical Code(s): E66.01 - Morbid (severe) obesity due to excess calories; Z68.41 - Body mass index [BMI]40.0-44.9, adult (10) Anxiety Status: Acute Category: Medical Code(s): F41.9 - Anxiety disorder, unspecified - Assessment and plan all Dx Assessment and Plan for all problems:: #COVID-19 pneumonia: #Acute hypoxic respiratory failure: 70-year-old previous smoker asthma COPD overlap syndrome using Symbicort and as needed basis no significant respiratory symptom burden presented to the hospital with worsening respiratory distress and found to be COVID-19 positive and needing oxygen supplementation to maintain her O2 saturation greater level. CRP elevated at 17.3, ESR of 52. Mild increase in creatinine at 1.8. D-dimer elevated 0.75. Lower extremity Doppler negative for DVT. Patient respiratory status continued to worsen throughout this hospital admission recommends increase from nasal cannula to noninvasive ventilation to maintain her saturations at 90% and above. Chest x-ray from yesterday showed significantly worsening bilateral pulmonary infiltrates compared her x-ray 48 hours prior during admission. Blood cultures no growth 48 hours, sputum showing normal respiratory leona. No evidence of leukocytosis. Tthis atient is rapidly worsening clinical status and worsening pulmonary infiltrates i s concerning for flash pulmonary edema or acute ARDS at this point of time. We will closely monitor clinical status
--- NOTE | 2021-07-13 13:51 | CA_ITS ---
APPROVED REPORT EXAM: Comprehensive 2D, Doppler, and color-flow Echocardiogram Identifier Horse: Clara Stacy CRT Ht: 5 ft 1 in Wt: 229lbs BSA: 2.00 BP: 155/86 mmHg Indications: Covid, SOB, DD, CAD, CM, GERD, obesity 2D Dimensions LVOT 1.94 cm (M/F) 1.5-2.5 M-Mode Dimensions RVDd 2.37 cm (0.9-2.6) LA Diam 3.35 cm (1.9-4.0) LVDd 3.42 cm (3.5-5.7) Ao Diam 3.67 cm (2.0-3.7) LVDs 2.53 cm (3.5-5.7) IVSd 1.41 cm (0.6-1.1) PWd 1.21 cm (0.6-1.1) EF (Teich) 52.20% FS 26.00% EDV (Teich) 48.10 mL ESV (Teich) 23.00 mL LV Diastology E Decel Time 150.00 (160-240 msec) E/A Ratio 0.55 Aortic Valve AO Peak GR. 14.30 mmHg Mitral Valve MV E Max Nestor. 56.00 (40-130 cm/s) MV A Velocity 101.00 (40-130 cm/s) E/A Ratio 0.55 MV Decel. Time 150.00 (160-240 ms) MV PHT 44.00 ms Tricuspid Valve TR P. Velocity 344.00 cm/s RAP Estimate 10.00 mmHg RVSP 57.30 mmHg Left Ventricle Technically very difficult study because of the patient factors and poor acoustic windows. Valvular structures and endocardial surfaces are very poorly visualized. Left atrium is mildly enlarged, left ventricle is normal size, mild concentric left ventricular hypertrophy, visually estimated ejection fraction is probably 50%, there is no obvious segmental wall motion abnormality in the visualized surfaces. Diastolic parameters are inconclusive. Right Ventricle Right atrium and right ventricle mildly enlarged with normal contractility. Aortic Valve Aortic valve is thickened and calcified without Doppler evidence of aortic stenosis or aortic insufficiency. Mitral Valve Mitral valve grossly normal. There is mild mitral regurgitation. Tricuspid Valve Tricuspid valve grossly normal, there is mild tricuspid regurgitation, tricuspid regurgitation jet velocity is inadequate for calculation of the right ventricular systolic pressure. Pulmonic Valve Pulmonic valve is poorly visualized. Great Vessels Aortic root is normal size. Inferior vena cava is poorly visualized. Pericardium No significant pericardial effusion noted. Conclusion 1. Technically very difficult study because of the patient factors and poor acoustic windows. Probably preserved left ventricular systolic function, visually estimated ejection fraction 50% with no obvious regional wall motion abnormality in the visualized segments. Diastolic parameters are inconclusive. 2. Right-sided chambers are poorly visualized, right ventricle appears to be mildly enlarged with normal contractility. 3. Mild mitral and tricuspid regurgitation. 4. No significant pericardial effusion noted. Electronically signed by : Mariano Santana MD 07/14/2021 06:26:09
--- NOTE | 2021-07-13 13:51 | XR_ITS ---
PROCEDURE: XR CHEST PORTABLE CLINICAL HISTORY: pnm Covid19 COMPARISON: CR XR CHEST PORTABLE from 05/22/2020 CR XR CHEST PORTABLE from 07/10/2021 CR XR CHEST PORTABLE from 07/12/2021 FINDINGS: The cardiomediastinal silhouette and pulmonary vascularity are within normal limits. Consolidation noted in the mid lower lung zones on both sides consistent with bilateral pneumonia with a mixed response appearing slightly improved in the left upper lobe but worse in the right lower lobe. No evidence of pneumothorax or pneumomediastinum. No acute bony abnormalities. IMPRESSION: Bilateral pneumonia which appears worse in the right lower lobe but slightly better in the left upper lobe Dictated by: Danyel Rosales MD 07/13/2021 14:26 Danyel Rosales MD in OV 07/13/2021 14:26
--- NOTE | 2021-07-13 15:36 | HMH.ACPN2 ---
Internal Medicine - PN: Subj *Date: 07/13/21 *Time: 15:36 Interval history: Called to rapid response due to worsening respiratory status. Evidently, earlier this afternoon, patient told two respiratory therapist that she wanted to be intubated if her condition necessitated it. After that conversation, patient was given IV Ativan due to respiratory distress. I discussed case with the two respiratory therapist and with Dr. Bullock. Plans will be to intubate patient if needed and keep her DNR. Plan to reassess her wishes at which time she is not sedated. Exam Vital signs and Labs for Last 24 Hours: Temp Pulse Resp BP Pulse Ox 99.5 F 119 H 49 H 161/96 H 98 07/13/21 12:00 07/13/21 13:40 07/13/21 12:00 07/13/21 12:00 07/13/21 12:00 Laboratory Results - last 24 hr 07/13/21 06:25: Sodium 139, Potassium 4.3, Chloride 109 H, Carbon Dioxide 25, Anion Gap 9.3, BUN 22 H, Creatinine 1.10 H, Estimated Creat Clear 36, Estimated GFR 49 L, Est GFR ( Amer) 60, Glucose 119 H, Calcium 8.0 L, Total Bilirubin 0.1 L, AST 63 H, ALT 49, Alkaline Phosphatase 42, Total Protein 6.1 L, Albumin 3.1 L D, Globulin 3.0, Albumin/Globulin Ratio 1.0 L 07/13/21 06:25: WBC 6.5, RBC 3.14 L, Hgb 8.7 L, Hct 28.7 L, MCV 91.3, MCH 27.8, MCHC 30.4 L, RDW 15.6, Plt Count 340, MPV 9.6, Neut % (Auto) 73.5, Lymph % (Auto) 20.8, [place] % (Auto) 5.2, Eos % (Auto) 0.2, Baso % (Auto) 0.3, Neut # (Auto) 4.8, Lymph # (Auto) 1.4, [place] # (Auto) 0.3, Eos # (Auto) 0.0, Baso # (Auto) 0.0 I & O for Last 24 hours: Intake & Output 09/24/21 09/25/21 09/26/21 09/27/21 23:59 23:59 23:59 23:59 Intake Total 600 / 600 3122 / 3122 100 / 100 360 / 360 Output Total 3000 / 3000 2925 / 2925 Balance 600 / 600 3122 / 3122 -2900 / -2900 -2565 / -2565 Weight 225 lb 233 lb 7 oz 233 lb 11.04 oz 229 lb Microbiology Reports for the Last 24 Hours: Microbiology 07/11/21 06:07 Sputum - Expectorated Sputum Gram Stain - Final 07/11/21 06:07 Sputum - Expectorated Sputum Sputum Culture - Final Normal Respiratory Leanne Assessment and Plan (1) Pneumonia due to COVID-19 virus Status: Acute Category: Medical Code(s): U07.1 - COVID-19; J12.82 - Pneumonia due to coronavirus disease 2019 (2) BEKAH (acute kidney injury) Status: Acute Category: Medical Code(s): N17.9 - Acute kidney failure, unspecified (3) CAD (coronary artery disease) Status: Chronic Qualifiers: Coronary Disease-Associated Artery/Lesion type: [place] artery [place] vs. transplanted heart: [place] heart Associated angina: without angina Qualified Code(s): I25.10 - Atherosclerotic heart disease of [place] coronary artery without angina pectoris Category: Medical Code(s): I25.10 - Atherosclerotic heart disease of [place] coronary artery without angina pectoris (4) Diastolic dysfunction Status: Chronic Category: Medical Code(s): I51.89 - Other ill-defined heart diseases (5) HLD (hyperlipidemia) Status: Chronic Qualifiers: Hyperlipidemia type: mixed hyperlipidemia Qualified Code(s): E78.2 - Mixed hyperlipidemia Category: Medical Code(s): E78.5 - Hyperlipidemia, unspecified (6) HTN (hypertension) Status: Chronic Qualifiers: Hypertension type: essential hypertension Category: Medical Code(s): I10 - Essential (primary) hypertension (7) Pulmonary hypertension Status: Chronic Category: Medical Code(s): I27.20 - Pulmonary hypertension, unspecified (8) Anemia Status: Acute Category: Medical Code(s): D64.9 - Anemia, unspecified (9) Morbid obesity with BMI of 40.0-44.9, adult Status: Acute Category: Medical Code(s): E66.01 - Morbid (severe) obesity due to excess calories; Z68.41 - Body mass index [BMI]40.0-44.9, adult (10) Anxiety Status: Acute Category: Medical Code(s): F41.9 - Anxiety disorder, unspecified
[2021-07-13 15:51] LABS: ABG Base Excess -4.5 mmol/L (-2.4-2.3); ABG HCO3 19.2 mmhg (22.0-26.0); ABG Oxygen Saturation 90 % (90-100); ABG PH 7.47 mmol/L (7.35-7.45); ABG PO2 58.4 mmhg (80-100); Oxygen 100% %
[2021-07-13 15:52] LABS: Source Left Radial; Tidal Volume BIPAP 20/10
--- NOTE | 2021-07-13 16:19 | PC.NURSE ---
15:25 MD Aubree (Primary), MD Kobe (Pulmonology) at bedside to discuss intubation with patient and charted next of kin-- sister Antonette Lim. Antonette verbally stated ad gave consent for the followinf: intubation but status remains DNR. This conversation was witnessed by Nathaly Brock RN.
--- NOTE | 2021-07-13 16:21 | PC.NURSE ---
15:45 MD Richard at bedside to begin rapid sequence intubation (controlled) the following verbal orders were given in sequence: 100 mg of Rocuronium 20 mg of Etomidate both administered IV push by provider. 15:49 Glidoscope utilized for intubation. 7.5 ETT marked 27 at the lip 15:51 Provider verbally ordered propofol drip to be initiated 15:55 patient transported to ICU
--- NOTE | 2021-07-13 16:26 | PC.NURSE ---
RESP CARE NOTE: Pt intubated per Dr Daley. 7.5 ET tube used, and tied at the lip at 28@lip without difficulty.
--- NOTE | 2021-07-13 16:33 | CT_ITS ---
PROCEDURE INFORMATION: Exam: CTA Chest With Contrast Exam date and time: 07/13/2021 4:33 PM Age: 70 years old Clinical indication: Shortness of breath; Patient HX: Hypoxia, covid +, decrease in o2 TECHNIQUE: Imaging protocol: Computed tomographic angiography of the chest with contrast. 3D rendering (Not supervised by radiologist): MIP and/or 3D reconstructed images were created by the technologist. Radiation optimization: All CT scans at this facility use at least one of these dose optimization techniques: automated exposure control; mA and/or kV adjustment per patient size (includes targeted exams where dose is matched to clinical indication); or iterative reconstruction. Contrast material: ISOVUE 370; Contrast volume: 70 ml; Contrast route: INTRAVENOUS (IV); COMPARISON: CR XR CHEST PORTABLE 07/13/2021 5:27 PM FINDINGS: Tubes, catheters and devices: Endotracheal tube is present within the right mainstem pulmonary bronchus. Later chest x-ray images demonstrate the tube was retracted. Pulmonary arteries: No evidence of pulmonary embolism. Aorta: No evidence of aortic dissection. Lungs: Diffuse patchy airspace opacities noted throughout the lungs bilaterally. Commonly reported imaging features of COVID-19 pneumonia are present. Pleural spaces: There is no evidence of pneumothorax. Left pleural effusion. Heart: Unremarkable. No cardiomegaly. No pericardial effusion. Lymph nodes: Unremarkable. No enlarged lymph nodes. Bones/joints: The thoracic spine demonstrates mild degenerative changes at multiple levels. Soft tissues: Unremarkable. IMPRESSION: 1. No evidence of pulmonary embolism. 2. No evidence of aortic dissection. 3. Diffuse patchy airspace opacities noted throughout the lungs bilaterally. 4. Commonly reported imaging features of COVID-19 pneumonia are present. Other processes such as influenza pneumonia and organizing pneumonia, as can be seen with drug toxicity and connective tissue disease, can cause a similar imaging pattern. (Reference: Sina) 5. There is no evidence of pneumothorax. 6. Left pleural effusion. REFERENCES: Sina Schulz, et al., Radiological Society of [place] Expert Consensus Statement on Reporting Chest CT Findings Related to COVID-19. Endorsed by the Society of Thoracic Radiology, the [place] [employer], and RSNA. Published January 09, 2020.
--- NOTE | 2021-07-13 16:35 | XR_ITS ---
PROCEDURE INFORMATION: Exam: XR Chest Exam date and time: 07/13/2021 4:35 PM Age: 70 years old Clinical indication: Device placement; Ett placement (vent status); Additional info: Et tube placement TECHNIQUE: Imaging protocol: XR of the chest. Views: 1 view. COMPARISON: CR XR CHEST PORTABLE 07/13/2021 1:55 PM FINDINGS: Tubes, catheters and devices: Endotracheal tube is present with the tip in the right mainstem pulmonary bronchus. Nasogastric tube is in place. Lungs: Diffuse patchy airspace opacities noted throughout the lungs bilaterally. Pleural spaces: There is no evidence of pneumothorax. Heart/Mediastinum: Unremarkable. No cardiomegaly. Bones/joints: The thoracic spine demonstrates mild degenerative changes at multiple levels. IMPRESSION: 1. Endotracheal tube is present with the tip in the right mainstem pulmonary bronchus. This should be retracted. 2. Diffuse patchy airspace opacities noted throughout the lungs bilaterally.
--- NOTE | 2021-07-13 17:15 | HMH.ITSTN ---
CT angio chest ordered. TH and JT went to get patient she was too unstable to bring down sats were dropping to the 70's on oxygen on the ventilator. Nurse called Doctor she said will need to be on hold till then can get patient more stable. She will call if she improves to do the test, on hold for now
--- NOTE | 2021-07-13 17:24 | XR_ITS ---
PROCEDURE INFORMATION: Exam: XR Chest Exam date and time: 07/13/2021 5:24 PM Age: 70 years old Clinical indication: Device placement; Ett placement (vent status); Patient HX: Desaturation; Ett tube pulled back TECHNIQUE: Imaging protocol: XR of the chest. Views: 1 view. COMPARISON: CR XR CHEST PORTABLE 07/13/2021 4:26 PM FINDINGS: Tubes, catheters and devices: Endotracheal tube is present with the tip above the level of the alexis. Nasogastric tube is in place. Lungs: Diffuse patchy airspace opacities noted throughout the lungs bilaterally. Pleural spaces: There is no evidence of pneumothorax. Small bilateral pleural effusions, greater on the left. Heart/Mediastinum: Unremarkable. No cardiomegaly. Diaphragm: Tenting of the left hemidiaphragm present. Bones/joints: Unremarkable. IMPRESSION: 1. Endotracheal tube is present with the tip above the level of the alexis. 2. Diffuse patchy airspace opacities noted throughout the lungs bilaterally. 3. Small bilateral pleural effusions, greater on the left.
[2021-07-13 17:25] LABS: ABG Oxygen Saturation 79 % (90-100); ABG PCO2 29.2 mmhg (35.0-45.0); ABG PH 7.45 mmol/L (7.35-7.45); ABG TCO2 20.9 mmhg (23-27)
[2021-07-13 17:27] LABS: Allen's Test Patient Unable; Oxygen 100 %; PEEP 15; Source Right Radial; Tidal Volume 440; Vent Rate 22
[2021-07-13 17:28] LABS: ABG PO2 43.6 mmhg (80-100)
[2021-07-13 19:50] LABS: Lipase 247 U/L (23-300); Triglycerides 295 mg/dl (30-150)
[2021-07-14] VITALS (36 sets, daily range): BP systolic 104–155; BP diastolic 56–86; PULSE 68–118; RESP 22–34; TEMP 35.6–38.6; O2SAT 86–99; BMI 41.8
--- NOTE | 2021-07-14 06:00 | XR_ITS ---
PROCEDURE INFORMATION: Exam: XR Chest Exam date and time: 07/14/2021 6:00 AM Age: 70 years old Clinical indication: Device placement; Ett placement (vent status); Patient HX: Covid; Additional info: Intubation TECHNIQUE: Imaging protocol: XR of the chest. Views: 1 view. COMPARISON: CR XR CHEST PORTABLE 07/13/2021 5:27 PM FINDINGS: Tubes, catheters and devices: ET tube is seen in the trachea 5 cm from the alexis. Nasogastric tube overlies the stomach. Lungs: Some patchy airspace disease is noted not significantly changed from prior. Pleural spaces: Unremarkable. No pleural effusion. No pneumothorax. Heart/Mediastinum: Unremarkable. No cardiomegaly. Bones/joints: Unremarkable. IMPRESSION: Stable patchy airspace disease
[2021-07-14 07:02] LABS: Basophils # 0.1 K/mm3 (0-0.2); Basophils % 0.9 % (0.1-2.0); Eosinophils % 0.2 % (0.1-12.0); Hematocrit 29.4 % (37.0-47.0); Lymphocytes # 1.9 K/mm3 (0.7-4.5); Lymphocytes % 22.9 % (10-50); Mean Corpuscular HGB Conc 33.8 g/dL (31.8-35.4); Mean Corpuscular Hemoglobin 30.8 pg (27.0-31.2); Mean Corpuscular Volume 91.3 fl (81-99); Mean Platelet Volume 9.3 fl (7.4-10.4); Monocytes # 0.5 K/mm3 (0.1-1.0); Monocytes % 6.3 % (1.7-9.3); Neutrophils # 5.8 K/mm3 (1.8-7.8); Neutrophils % 69.8 % (37.0-80.0); Platelet Count 440 K/mm3 (142-424); Red Blood Count 3.22 M/mm3 (4.20-5.40); Red Cell Distribution Width 15.8 % (11.5-17.5); White Blood Count 8.3 K/mm3 (4.8-10.8)
[2021-07-14 07:30] LABS: ABG Base Excess -4.2 mmol/L (-2.4-2.3); ABG HCO3 20.9 mmhg (22.0-26.0); ABG Oxygen Saturation 82 % (90-100); ABG PH 7.38 mmol/L (7.35-7.45)
[2021-07-14 07:32] LABS: Lactate Arterial 1.9 mmol/L (0.4-2.0)
[2021-07-14 07:33] LABS: Hemoglobin 9.9 g/dL (12.2-16.2)
[2021-07-14 07:41] LABS: Alanine Aminotransferase 45 U/L (12-78); Albumin Level 3.3 g/dl (3.5-5.0); Alkaline Phosphatase 47 U/L (38-126); Anion Gap 15.1 mEq/L (5-15); Aspartate Amino Transferase 86 U/L (14-36); Bilirubin,Total 0.7 mg/dl (0.2-1.3); Blood Urea Nitrogen 21 mg/dl (7-17); Calcium 7.7 mg/dl (8.4-10.2); Carbon Dioxide 21 mmol/L (22.0-30.0); Chloride 102 mmol/L (98-107); Creatinine Clearance Estimated 36 mL/min (50-200); Estimated Glomerular Filt Rate 49 ml/min (>60); GFR (African American) 60 ML/MIN (>60); Globulin 3.3 g/dL (1.3-3.2); Glucose 215 mg/dl (74-100); Potassium 4.1 mmoL/L (3.5-5.1); Sodium 134 mmol/L (136-145); Total Protein,Serum 6.6 g/dl (6.3-8.2)
--- NOTE | 2021-07-14 07:57 | PC.NURSE ---
0000- RR IN 30S AND PEAK PRESSURES ELEVATED; TITRATED FENTANYL TO 60 MCG/HR 0430- TITRATED PROPOFOL TO 90 MCG/KG/MIN; TITRATED LEVOPHED TO 8 MCG/MIN 0530- TITRATED PROPOFOL TO 80 MCG/KG/MIN
--- NOTE | 2021-07-14 08:14 | HMH.ACPN2 ---
<Roxana Mauricio - Last Filed: 07/14/21 08:14> Internal Medicine - PN: Subj *Date: 07/14/21 *Time: 08:14 Interval history: Patient was intubated yesterday p.m. and is now on vent and sedated on fentanyl and propofol. Vent settings are assist control of 22 with FiO2 80% PEEP of 14 and tidal volume of 440. ABGs for this morning are pending. Laboratory data this morning show sodium of 134 and potassium of 4.1 BUN is 21 and creatinine is 1.10. CBC shows a stable hemoglobin at 9.9 hematocrit of 29.4 and white blood cell count of 8300. Patient did diurese after Lasix yesterday and weight has gone from 229?down to 227She also is on a norepinephrine drip. Chest x-ray after intubation show a stable patchy airspace disease. Nurses report no new events during the night. They do report that she desats just with talking to her Exam Vital signs and Labs for Last 24 Hours: Temp Pulse Resp BP Pulse Ox 99.4 F 103 H 22 113/63 91 L 07/14/21 04:00 07/14/21 07:00 07/14/21 06:00 07/14/21 07:00 07/14/21 07:00 Laboratory Results - last 24 hr 07/13/21 06:25: WBC 6.5, RBC 3.14 L, Hgb 8.7 L, Hct 28.7 L, MCV 91.3, MCH 27.8, MCHC 30.4 L, RDW 15.6, Plt Count 340, MPV 9.6, Neut % (Auto) 73.5, Lymph % (Auto) 20.8, [place] % (Auto) 5.2, Eos % (Auto) 0.2, Baso % (Auto) 0.3, Neut # (Auto) 4.8, Lymph # (Auto) 1.4, [place] # (Auto) 0.3, Eos # (Auto) 0.0, Baso # (Auto) 0.0 07/13/21 15:40: Specimen Source Left radial, O2 % 100%, ABG pH 7.47 H, ABG pCO2 27.0 L, ABG pO2 58.4 L, ABG HCO3 19.2 L, ABG Total CO2 20.0 L, ABG O2 Saturation 90, ABG Base Excess -4.5 L, Tidal Volume Bipap 05/0807/13/21 16:30: Specimen Source Right radial, O2 % 100, ABG pH 7.45, ABG pCO2 29.2 L, ABG pO2 43.6 L, ABG HCO3 20.0 L, ABG Total CO2 20.9 L, ABG O2 Saturation 79 L*, ABG Base Excess -4.0 L, Danyel Test Patient unable, Vent Rate 22, Tidal Volume 440, PEEP 15 07/13/21 19:35: Triglycerides 295 H, Lipase 247 07/14/21 05:45: WBC 8.3 D, RBC 3.22 L, Hgb 9.9 L D, Hct 29.4 L, MCV 91.3, MCH 30.8, MCHC 33.8, RDW 15.8, Plt Count 440 H D, MPV 9.3, Neut % (Auto) 69.8, Lymph % (Auto) 22.9, [place] % (Auto) 6.3, Eos % (Auto) 0.2, Baso % (Auto) 0.9, Neut # (Auto) 5.8, Lymph # (Auto) 1.9, [place] # (Auto) 0.5, Eos # (Auto) 0.0, Baso # (Auto) 0.1 07/14/21 05:45: Sodium 134 L, Potassium 4.1, Chloride 102, Carbon Dioxide 21 L, Anion Gap 15.1 H, BUN 21 H, Creatinine 1.10 H, Estimated Creat Clear 36, Estimated GFR 49 L, Est GFR ( Amer) 60, Glucose 215 H D, Calcium 7.7 L, Total Bilirubin 0.7, AST 86 H D, ALT 45, Alkaline Phosphatase 47, Total Protein 6.6, Albumin 3.3 L, Globulin 3.3 H, Albumin/Globulin Ratio 1.0 L I & O for Last 24 hours: Intake & Output 07/11/21 07/12/21 07/13/21 07/14/21 11:59 11:59 11:59 11:59 Intake Total 2872 / 2872 850 / 850 340 / 340 1044 / 1044 Output Total 4025 / 4025 2415 / 2415 Balance 2872 / 2872 850 / 850 -3685 / -3685 -1371 / -1371 Weight 233 lb 7 oz 229 lb 227 lb 8 oz Microbiology Reports for the Last 24 Hours: Microbiology 07/13/21 16:10 Sputum - Endotracheal Tube Aspirate Gram Stain - Final 07/11/21 06:07 Sputum - Expectorated Sputum Gram Stain - Final 07/11/21 06:07 Sputum - Expectorated Sputum Sputum Culture - Final Normal Respiratory Leanne - Constitutional no acute distress Comments: Sedated - *Routine Respiratory Exam Present: CTA bilaterally (Good air movement anteriorly) - *Routine Cardiovascular Exam Present: RRR (Monitor showing sinus rhythm) - *Routine Abdominal Exam Present: normoactive bowel sounds, obese Comments: NG tube in place. Kidd cath to bedside drainage - *Routine Extremities Exam Present: edema (Bilateral leg) - *Routine Neurological Exam Absent: alert (Sedated) Assessment and Plan (1) Pneumonia due to COVID-19 virus Status: Acute Category: Medical Code(s): U07.1 - COVID-19; J12.82 - Pneumonia due to coronavirus disease 2019 (2) BEKAH (acute kidney injury) Sta
[2021-07-14 08:28] LABS: Oxygen 80 %; Tidal Volume 480; Vent Rate 24
[2021-07-14 08:29] LABS: PEEP 18; Source Left Radial
[2021-07-14 08:30] LABS: ABG PO2 47.4 mmhg (80-100)
--- NOTE | 2021-07-14 10:20 | PC.NURSE ---
Pt sister and son at facility at this time. they are requesting pt keys so they may search for living will and other important papers. person to notify and next of kin listed as rao chu. this person was contacted, this was the sister who is currently present at the facility. spoke with CNO who agreed with decision to give keys to pt son and sister. keys given to family at this time.
--- NOTE | 2021-07-14 23:37 | PC.NURSE ---
She continues in contact and airborne precautions. HOB elevated 30 degrees. She is being turned and repositioned q 2 hours. No change in vent settings thus far this shift. Vent settings: AC mode TV 440 PEEP 18 Rate 22 FiO2 100% She has clear oral secretions.
[2021-07-15] VITALS (31 sets, daily range): BP systolic 92–144; BP diastolic 50–78; PULSE 66–83; RESP 19–26; TEMP 36.5–37.1; O2SAT 90–99; BMI 42.3
--- NOTE | 2021-07-15 05:13 | PC.NURSE ---
Lab notified of the need for them to draw blood.
--- NOTE | 2021-07-15 06:00 | XR_ITS ---
PROCEDURE INFORMATION: Exam: XR Chest Exam date and time: 07/15/2021 6:00 AM Age: 70 years old Clinical indication: Device placement; Ett placement (vent status); Patient HX: Covid; Additional info: Intubation TECHNIQUE: Imaging protocol: XR of the chest. Views: 1 view. COMPARISON: CR XR CHEST PORTABLE 07/14/2021 4:53 AM FINDINGS: Tubes, catheters and devices: ET tube and nasogastric tube are in good position. Lungs: Patchy airspace disease is noted bilaterally somewhat more prominent on the right. Pleural spaces: Unremarkable. No pleural effusion. No pneumothorax. Heart/Mediastinum: Unremarkable. No cardiomegaly. Bones/joints: Unremarkable. IMPRESSION: Stable patchy airspace disease.
[2021-07-15 06:53] LABS: Alanine Aminotransferase 46 U/L (12-78); Albumin Level 3.2 g/dl (3.5-5.0); Albumin/Globulin Ratio 0.9 (1.1-1.8); Alkaline Phosphatase 77 U/L (38-126); Anion Gap 16.5 mEq/L (5-15); Aspartate Amino Transferase 104 U/L (14-36); Bilirubin,Total 0.8 mg/dl (0.2-1.3); Blood Urea Nitrogen 19 mg/dl (7-17); Calcium 7.4 mg/dl (8.4-10.2); Carbon Dioxide 19 mmol/L (22.0-30.0); Chloride 104 mmol/L (98-107); Creatinine Clearance Estimated 40 mL/min (50-200); Estimated Glomerular Filt Rate 71 ml/min (>60); GFR (African American) 86 ML/MIN (>60); Globulin 3.6 g/dL (1.3-3.2); Glucose 328 mg/dl (74-100); Potassium 5.5 mmoL/L (3.5-5.1); Sodium 134 mmol/L (136-145); Total Protein,Serum 6.8 g/dl (6.3-8.2)
[2021-07-15 07:33] LABS: Basophils # 0.1 K/mm3 (0-0.2); Basophils % 0.6 % (0.1-2.0); Eosinophils % 0.1 % (0.1-12.0); Hematocrit 29.2 % (37.0-47.0); Lymphocytes # 1.5 K/mm3 (0.7-4.5); Mean Corpuscular HGB Conc 37.8 g/dL (31.8-35.4); Mean Corpuscular Hemoglobin 34.1 pg (27.0-31.2); Mean Corpuscular Volume 90.3 fl (81-99); Mean Platelet Volume 8.6 fl (7.4-10.4); Monocytes # 0.7 K/mm3 (0.1-1.0); Monocytes % 7.3 % (1.7-9.3); Neutrophils # 7.2 K/mm3 (1.8-7.8); Neutrophils % 76.1 % (37.0-80.0); Platelet Count 588 K/mm3 (142-424); Red Blood Count 3.23 M/mm3 (4.20-5.40); Red Cell Distribution Width 14.9 % (11.5-17.5); White Blood Count 9.5 K/mm3 (4.8-10.8)
[2021-07-15 07:39] LABS: ABG Base Excess -7.4 mmol/L (-2.4-2.3); ABG HCO3 19.1 mmhg (22.0-26.0); ABG Oxygen Saturation 98 % (90-100); ABG PO2 139.2 mmhg (80-100); ABG TCO2 20.3 mmhg (23-27)
--- NOTE | 2021-07-15 07:53 | HMH.ACPN2 ---
<Roxana Mauricio - Last Filed: 07/15/21 07:53> Internal Medicine - PN: Subj *Date: 07/15/21 *Time: 07:53 Interval history: Per nursing: Patient has been stable. Patient remains on Levophed, fentanyl, and propofol. She is sedated. She remains on vent with tidal volume of 440 FiO2 4000%, respiratory rate assist-control 22 with 20 of PEEP. ABGs are pending. Laboratory data this a.m. with blood chemistry showing a sodium of 134 potassium of 5.5 BUN is 19 with a creatinine of 0.8. Liver function studies AST is 104 with ALT of 46. Chest x-ray this a.m. reveals stable patchy airspace disease. Exam Vital signs and Labs for Last 24 Hours: Temp Pulse Resp BP Pulse Ox 97.8 F 66 23 117/61 99 07/15/21 05:00 07/15/21 06:51 07/15/21 05:00 07/15/21 06:51 07/15/21 06:51 Laboratory Results - last 24 hr 07/14/21 06:00: Specimen Source Left radial, O2 % 80, ABG pH 7.38, ABG pCO2 36.0, ABG pO2 47.4 L, ABG HCO3 20.9 L, ABG Total CO2 22.0 L, ABG O2 Saturation 82 L*, ABG Base Excess -4.2 L, Danyel Test N/a, Vent Rate 24, Tidal Volume 480, PEEP 18 07/14/21 07:26: ABG Lactate 1.9 07/15/21 06:19: Sodium 134 L, Potassium 5.5 H D, Chloride 104, Carbon Dioxide 19 L, Anion Gap 16.5 H, BUN 19 H, Creatinine 0.80 D, Estimated Creat Clear 40, Estimated GFR 71, Est GFR ( Amer) 86 D, Glucose 328 H, Calcium 7.4 L, Total Bilirubin 0.8, AST 104 H, ALT 46, Alkaline Phosphatase 77, Total Protein 6.8, Albumin 3.2 L, Globulin 3.6 H, Albumin/Globulin Ratio 0.9 L I & O for Last 24 hours: Intake & Output 07/12/21 07/13/21 07/14/21 07/15/21 11:59 11:59 11:59 11:59 Intake Total 850 / 850 340 / 340 1099.599 / 7543.442 7314.344 / 1938.344 Output Total 4025 / 4025 2415 / 2415 1994 Balance 850 / 850 -3685 / -3685 -1315.401 / -1315.401 -56.656 / -56.656 Weight 229 lb 227 lb 8 oz 230 lb 4.8 oz Microbiology Reports for the Last 24 Hours: Microbiology 07/10/21 05:31 Blood Blood Culture - Final NO GROWTH AFTER 5 DAYS 07/10/21 05:31 Blood Blood Culture - Final NO GROWTH AFTER 5 DAYS - Constitutional no acute distress Comments: Sedated - *Routine Respiratory Exam Present: CTA bilaterally (Anteriorly) - *Routine Cardiovascular Exam Present: RRR (Monitor showing sinus rhythm) - *Routine Abdominal Exam Present: normoactive bowel sounds Comments: NG tube clamped. Kidd to bedside drainage. - *Routine Extremities Exam Present: edema (Only trace bilateral lower legs) - *Routine Neurological Exam Absent: alert (Sedated) Assessment and Plan (1) Pneumonia due to COVID-19 virus Status: Acute Category: Medical Code(s): U07.1 - COVID-19; J12.82 - Pneumonia due to coronavirus disease 2019 (2) BEKAH (acute kidney injury) Status: Acute Category: Medical Code(s): N17.9 - Acute kidney failure, unspecified (3) CAD (coronary artery disease) Status: Chronic Qualifiers: Coronary Disease-Associated Artery/Lesion type: [place] artery [place] vs. transplanted heart: [place] heart Associated angina: without angina Qualified Code(s): I25.10 - Atherosclerotic heart disease of [place] coronary artery without angina pectoris Category: Medical Code(s): I25.10 - Atherosclerotic heart disease of [place] coronary artery without angina pectoris (4) Diastolic dysfunction Status: Chronic Category: Medical Code(s): I51.89 - Other ill-defined heart diseases (5) HLD (hyperlipidemia) Status: Chronic Qualifiers: Hyperlipidemia type: mixed hyperlipidemia Qualified Code(s): E78.2 - Mixed hyperlipidemia Category: Medical Code(s): E78.5 - Hyperlipidemia, unspecified (6) HTN (hypertension) Status: Chronic Qualifiers: Hypertension type: essential hypertension Category: Medical Code(s): I10 - Essential (primary) hypertension (7) Pulmonary hypertension Status: Chronic Category: Medical Code(s): I27.20 - Pulmonary hypertensi
[2021-07-15 09:00] LABS: Allen's Test Patient Unable; Lactate Arterial 1.7 mmol/L (0.4-2.0); Oxygen 100 %; PEEP 20; Source Right Radial; Tidal Volume 440; Vent Rate 22
--- NOTE | 2021-07-15 09:08 | HMH.PULMPN ---
Internal Medicine - PN: Subj *Date: 07/15/21 *Time: 17:44 Interval history: No acute respiratory events overnight. Exam - Constitutional Constitutional:: Present: no acute distress, comfortable - HENMT Exam HENMT: Present: normocephalic - Eye Exam Eyes:: Present: normal appearance both eyes and related structures - Neck Exam Neck:: Present: normal visual inspection - Respiratory Exam Respiratory:: Present: respiratory distress, decreased breath sounds, crackles - Cardiovascular Exam Cardiac:: Present: S1, S2 - GI Exam GI:: Present: soft - Skin Exam Skin: Present: warm, no rash - Neurological Exam Neurological: Absent: alert, awake, normal cognition - Extremities Exam Extremities: Present: no cyanosis, no clubbing, edema Assessment and Plan (1) Pneumonia due to COVID-19 virus Status: Acute Category: Medical Code(s): U07.1 - COVID-19; J12.82 - Pneumonia due to coronavirus disease 2019 (2) BEKAH (acute kidney injury) Status: Acute Category: Medical Code(s): N17.9 - Acute kidney failure, unspecified (3) CAD (coronary artery disease) Status: Chronic Qualifiers: Coronary Disease-Associated Artery/Lesion type: [place] artery [place] vs. transplanted heart: [place] heart Associated angina: without angina Qualified Code(s): I25.10 - Atherosclerotic heart disease of [place] coronary artery without angina pectoris Category: Medical Code(s): I25.10 - Atherosclerotic heart disease of [place] coronary artery without angina pectoris (4) Diastolic dysfunction Status: Chronic Category: Medical Code(s): I51.89 - Other ill-defined heart diseases (5) HLD (hyperlipidemia) Status: Chronic Qualifiers: Hyperlipidemia type: mixed hyperlipidemia Qualified Code(s): E78.2 - Mixed hyperlipidemia Category: Medical Code(s): E78.5 - Hyperlipidemia, unspecified (6) HTN (hypertension) Status: Chronic Qualifiers: Hypertension type: essential hypertension Category: Medical Code(s): I10 - Essential (primary) hypertension (7) Pulmonary hypertension Status: Chronic Category: Medical Code(s): I27.20 - Pulmonary hypertension, unspecified (8) Anemia Status: Acute Category: Medical Code(s): D64.9 - Anemia, unspecified (9) Morbid obesity with BMI of 40.0-44.9, adult Status: Acute Category: Medical Code(s): E66.01 - Morbid (severe) obesity due to excess calories; Z68.41 - Body mass index [BMI]40.0-44.9, adult (10) Anxiety Status: Acute Category: Medical Code(s): F41.9 - Anxiety disorder, unspecified - Assessment and plan all Dx Assessment and Plan for all problems:: #COVID-19 pneumonia: #Acute hypoxic respiratory failure: 70-year-old previous smoker asthma COPD overlap syndrome using Symbicort and as needed basis no significant respiratory symptom burden presented to the hospital with worsening respiratory distress and found to be COVID-19 positive and needing oxygen supplementation to maintain her O2 saturation greater level. CRP elevated at 17.3, ESR of 52. Mild increase in creatinine at 1.8. D-dimer elevated 0.75. Lower extremity Doppler negative for DVT. Patient on presentation needing 2 L nasal oxygen supplementation however her respiratory status rapidly declined over the clinical course in the next 2 to 3 days eventually needing noninvasive ventilator support to maintain her saturations. Patient has been a DNR/DNI until 07/13 but she has been refusing intubation despite worsening respiratory status but however on 07/13/2021 patient expressed her wishes to be intubated however wishes to remain DNR. Patient received anxiety for agitation after she expressed her wishes to be intubated. This information was relayed to the patient's family including her sister with current grades patient is on at this point of time. Given her rapidly deteriorating clinical status, impending respiratory failure and her wishes to be intubated we went ahead and procee
--- NOTE | 2021-07-15 11:05 | HMH.ACPN2 ---
Internal Medicine - PN: Subj *Date: 07/15/21 *Time: 11:05 Exam Vital signs and Labs for Last 24 Hours: Temp Pulse Resp BP Pulse Ox 98.5 F 74 20 133/69 97 07/15/21 10:00 07/15/21 10:00 07/15/21 10:00 07/15/21 10:00 07/15/21 10:00 Laboratory Results - last 24 hr 07/15/21 06:19: WBC 9.5, RBC 3.23 L, Hgb 11.0 L, Hct 29.2 L, MCV 90.3, MCH 34.1 H, MCHC 37.8 H, RDW 14.9, Plt Count 588 H D, MPV 8.6, Neut % (Auto) 76.1, Lymph % (Auto) 16.0, [place] % (Auto) 7.3, Eos % (Auto) 0.1, Baso % (Auto) 0.6, Neut # (Auto) 7.2, Lymph # (Auto) 1.5, [place] # (Auto) 0.7, Eos # (Auto) 0.0, Baso # (Auto) 0.1 07/15/21 06:19: Sodium 134 L, Potassium 5.5 H D, Chloride 104, Carbon Dioxide 19 L, Anion Gap 16.5 H, BUN 19 H, Creatinine 0.80 D, Estimated Creat Clear 40, Estimated GFR 71, Est GFR ( Amer) 86 D, Glucose 328 H, Calcium 7.4 L, Total Bilirubin 0.8, AST 104 H, ALT 46, Alkaline Phosphatase 77, Total Protein 6.8, Albumin 3.2 L, Globulin 3.6 H, Albumin/Globulin Ratio 0.9 L 07/15/21 07:33: Specimen Source Right radial, O2 % 100, ABG pH 7.30 L, ABG pCO2 40.0, ABG pO2 139.2 H, ABG HCO3 19.1 L, ABG Total CO2 20.3 L, ABG O2 Saturation 98, ABG Base Excess -7.4 L, Danyel Test Patient unable, ABG Lactate 1.7, Vent Rate 22, Tidal Volume 440, PEEP 20 I & O for Last 24 hours: Intake & Output 07/12/21 07/13/21 07/14/21 07/15/21 23:59 23:59 23:59 23:59 Intake Total 100 / 100 360 / 816 2102.943 / 2102.943 815 / 815 Output Total 3000 / 3000 2965 / 3290 1050 / 1050 1420 / 1420 Balance -2900 / -2900 -2605 / -2474 1052.943 / 1052.943 -605 / -605 Weight 106 kg 101.831 kg 103.192 kg 104.462 kg Microbiology Reports for the Last 24 Hours: Microbiology 07/10/21 05:31 Blood Blood Culture - Final NO GROWTH AFTER 5 DAYS 07/10/21 05:31 Blood Blood Culture - Final NO GROWTH AFTER 5 DAYS Assessment and Plan (1) Pneumonia due to COVID-19 virus Status: Acute Category: Medical Code(s): U07.1 - COVID-19; J12.82 - Pneumonia due to coronavirus disease 2019 (2) BEKAH (acute kidney injury) Status: Acute Category: Medical Code(s): N17.9 - Acute kidney failure, unspecified (3) CAD (coronary artery disease) Status: Chronic Qualifiers: Coronary Disease-Associated Artery/Lesion type: [place] artery [place] vs. transplanted heart: [place] heart Associated angina: without angina Qualified Code(s): I25.10 - Atherosclerotic heart disease of [place] coronary artery without angina pectoris Category: Medical Code(s): I25.10 - Atherosclerotic heart disease of [place] coronary artery without angina pectoris (4) Diastolic dysfunction Status: Chronic Category: Medical Code(s): I51.89 - Other ill-defined heart diseases (5) HLD (hyperlipidemia) Status: Chronic Qualifiers: Hyperlipidemia type: mixed hyperlipidemia Qualified Code(s): E78.2 - Mixed hyperlipidemia Category: Medical Code(s): E78.5 - Hyperlipidemia, unspecified (6) HTN (hypertension) Status: Chronic Qualifiers: Hypertension type: essential hypertension Category: Medical Code(s): I10 - Essential (primary) hypertension (7) Pulmonary hypertension Status: Chronic Category: Medical Code(s): I27.20 - Pulmonary hypertension, unspecified (8) Anemia Status: Acute Category: Medical Code(s): D64.9 - Anemia, unspecified (9) Morbid obesity with BMI of 40.0-44.9, adult Status: Acute Category: Medical Code(s): E66.01 - Morbid (severe) obesity due to excess calories; Z68.41 - Body mass index [BMI]40.0-44.9, adult (10) Anxiety Status: Acute Category: Medical Code(s): F41.9 - Anxiety disorder, unspecified The patient's infection will respond to the chosen ABx?: Yes Is the patient receiving the right drug, dose, and route?: Yes Could a more targeted ABx be ordered?: No
--- NOTE | 2021-07-15 15:02 | DIET.NUTRFU ---
Addendum entered by Leonie Casillas 07/17/21 13:20: Pt's enteral nutrition dc'd dt pt signing form that she does not want nutritional intervention. Recommend IVF. She is receiving ~1000kcal from propofol. Significant increases in BUN-41, K-6, and BG->500 today. Weight down 6#. Pt has not had a BM t/o stay. Will continue to monitor pt's nutritional status. Original Note: Pt intubated and sedated. Nutrition consult to initiate enteral nutrition received. Pt with COVID, inadequate energy intake past week. MAP>60, K high 5.5, stable renal function, BG high without DM- avg. 177 and has increased t/o stay, >300 today. Not receiving IVF. Currently receiving high rate propofol providing significant additional kcal. Will initiate and slow/low rate and advance as propofol is weaned. Recommend initiating continuous tube feeding regimen of Pulmocare at 20ml/h and advancing once by 10ml/h q 8h as tolerated to goal rate of 30ml/h. Water flushes of 190ml q 4h meet additional fluid needs not provided by formula. This regimen provides 1080kcal, 45g protein, 76g cho, 67g fat, and 565ml free water(1700ml total fluids with flushes) Will monitor pt tolerance, meds, fluids, labs to alter regimen as indicated.
--- NOTE | 2021-07-15 18:10 | PC.NURSE ---
Pt is currently sedated and mechanically ventilated. Lungs are diminished t/o. Her de la rosa is to bedside draining clear, yellow urine. Tube feeds initiated per or at 1600. 500 ml bolus of NS administered per order. Levo gtt is currently turned off and pts bp is as documented in intervention.
[2021-07-16] VITALS (34 sets, daily range): BP systolic 98–125; BP diastolic 46–73; PULSE 60–90; RESP 22–27; TEMP 36.6–37.8; O2SAT 80–99; BMI 43.5
--- NOTE | 2021-07-16 06:00 | XR_ITS ---
PROCEDURE INFORMATION: Exam: XR Chest Exam date and time: 07/16/2021 6:00 AM Age: 70 years old Clinical indication: Device placement; Ett placement (vent status); Patient HX: SOA, intubation TECHNIQUE: Imaging protocol: XR of the chest. Views: 1 view. COMPARISON: CR XR CHEST PORTABLE 07/15/2021 4:58 AM FINDINGS: Tubes, catheters and devices: Endotracheal tube remains in place with the tip above the alexis. Nasogastric tube remains in place. Lungs: There continues to be airspace disease in both lungs, right greater than left, unchanged. Pleural spaces: Unremarkable. No pleural effusion. No pneumothorax. Heart/Mediastinum: Unremarkable. No cardiomegaly. Bones/joints: Unremarkable. IMPRESSION: Stable chest.
[2021-07-16 06:13] LABS: Basophils # 0.1 K/mm3 (0-0.2); Basophils % 0.8 % (0.1-2.0); Eosinophils % 0.1 % (0.1-12.0); Hematocrit 26.5 % (37.0-47.0); Lymphocytes # 1.2 K/mm3 (0.7-4.5); Lymphocytes % 13.3 % (10-50); Mean Corpuscular HGB Conc 31.8 g/dL (31.8-35.4); Mean Corpuscular Hemoglobin 29.2 pg (27.0-31.2); Mean Corpuscular Volume 91.7 fl (81-99); Mean Platelet Volume 8.9 fl (7.4-10.4); Monocytes # 0.6 K/mm3 (0.1-1.0); Monocytes % 5.9 % (1.7-9.3); Neutrophils # 7.5 K/mm3 (1.8-7.8); Neutrophils % 79.9 % (37.0-80.0); Platelet Count 564 K/mm3 (142-424); Red Blood Count 2.89 M/mm3 (4.20-5.40); Red Cell Distribution Width 15.3 % (11.5-17.5); White Blood Count 9.4 K/mm3 (4.8-10.8)
[2021-07-16 07:18] LABS: ABG HCO3 20.7 mmhg (22.0-26.0); ABG Oxygen Saturation 93 % (90-100); ABG PH 7.28 mmol/L (7.35-7.45); ABG PO2 74.1 mmhg (80-100); ABG TCO2 22.1 mmhg (23-27)
--- NOTE | 2021-07-16 08:55 | HMH.ACPN2 ---
Internal Medicine - PN: Subj *Date: 07/16/21 *Time: 08:55 Interval history: Tube feedings were started yesterday. Pt still sedated and intubated. Exam Vital signs and Labs for Last 24 Hours: Temp Pulse Resp BP Pulse Ox 99.2 F 90 22 99/58 L 96 07/16/21 06:35 07/16/21 08:00 07/16/21 06:35 07/16/21 06:35 07/16/21 06:35 Laboratory Results - last 24 hr 07/15/21 07:33: Specimen Source Right radial, O2 % 100, ABG pH 7.30 L, ABG pCO2 40.0, ABG pO2 139.2 H, ABG HCO3 19.1 L, ABG Total CO2 20.3 L, ABG O2 Saturation 98, ABG Base Excess -7.4 L, Danyel Test Patient unable, ABG Lactate 1.7, Vent Rate 22, Tidal Volume 440, PEEP 20 07/16/21 05:45: WBC 9.4, RBC 2.89 L, Hct 26.5 L, MCV 91.7, MCH 29.2, MCHC 31.8, RDW 15.3, Plt Count 564 H, MPV 8.9, Neut % (Auto) 79.9, Lymph % (Auto) 13.3, [place] % (Auto) 5.9, Eos % (Auto) 0.1, Baso % (Auto) 0.8, Neut # (Auto) 7.5, Lymph # (Auto) 1.2, [place] # (Auto) 0.6, Eos # (Auto) 0.0, Baso # (Auto) 0.1 07/16/21 06:00: ABG pH 7.28 L, ABG pCO2 45.0, ABG pO2 74.1 L, ABG HCO3 20.7 L, ABG Total CO2 22.1 L, ABG O2 Saturation 93, ABG Base Excess -6.0 L 07/16/21 06:41: ABG Lactate 2.0 Vital Signs - 24 hr 07/15/21 09:00 07/15/21 10:00 07/15/21 11:00 Temperature 98.3 F 98.5 F 98.5 F Pulse Rate 70 Pulse Rate [Apical] 71 74 73 Respiratory Rate 20 20 22 Blood Pressure [Left Arm] 117/70 133/69 139/68 02 Sat by Pulse Oximetry 97 97 98 07/15/21 12:00 07/15/21 13:00 07/15/21 14:00 Temperature 98.2 F 98.3 F 98.6 F Pulse Rate 83 Pulse Rate [Apical] 76 72 76 Respiratory Rate 19 19 20 Blood Pressure [Left Arm] 144/78 H 133/73 118/64 02 Sat by Pulse Oximetry 98 96 93 L 07/15/21 15:00 07/15/21 16:00 07/15/21 17:00 Temperature 98.1 F Pulse Rate 80 Pulse Rate [Apical] 77 78 77 Respiratory Rate 20 22 20 Blood Pressure [Left Arm] 96/57 L 98/62 L 92/55 L 02 Sat by Pulse Oximetry 92 L 93 L 92 L 07/15/21 18:00 07/15/21 18:07 07/15/21 19:00 Temperature 97.7 F Pulse Rate 75 Pulse Rate [Apical] 74 82 Respiratory Rate 22 23 22 Blood Pressure [Left Arm] 104/60 L 97/50 L 02 Sat by Pulse Oximetry 99 99 94 L 07/15/21 19:27 07/15/21 20:00 07/15/21 20:35 Temperature 98.2 F 98.2 F Pulse Rate 70 Pulse Rate [Apical] 78 71 77 Respiratory Rate 26 H 26 H Blood Pressure [Left Arm] 96/55 L 106/63 L 02 Sat by Pulse Oximetry 90 L 96 90 L 07/15/21 21:53 07/15/21 22:24 07/15/21 22:43 Temperature 98.8 F Pulse Rate Pulse Rate [Apical] 72 71 Respiratory Rate 22 22 Blood Pressure [Left Arm] 107/61 L 02 Sat by Pulse Oximetry 96 95 96 07/15/21 22:51 07/16/21 00:00 07/16/21 00:14 Temperature 98.5 F 98.9 F Pulse Rate 60 72 Pulse Rate [Apical] 71 70 Respiratory Rate 22 22 Blood Pressure [Left Arm] 107/60 L 103/62 L 02 Sat by Pulse Oximetry 97 93 L 07/16/21 00:47 07/16/21 00:49 07/16/21 02:00 Temperature 98.7 F 99.2 F Pulse Rate Pulse Rate [Apical] 73 73 70 Respiratory Rate 22 22 Blood Pressure [Left Arm] 110/64 106/63 L 02 Sat by Pulse Oximetry 97 97 97 07/16/21 02:40 07/16/21 03:08 07/16/21 03:42 Temperature 99.1 F Pulse Rate 70 Pulse Rate [Apical] 69 Respiratory Rate 22 22 Blood Pressure [Left Arm] 104/58 L 02 Sat by Pulse Oximetry 97 98 07/16/21 04:00 07/16/21 04:59 07/16/21 06:00 Temperature 98.9 F 98.8 F 99.0 F Pulse Rate Pulse Rate [Apical] 70 80 70 Respiratory Rate 23 22 22 Blood Pressure [Left Arm] 107/62 L 108/65 L 113/63 02 Sat by Pulse Oximetry 97 80 L 98 07/16/21 06:35 07/16/21 08:00 Temperature 99.2 F Pulse Rate 90 Pulse Rate [Apical] 73 Respiratory Rate 22 Blood Pressure [Left Arm] 99/58 L 02 Sat by Pulse Oximetry 96 I & O for Last 24 hours: Intake & Output 07/13/21 07/14/21 07/15/21 07/16/21 23:59 23:59 23:59 23:59 Intake Total 360 / 816 2102.943 / 2102.943 2453 / 2453 899 / 899 Output Total 2965 / 3290 1050 / 1050 2099 700 / 700 Balance -2605 / -2474 1052.943 / 1052.943 353 / 35
--- NOTE | 2021-07-16 09:28 | HMH.PULMPN ---
Internal Medicine - PN: Subj *Date: 07/16/21 *Time: 16:02 Interval history: No acute respiratory events overnight. Exam - HENMT Exam HENMT: Present: normocephalic, atraumatic - Eye Exam Eyes:: Present: normal appearance both eyes and related structures - Neck Exam Neck:: Present: normal visual inspection - Respiratory Exam Respiratory:: Present: respiratory distress, decreased breath sounds, crackles, rales - Cardiovascular Exam Cardiac:: Present: S1, S2 - GI Exam GI:: Present: soft - Neurological Exam Neurological: Absent: alert, awake, normal cognition - Extremities Exam Extremities: Present: no cyanosis, no clubbing, edema Assessment and Plan (1) Pneumonia due to COVID-19 virus Status: Acute Category: Medical Code(s): U07.1 - COVID-19; J12.82 - Pneumonia due to coronavirus disease 2019 (2) BEKAH (acute kidney injury) Status: Acute Category: Medical Code(s): N17.9 - Acute kidney failure, unspecified (3) CAD (coronary artery disease) Status: Chronic Qualifiers: Coronary Disease-Associated Artery/Lesion type: [place] artery [place] vs. transplanted heart: [place] heart Associated angina: without angina Qualified Code(s): I25.10 - Atherosclerotic heart disease of [place] coronary artery without angina pectoris Category: Medical Code(s): I25.10 - Atherosclerotic heart disease of [place] coronary artery without angina pectoris (4) Diastolic dysfunction Status: Chronic Category: Medical Code(s): I51.89 - Other ill-defined heart diseases (5) HLD (hyperlipidemia) Status: Chronic Qualifiers: Hyperlipidemia type: mixed hyperlipidemia Qualified Code(s): E78.2 - Mixed hyperlipidemia Category: Medical Code(s): E78.5 - Hyperlipidemia, unspecified (6) HTN (hypertension) Status: Chronic Qualifiers: Hypertension type: essential hypertension Category: Medical Code(s): I10 - Essential (primary) hypertension (7) Pulmonary hypertension Status: Chronic Category: Medical Code(s): I27.20 - Pulmonary hypertension, unspecified (8) Anemia Status: Acute Category: Medical Code(s): D64.9 - Anemia, unspecified (9) Morbid obesity with BMI of 40.0-44.9, adult Status: Acute Category: Medical Code(s): E66.01 - Morbid (severe) obesity due to excess calories; Z68.41 - Body mass index [BMI]40.0-44.9, adult (10) Anxiety Status: Acute Category: Medical Code(s): F41.9 - Anxiety disorder, unspecified - Assessment and plan all Dx Assessment and Plan for all problems:: #COVID-19 pneumonia: #Acute hypoxic respiratory failure: 70-year-old previous smoker asthma COPD overlap syndrome using Symbicort and as needed basis no significant respiratory symptom burden presented to the hospital with worsening respiratory distress and found to be COVID-19 positive and needing oxygen supplementation to maintain her O2 saturation greater level. CRP elevated at 17.3, ESR of 52. Mild increase in creatinine at 1.8. D-dimer elevated 0.75. Lower extremity Doppler negative for DVT. Patient on presentation needing 2 L nasal oxygen supplementation however her respiratory status rapidly declined over the clinical course in the next 2 to 3 days eventually needing noninvasive ventilator support to maintain her saturations. Patient has been a DNR/DNI until 07/13 but she has been refusing intubation despite worsening respiratory status but however on 07/13/2021 patient expressed her wishes to be intubated however wishes to remain DNR. Patient received anxiety for agitation after she expressed her wishes to be intubated. This information was relayed to the patient's family including her sister. Given her rapidly deteriorating clinical status, impending respiratory failure and her wishes to be intubated we went ahead and proceeded with intubation and mechanical ventilatory support. She remains as a DNR at this point of time. Plan: - Continue mechanical ventilatory support - Cont
[2021-07-16 11:31] LABS: Hemoglobin 8.4 g/dL (12.2-16.2)
--- NOTE | 2021-07-16 11:47 | PC.NURSE ---
Tube feeds dc'd as pt has signed form stating she does not want tube feeds.
--- NOTE | 2021-07-16 17:15 | PC.NURSE ---
Pt is currently sedated and mechanically ventilated. Lungs are diminished throughout. Some crackles noted this am that can no longer be heard. Her de la rosa is to bedside draining clear, yellow urine. She has had a little over 2L out thus far. She has been NSR on telemetry. VSS. Pt's sister has called and was updated on POC.
[2021-07-17] VITALS (30 sets, daily range): BP systolic 100–135; BP diastolic 51–73; PULSE 70–130; RESP 20–28; TEMP 37–38.9; O2SAT 89–99; BMI 42.3
--- NOTE | 2021-07-17 00:40 | PC.NURSE ---
No acute chagnes. NSR on telemetry. HOB elevated 30 degrees. She is being turned and repositioned q 2 hours.
--- NOTE | 2021-07-17 06:00 | XR_ITS ---
PROCEDURE INFORMATION: Exam: XR Chest Exam date and time: 07/17/2021 6:00 AM Age: 70 years old Clinical indication: Condition or disease; Lung condition and disease; Pneumonia; Patient HX: Covid, intubation TECHNIQUE: Imaging protocol: XR of the chest. Views: 1 view. COMPARISON: CR XR CHEST PORTABLE 07/16/2021 5:27 AM FINDINGS: Tubes, catheters and devices: Endotracheal tube noted with the tip above the alexis approximately 3.7 cm. Multiple overlying cardiac leads are present. Lungs: Persistent bilateral lung opacities noted with worsened bilateral aeration. Pleural spaces: Unremarkable. No pleural effusion. No pneumothorax. Heart/Mediastinum: Unremarkable. No cardiomegaly. Bones/joints: Unremarkable. IMPRESSION: 1. Persistent bilateral lung opacities noted with worsened bilateral aeration. 2. Support catheters noted, as above. No pneumothorax.
[2021-07-17 07:11] LABS: Basophils # 0.1 K/mm3 (0-0.2); Basophils % 0.9 % (0.1-2.0); Eosinophils # 0.1 K/mm3 (0.0-0.4); Eosinophils % 0.8 % (0.1-12.0); Hematocrit 26.1 % (37.0-47.0); Hemoglobin 8.3 g/dL (12.2-16.2); Lymphocytes # 1.4 K/mm3 (0.7-4.5); Lymphocytes % 11.2 % (10-50); Mean Corpuscular HGB Conc 31.8 g/dL (31.8-35.4); Mean Corpuscular Hemoglobin 29.6 pg (27.0-31.2); Mean Corpuscular Volume 93.1 fl (81-99); Mean Platelet Volume 9.3 fl (7.4-10.4); Monocytes # 0.6 K/mm3 (0.1-1.0); Monocytes % 4.6 % (1.7-9.3); Neutrophils # 10.3 K/mm3 (1.8-7.8); Neutrophils % 82.6 % (37.0-80.0); Platelet Count 564 K/mm3 (142-424); Red Cell Distribution Width 15.6 % (11.5-17.5); White Blood Count 12.5 K/mm3 (4.8-10.8)
[2021-07-17 07:30] LABS: Chloride 105 mmol/L (98-107); Sodium 134 mmol/L (136-145)
[2021-07-17 07:32] LABS: Alanine Aminotransferase 39 U/L (12-78); Aspartate Amino Transferase 67 U/L (14-36); Blood Urea Nitrogen 41 mg/dl (7-17); Creatinine Clearance Estimated 40 mL/min (50-200); Estimated Glomerular Filt Rate 55 ml/min (>60); GFR (African American) 67 ML/MIN (>60)
[2021-07-17 07:33] LABS: Albumin Level 2.9 g/dl (3.5-5.0); Alkaline Phosphatase 138 U/L (38-126); Bilirubin,Total 0.4 mg/dl (0.2-1.3); Calcium 7.8 mg/dl (8.4-10.2); Carbon Dioxide 21 mmol/L (22.0-30.0); Globulin 2.9 g/dL (1.3-3.2); Total Protein,Serum 5.8 g/dl (6.3-8.2)
[2021-07-17 07:37] LABS: Glucose 603 mg/dl (74-100)
--- NOTE | 2021-07-17 08:00 | PC.NURSE ---
Lab paged RN to report potassium trending to 6.0, glucose reported at 603- Mel[place] paged by RN; please refer to eMAR for orders
--- NOTE | 2021-07-17 08:46 | HMH.ACPN2 ---
Internal Medicine - PN: Subj *Date: 07/17/21 *Time: 08:46 Interval history: Patient had some desaturation episodes early this morning, respiratory therapy had to manually bag patient to elevate sats. Her O2 sats are normal now. Exam Vital signs and Labs for Last 24 Hours: Temp Pulse Resp BP Pulse Ox 99.4 F 79 26 H 114/62 97 07/17/21 06:00 07/17/21 07:00 07/17/21 07:00 07/17/21 07:00 07/17/21 07:00 Laboratory Results - last 24 hr 07/16/21 05:45: Hgb 8.4 L D 07/17/21 07:04: WBC 12.5 H D, RBC 2.80 L, Hgb 8.3 L, Hct 26.1 L, MCV 93.1, MCH 29.6, MCHC 31.8, RDW 15.6, Plt Count 564 H, MPV 9.3, Neut % (Auto) 82.6 H, Lymph % (Auto) 11.2, [place] % (Auto) 4.6, Eos % (Auto) 0.8, Baso % (Auto) 0.9, Neut # (Auto) 10.3 H, Lymph # (Auto) 1.4, [place] # (Auto) 0.6, Eos # (Auto) 0.1, Baso # (Auto) 0.1 07/17/21 07:04: Sodium 134 L, Potassium 6.0 H, Chloride 105, Carbon Dioxide 21 L, Anion Gap 14.0, BUN 41 H D, Creatinine 1.00 D, Estimated Creat Clear 40, Estimated GFR 55 L, Est GFR ( Amer) 67 D, Glucose 603 H*, Calcium 7.8 L, Total Bilirubin 0.4, AST 67 H D, ALT 39, Alkaline Phosphatase 138 H, Total Protein 5.8 L, Albumin 2.9 L, Globulin 2.9, Albumin/Globulin Ratio 1.0 L Vital Signs - 24 hr 07/16/21 09:00 07/16/21 10:00 07/16/21 11:00 Temperature Pulse Rate Pulse Rate [Apical] 80 78 81 Respiratory Rate 26 H 26 H 26 H Blood Pressure [Left Arm] 115/67 108/63 L 112/66 02 Sat by Pulse Oximetry 95 96 97 07/16/21 11:35 07/16/21 12:00 07/16/21 13:00 Temperature 98.5 F Pulse Rate 82 90 Pulse Rate [Apical] 89 74 Respiratory Rate 27 H 24 26 H Blood Pressure [Left Arm] 113/69 108/65 L 02 Sat by Pulse Oximetry 96 93 L 91 L 07/16/21 14:00 07/16/21 14:42 07/16/21 15:00 Temperature Pulse Rate Pulse Rate [Apical] 74 72 Respiratory Rate 26 H 27 H 26 H Blood Pressure [Left Arm] 112/63 109/66 L 02 Sat by Pulse Oximetry 92 L 93 L 92 L 07/16/21 16:00 07/16/21 17:00 07/16/21 17:30 Temperature Pulse Rate 71 70 Pulse Rate [Apical] 73 71 Respiratory Rate 26 H 26 H Blood Pressure [Left Arm] 111/64 106/65 L 02 Sat by Pulse Oximetry 91 L 92 L 07/16/21 18:00 07/16/21 18:47 07/16/21 20:00 Temperature Pulse Rate 70 Pulse Rate [Apical] 80 79 71 Respiratory Rate 26 H 26 H 26 H Blood Pressure [Left Arm] 115/59 L 98/46 L 106/53 L 02 Sat by Pulse Oximetry 94 L 87 L 93 L 07/16/21 21:00 07/16/21 22:00 07/16/21 23:00 Temperature 100.0 F H 98.7 F Pulse Rate Pulse Rate [Apical] 74 73 71 Respiratory Rate 26 H 26 H 26 H Blood Pressure [Left Arm] 103/56 L 110/59 L 104/55 L 02 Sat by Pulse Oximetry 93 L 93 L 93 L 07/16/21 23:16 07/16/21 23:30 07/17/21 00:00 Temperature 99.1 F Pulse Rate 75 80 Pulse Rate [Apical] 71 77 Respiratory Rate 26 H Blood Pressure [Left Arm] 106/51 L 02 Sat by Pulse Oximetry 92 L 89 L 07/17/21 01:00 07/17/21 01:09 07/17/21 02:00 Temperature 98.6 F 98.8 F Pulse Rate Pulse Rate [Apical] 74 72 70 Respiratory Rate 23 26 H Blood Pressure [Left Arm] 100/51 L 110/57 L 02 Sat by Pulse Oximetry 89 L 95 95 07/17/21 03:00 07/17/21 03:49 07/17/21 04:00 Temperature 98.8 F 99.8 F H Pulse Rate 70 Pulse Rate [Apical] 71 70 Respiratory Rate 26 H 26 H Blood Pressure [Left Arm] 107/54 L 108/55 L 02 Sat by Pulse Oximetry 93 L 93 L 07/17/21 05:00 07/17/21 05:45 07/17/21 06:00 Temperature 99.0 F 99.4 F Pulse Rate 74 Pulse Rate [Apical] 70 74 Respiratory Rate 26 H 26 H 26 H Blood Pressure [Left Arm] 109/59 L 132/69 02 Sat by Pulse Oximetry 95 93 L 98 07/17/21 07:00 Temperature Pulse Rate Pulse Rate [Apical] 79 Respiratory Rate 26 H Blood Pressure [Left Arm] 114/62 02 Sat by Pulse Oximetry 97 I & O for Last 24 hours: Intake & Output 07/14/21 07/15/21 07/16/21 07/17/21 23:59 23:59 23:59 23:59 Intake Total 2102.943 / 2102.943 2453 / 2453 1863 / 1863 582 / 582 Output Total 1050 / 1050 2100 / 2100 0363 / 3599 1515
[2021-07-17 09:03] LABS: ABG Base Excess -5.2 mmol/L (-2.4-2.3); ABG HCO3 20.8 mmhg (22.0-26.0); ABG Oxygen Saturation 98 % (90-100); ABG PCO2 40.9 mmhg (35.0-45.0); ABG PH 7.33 mmol/L (7.35-7.45); ABG PO2 118.2 mmhg (80-100); ABG TCO2 22.1 mmhg (23-27)
[2021-07-17 09:19] LABS: Oxygen 100 %; Tidal Volume 440
[2021-07-17 09:20] LABS: Allen's Test ACCEPTABLE; PEEP 16; Source L RADIAL; Vent Rate 26
[2021-07-17 09:21] LABS: Lactate Arterial 2.5 mmol/L (0.4-2.0)
--- NOTE | 2021-07-17 09:30 | PC.NURSE ---
RN reported coffee ground residual to provider; residual left at bedside for provider to see; provider wants to continue to hold tube feeds and continue to check q4 residual checks
[2021-07-17 10:00] LABS: POC Glucose,Bedside 570 (70-110)
--- NOTE | 2021-07-17 10:40 | PC.NURSE ---
1000-FSBS 527. Stat glucose ordered and lab notified for collection. 1040-lab at bedside for stat glucose collection 1125-Critical glucose result 571 received from Tiffani. name and verified. notified. 1130-administer SSI ordered. no further orders.
[2021-07-17 11:20] LABS: Glucose,Random 571 mg/dL (74-100)
--- NOTE | 2021-07-17 11:49 | PC.NURSE ---
Patient presented with desaturation with spo2 in the 70's. RT bedside manually bagging patient; patiernt spo2 successfully increases. Patient repositioned for optimal airway clearance. will continue to monitor
[2021-07-17 12:28] LABS: POC Glucose,Bedside 578 (70-110)
[2021-07-17 13:27] LABS: Glucose,Random 569 mg/dL (74-100)
[2021-07-17 15:22] LABS: POC Glucose,Bedside 546 (70-110)
--- NOTE | 2021-07-17 15:48 | HMH.PULMPN ---
Internal Medicine - PN: Subj *Date: 07/17/21 *Time: 15:48 Interval history: Patient had an episode of desaturation needing manual bagging. She recovered appropriately. Exam - Constitutional Constitutional:: Absent: no acute distress, comfortable - HENMT Exam HENMT: Present: normocephalic - Eye Exam Eyes:: Present: normal appearance both eyes and related structures - Neck Exam Neck:: Present: normal visual inspection - Respiratory Exam Respiratory:: Present: respiratory distress, decreased breath sounds, crackles - Cardiovascular Exam Cardiac:: Present: S1, S2 - GI Exam GI:: Present: soft - Skin Exam Skin: Present: warm - Neurological Exam Neurological: Absent: alert, awake, normal cognition - Extremities Exam Extremities: Present: no cyanosis, edema Assessment and Plan (1) Pneumonia due to COVID-19 virus Status: Acute Category: Medical Code(s): U07.1 - COVID-19; J12.82 - Pneumonia due to coronavirus disease 2019 (2) BEKAH (acute kidney injury) Status: Acute Category: Medical Code(s): N17.9 - Acute kidney failure, unspecified (3) CAD (coronary artery disease) Status: Chronic Qualifiers: Coronary Disease-Associated Artery/Lesion type: [place] artery [place] vs. transplanted heart: [place] heart Associated angina: without angina Qualified Code(s): I25.10 - Atherosclerotic heart disease of [place] coronary artery without angina pectoris Category: Medical Code(s): I25.10 - Atherosclerotic heart disease of [place] coronary artery without angina pectoris (4) Diastolic dysfunction Status: Chronic Category: Medical Code(s): I51.89 - Other ill-defined heart diseases (5) HLD (hyperlipidemia) Status: Chronic Qualifiers: Hyperlipidemia type: mixed hyperlipidemia Qualified Code(s): E78.2 - Mixed hyperlipidemia Category: Medical Code(s): E78.5 - Hyperlipidemia, unspecified (6) HTN (hypertension) Status: Chronic Qualifiers: Hypertension type: essential hypertension Category: Medical Code(s): I10 - Essential (primary) hypertension (7) Pulmonary hypertension Status: Chronic Category: Medical Code(s): I27.20 - Pulmonary hypertension, unspecified (8) Anemia Status: Acute Category: Medical Code(s): D64.9 - Anemia, unspecified (9) Morbid obesity with BMI of 40.0-44.9, adult Status: Acute Category: Medical Code(s): E66.01 - Morbid (severe) obesity due to excess calories; Z68.41 - Body mass index [BMI] 40.0-44.9, adult (10) Anxiety Status: Acute Category: Medical Code(s): F41.9 - Anxiety disorder, unspecified (11) Hyperkalemia Status: Acute Category: Medical Code(s): E87.5 - Hyperkalemia (12) Hyperglycemia Status: Acute Category: Medical Code(s): R73.9 - Hyperglycemia, unspecified - Assessment and plan all Dx Assessment and Plan for all problems:: #COVID-19 pneumonia: #Acute hypoxic respiratory failure: 70-year-old previous smoker asthma COPD overlap syndrome using Symbicort and as needed basis no significant respiratory symptom burden presented to the hospital with worsening respiratory distress and found to be COVID-19 positive and needing oxygen supplementation to maintain her O2 saturation greater level. CRP elevated at 17.3, ESR of 52. Mild increase in creatinine at 1.8. D-dimer elevated 0.75. Lower extremity Doppler negative for DVT. Patient on presentation needing 2 L nasal oxygen supplementation however her respiratory status rapidly declined over the clinical course in the next 2 to 3 days eventually needing noninvasive ventilator support to maintain her saturations. Patient has been a DNR/DNI until 07/13 but she has been refusing intubation despite worsening respiratory status but however on 07/13/2021 patient expressed her wishes to be intubated however wishes to remain DNR. Patient received anxiety for agitation after she expressed her wishes to be intubated. This information was relayed to the pat
--- NOTE | 2021-07-17 16:30 | PC.NURSE ---
patient has continually had elevated glucose levels throughout shift; multiple instances of insulin given with little change. Continuing to verify high reading with a STAT glucose serum level. Paged Jerri- insulin drip ordered. will continue to monitor and assess FSBS q1hr as per protocol
--- NOTE | 2021-07-17 16:54 | PC.NURSE ---
Patient is experiencing hematuria, paged on-call provider. Spoke with MD Jerri over hpone, provider gave verbal order for a UA. RN inserted new de la rosa catheter as per protocol. no further orders. will continue to monitor
[2021-07-17 17:16] LABS: POC Glucose,Bedside 537 (70-110)
--- NOTE | 2021-07-17 18:43 | PC.NURSE ---
patient's heart rate is begin to trend in the 110's-120's. This differs from earlier vitals charted where as heart rate was in the 70's. Jerri paged. Patient currently appears to be hemodynamically stable with decreased urine output that still appears to be blood tinged. awaiting UA results; will notify provider of any changes. will continue to monitor no further orders at this time
[2021-07-17 19:06] LABS: POC Glucose,Bedside 434 (70-110)
[2021-07-17 19:25] LABS: Microscopic, Urine URINE MICROSCOPIC (MICROSCOPIC)
[2021-07-17 19:26] LABS: Glucose,Random 471 mg/dL (74-100)
[2021-07-17 19:59] LABS: Appearance,Urine CLOUDY (Clear); Blood, Urine 3+ (Negative); Color,Urine BROWN (Yellow); Glucose,Urine (UA) TRACE (Negative); Ketones,Urine 1+ (Negative); Leukocyte Esterase,Urine 2+ (Negative); Nitrate,Urine POSITIVE (Negative); PH,Urine 6.5 (5.0-8.5); Protein,Urine 3+ (Negative); Specific Gravity, Urine 1.025 (1.005-1.030)
[2021-07-17 20:12] LABS: Bilirubin,Urine Negative (Negative)
[2021-07-17 20:13] LABS: Bacteria,Urine 2+ /lpf; RBC,Urine TNTC #/hpf (0-3); WBC,Urine TNTC #/hpf (0-3)
[2021-07-17 21:07] LABS: POC Glucose,Bedside 327 (70-110)
[2021-07-17 21:53] LABS: POC Glucose,Bedside 232 (70-110)
[2021-07-17 22:39] LABS: Chloride 109 mmol/L (98-107); Potassium 5.3 mmoL/L (3.5-5.1); Sodium 138 mmol/L (136-145)
[2021-07-17 22:42] LABS: Anion Gap 15.3 mEq/L (5-15); Blood Urea Nitrogen 51 mg/dl (7-17); Calcium 7.5 mg/dl (8.4-10.2); Carbon Dioxide 19 mmol/L (22.0-30.0); Creatinine Clearance Estimated 24 mL/min (50-200); Estimated Glomerular Filt Rate 30 ml/min (>60); GFR (African American) 36 ML/MIN (>60); Glucose 200 mg/dl (74-100)
[2021-07-17 22:54] LABS: POC Glucose,Bedside 205 (70-110)
--- NOTE | 2021-07-17 23:16 | PC.NURSE ---
193- md Aubree of glucose levels and updated on pt. condition. 1999- gastric residual 160 ml; thin, dark brown in color 2099- fsbs 327; titrated to 10.9 units/hr per protocol. ns to 125 ml/hr per protocol
[2021-07-18] VITALS (36 sets, daily range): BP systolic 106–132; BP diastolic 48–76; PULSE 58–110; RESP 26–28; TEMP 36.5–39; O2SAT 94–99; BMI 43.3
[2021-07-18 00:35] LABS: POC Glucose,Bedside 164 (70-110)
[2021-07-18 01:59] LABS: POC Glucose,Bedside 135 (70-110)
[2021-07-18 02:27] LABS: Anion Gap 11.5 mEq/L (5-15); Blood Urea Nitrogen 58 mg/dl (7-17); Carbon Dioxide 21 mmol/L (22.0-30.0); Chloride 110 mmol/L (98-107); Creatinine Clearance Estimated 22 mL/min (50-200); Estimated Glomerular Filt Rate 28 ml/min (>60); GFR (African American) 34 ML/MIN (>60); Potassium 5.5 mmoL/L (3.5-5.1); Sodium 137 mmol/L (136-145)
[2021-07-18 02:31] LABS: Calcium 7.3 mg/dl (8.4-10.2); Glucose 112 mg/dl (74-100)
[2021-07-18 03:12] LABS: POC Glucose,Bedside 137 (70-110)
[2021-07-18 04:00] LABS: POC Glucose,Bedside 136 (70-110)
--- NOTE | 2021-07-18 04:15 | PC.NURSE ---
0400- fsbs 136; titrated insulin to 2.75 units/hr per protocol
--- NOTE | 2021-07-18 06:00 | XR_ITS ---
PROCEDURE INFORMATION: Exam: XR Chest Exam date and time: 07/18/2021 6:00 AM Age: 70 years old Clinical indication: Patient HX: Covid unit patient icu- intubation check TECHNIQUE: Imaging protocol: XR of the chest. Views: 1 view. COMPARISON: CR XR CHEST PORTABLE 07/17/2021 5:12 AM FINDINGS: Tubes, catheters and devices: There is an endotracheal tube in place, the tip of which projects 4.8 cm above the alexis. There is a nasogastric tube traversing the esophagus terminating below the left hemidiaphragm. Lungs: Airspace and interstitial opacities in both lungs are unchanged. Pleural spaces: Unremarkable. No pleural effusion. No pneumothorax. Heart/Mediastinum: Unremarkable. No cardiomegaly. Bones/joints: Unremarkable. IMPRESSION: 1. No significant change in multifocal pneumonia. 2. Satisfactory position of endotracheal tube, the tip of which projects 4.8 cm above the alexis.
[2021-07-18 06:05] LABS: POC Glucose,Bedside 177 (70-110)
--- NOTE | 2021-07-18 07:00 | PC.NURSE ---
patient presents with increased gastric residual, coffee ground emesis remains present. Patient connected to continuous low wall suction. Patient still remains oliguric. Provider paged and made aware.
[2021-07-18 07:14] LABS: ABG Base Excess -7.8 mmol/L (-2.4-2.3); ABG HCO3 20.9 mmhg (22.0-26.0); ABG Oxygen Saturation 99 % (90-100); ABG TCO2 22.7 mmhg (23-27)
[2021-07-18 07:27] LABS: Allen's Test acceptable; Oxygen 100 %; PEEP 20; Tidal Volume 440; Vent Rate 26
[2021-07-18 07:28] LABS: ABG PH 7.16 mmol/L (7.35-7.45)
[2021-07-18 07:29] LABS: ABG PCO2 59.8 mmhg (35.0-45.0)
--- NOTE | 2021-07-18 07:37 | PC.NURSE ---
Jerri paged by RN for critical Ph on patient. reported at 7.16. Provider stated he wanted to increase rate to [address] patient on low wall suction to aid in gastric secretions. Provider notified of increased residuals overnight, gastric content still appearing to resemble coffee grounds, brown in color.
[2021-07-18 07:51] LABS: Lactate Arterial 1.8 mmol/L (0.4-2.0)
[2021-07-18 07:52] LABS: Basophils # 0.2 K/mm3 (0-0.2); Basophils % 1.2 % (0.1-2.0); Eosinophils % 0.1 % (0.1-12.0); Hematocrit 22.1 % (37.0-47.0); Lymphocytes % 11.4 % (10-50); Mean Corpuscular HGB Conc 33.1 g/dL (31.8-35.4); Mean Corpuscular Hemoglobin 31.2 pg (27.0-31.2); Mean Corpuscular Volume 94.1 fl (81-99); Mean Platelet Volume 9.6 fl (7.4-10.4); Monocytes # 1.1 K/mm3 (0.1-1.0); Monocytes % 6.3 % (1.7-9.3); Neutrophils # 14.5 K/mm3 (1.8-7.8); Neutrophils % 81.1 % (37.0-80.0); Platelet Count 500 K/mm3 (142-424); Red Blood Count 2.35 M/mm3 (4.20-5.40); Red Cell Distribution Width 15.7 % (11.5-17.5); White Blood Count 17.9 K/mm3 (4.8-10.8)
[2021-07-18 07:54] LABS: MANUAL DIFFERENTIAL MANUAL DIFFERENTIAL (MANUAL DIFF)
[2021-07-18 08:14] LABS: Lymphocytes % 8 % (10-50); Monocytes % 7 % (2-9); Myelocytes % 1 (0-1); Neutrophils % 73 % (42-76); Nucleated Red Blood Cells 5; Platelet Estimate Moderate I; RBC Morphology Normal; Total Cells Counted 100
[2021-07-18 08:15] LABS: Hemoglobin 7.3 g/dL (12.2-16.2)
--- NOTE | 2021-07-18 08:44 | HMH.ACPN2 ---
Internal Medicine - PN: Sinan *Date: 07/18/21 *Time: 08:44 Interval history: Patient has declined over the past 24 hours. She had to be started on an insulin drip to to elevated blood sugar and has maintained elevated temp. Exam Vital signs and Labs for Last 24 Hours: Temp Pulse Resp BP Pulse Ox 101.8 F H 104 H 26 H 126/60 97 07/18/21 07:00 07/18/21 07:00 07/18/21 07:00 07/18/21 07:00 07/18/21 07:00 Laboratory Results - last 24 hr 07/17/21 06:46: Specimen Source L radial, O2 % 100, ABG pH 7.33 L, ABG pCO2 40.9, ABG pO2 118.2 H, ABG HCO3 20.8 L, ABG Total CO2 22.1 L, ABG O2 Saturation 98, ABG Base Excess -5.2 L, Danyel Test Acceptable, ABG Lactate 2.5 H, Vent Rate 26, Tidal Volume 440, PEEP 16 07/17/21 09:53: POC Glucose 570 H* 07/17/21 10:35: Random Glucose 571 H* 07/17/21 12:22: POC Glucose 578 H* 07/17/21 12:46: Random Glucose 569 H* 07/17/21 15:16: POC Glucose 546 H* 07/17/21 17:09: POC Glucose 537 H* 07/17/21 17:51: Urine Color Brown, Urine Appearance Cloudy, Urine pH 6.5, Ur Specific [place] 1.025, Urine Protein 3+, Urine Glucose (UA) Trace, Urine Ketones 1+, Urine Blood 3+, Urine Nitrate Positive, Urine Bilirubin Negative, Urine Urobilinogen 2.0, Ur Leukocyte Esterase 2+ A, Urine RBC Tntc, Urine WBC Tntc, Ur Squamous Epith Cells None, Urine Bacteria 2+ 07/17/21 18:04: Random Glucose 471 H* 07/17/21 18:58: POC Glucose 434 H* 07/17/21 20:10: POC Glucose 327 H* 07/17/21 21:46: POC Glucose 232 H 07/17/21 22:21: Sodium 138, Potassium 5.3 H, Chloride 109 H, Carbon Dioxide 19 L, Anion Gap 15.3 H, BUN 51 H, Creatinine 1.70 H D, Estimated Creat Clear 24, Estimated GFR 30 L, Est GFR ( Amer) 36 L D, Glucose 200 H D, Calcium 7.5 L 07/17/21 22:47: POC Glucose 205 H 07/18/21 00:22: POC Glucose 164 H 07/18/21 01:49: POC Glucose 135 H 07/18/21 02:10: Sodium 137, Potassium 5.5 H, Chloride 110 H, Carbon Dioxide 21 L, Anion Gap 11.5, BUN 58 H, Creatinine 1.80 H, Estimated Creat Clear 22, Estimated GFR 28 L, Est GFR ( Amer) 34 L, Glucose 112 H D, Calcium 7.3 L 07/18/21 03:05: POC Glucose 137 H 07/18/21 03:53: POC Glucose 136 H 07/18/21 05:56: POC Glucose 177 H 07/18/21 06:00: Specimen Source r radial, O2 % 100, ABG pH 7.16 L*, ABG pCO2 59.8 H, ABG pO2 144.0 H, ABG HCO3 20.9 L, ABG Total CO2 22.7 L, ABG O2 Saturation 99, ABG Base Excess -7.8 L, Danyel Test acceptable, Vent Rate 26, Tidal Volume 440, PEEP 20 07/18/21 06:40: WBC 17.9 H D, Corrected WBC 17.0 H, RBC 2.35 L, Hgb 7.3 L D, Hct 22.1 L, MCV 94.1, MCH 31.2, MCHC 33.1, RDW 15.7, Plt Count 500 H, MPV 9.6, Neut % (Auto) 81.1 H, Lymph % (Auto) 11.4, [place] % (Auto) 6.3, Eos % (Auto) 0.1, Baso % (Auto) 1.2, Neut # (Auto) 14.5 H, Lymph # (Auto) 2.0, [place] # (Auto) 1.1 H, Eos # (Auto) 0.0, Baso # (Auto) 0.2, Total Counted 100, Neutrophils % (Manual) 73, Band Neutrophils % 9.0 H, Lymphocytes % (Manual) 8 L, Monocytes % (Manual) 7, Metamyelocytes % 2.0 H, Myelocytes % 1, Nucleated RBCs 5, Platelet Estimate Moderate i, RBC Morphology Normal 07/18/21 07:50: ABG Lactate 1.8 Vital Signs - 24 hr 07/17/21 09:00 07/17/21 10:00 07/17/21 10:15 Temperature 99.7 F H Pulse Rate Pulse Rate [Apical] 73 71 Respiratory Rate 26 H 26 H 26 H Blood Pressure [Left Arm] 117/62 135/73 02 Sat by Pulse Oximetry 97 99 98 07/17/21 11:00 07/17/21 11:15 07/17/21 12:00 Temperature 98.6 F Pulse Rate 77 84 Pulse Rate [Apical] 71 84 Respiratory Rate 26 H 20 Blood Pressure [Left Arm] 127/71 101/62 L 02 Sat by Pulse Oximetry 97 99 07/17/21 13:00 07/17/21 14:00 07/17/21 15:00 Temperature 98.6 F 99.5 F Pulse Rate Pulse Rate [Apical] 80 95 H 87 Respiratory Rate 26 H 28 H 26 H Blood Pressure [Left Arm] 120/62 122/73 132/73 02 Sat by Pulse Oximetry 99 95 98 07/17/21 15:10 07/17/21 16:00 07/17/21 17:37 Temperature 99.9 F H Pulse Rate 97 H 100 H Pulse Rate [Apical] 94 H Respiratory Rate 26 H 26 H 27 H Blood Pressure [Left Arm] 124/67 02 Sat by Pulse Oximetry 99 98 92 L
--- NOTE | 2021-07-18 09:00 | PC.NURSE ---
Patient's Ph was critical of 6.16. Provider paged, ordered PO bicard, due to possible GIB, provider paged again and IV bicarb requested. Please refer to RN concerned with sepsis, discussed with Kobe, Pharmacy to make vancomycin, 1,000 L bolus of LR ordered, blood cultures, protonix drip for possible GIB. Provider aware of output from NG. no further orders at this time. Will continue to monitor
--- NOTE | 2021-07-18 09:21 | HMH.PHACONS ---
- Pharmacy Consult Date: 07/18/21 Time: 09:21 Referring provider: YAHIR Reason for Consult:: VANCOMYCIN DOSING CONSULT Allergies and ADEs:: Allergies Allergy/AdvReac Type Severity Reaction Status Date / Time No Known Allergies Allergy Verified 07/01/21 09:03 Home Medications:: Home Medications Medication Instructions Recorded Confirmed Type Atorvastatin Calcium [Lipitor 20mg 20 mg PO DAILY #30 tab 06/24/18 07/10/21 Rx Tab] alendronate 70 mg tablet 70 mg PO WEEKLY 08/09/19 07/10/21 History aspirin 81 mg tablet,delayed 81 mg PO DAILY 08/09/19 07/10/21 History release furosemide 40 mg tablet 40 mg PO DAILY 08/09/19 07/10/21 History diclofenac sodium 1 % topical gel 4 g TOPICAL QID PRN 30 Days #100 g 05/20/20 07/10/21 Rx colchicine 0.6 mg tablet 0.6 mg PO DAILY PRN 07/10/20 07/10/21 History benazepril 20 mg tablet 20 mg PO DAILY #90 tab 08/26/20 07/10/21 Rx spironolactone 25 mg tablet 25 mg PO MOWEFR tab 10/02/20 07/10/21 History albuterol sulfate 90 mcg/actuation 1 inh INHALATION Q6H PRN 90 Days 06/24/21 07/10/21 Rx aerosol inhaler #8.5 g ipratropium 0.5 mg-albuterol 3 mg 3 ml INHALATION QID PRN 90 Days 07/01/21 07/10/21 Rx (2.5 mg base)/3 mL nebulization #360 ml soln Budesonide/Formoterol Fumarate 2 puff INHALATION BID 07/10/21 07/10/21 History [Budesonide-Formoterol 160-4.5] Omeprazole 40 mg PO DAILY 07/10/21 07/10/21 History bisoproloL fumarate [Bisoprolol 10 mg PO DAILY 07/10/21 07/10/21 History Fumarate] Height: 1.57 m Weight: 106.821 kg Laboratory Results:: Laboratory Results - last 24 hr 07/17/21 06:46: ABG pH 7.33 L, ABG pCO2 40.9, ABG pO2 118.2 H, ABG HCO3 20.8 L, ABG Total CO2 22.1 L, ABG O2 Saturation 98, ABG Base Excess -5.2 L, ABG Lactate 2.5 H 07/17/21 09:53: POC Glucose 570 H* 07/17/21 10:35: Random Glucose 571 H* 07/17/21 12:22: POC Glucose 578 H* 07/17/21 12:46: Random Glucose 569 H* 07/17/21 15:16: POC Glucose 546 H* 07/17/21 17:09: POC Glucose 537 H* 07/17/21 17:51: Urine Color Brown, Urine Appearance Cloudy, Urine pH 6.5, Ur Specific [place] 1.025, Urine Protein 3+, Urine Glucose (UA) Trace, Urine Ketones 1+, Urine Blood 3+, Urine Nitrate Positive, Urine Bilirubin Negative, Urine Urobilinogen 2.0, Ur Leukocyte Esterase 2+ A, Urine RBC Tntc, Urine WBC Tntc, Ur Squamous Epith Cells None, Urine Bacteria 2+ 07/17/21 18:04: Random Glucose 471 H* 07/17/21 18:58: POC Glucose 434 H* 07/17/21 20:10: POC Glucose 327 H* 07/17/21 21:46: POC Glucose 232 H 07/17/21 22:21: Sodium 138, Potassium 5.3 H, Chloride 109 H, Carbon Dioxide 19 L, Anion Gap 15.3 H, BUN 51 H, Creatinine 1.70 H D, Estimated Creat Clear 24, Estimated GFR 30 L, Est GFR ( Amer) 36 L D, Glucose 200 H D, Calcium 7.5 L 07/17/21 22:47: POC Glucose 205 H 07/18/21 00:22: POC Glucose 164 H 07/18/21 01:49: POC Glucose 135 H 07/18/21 02:10: Sodium 137, Potassium 5.5 H, Chloride 110 H, Carbon Dioxide 21 L, Anion Gap 11.5, BUN 58 H, Creatinine 1.80 H, Estimated Creat Clear 22, Estimated GFR 28 L, Est GFR ( Amer) 34 L, Glucose 112 H D, Calcium 7.3 L 07/18/21 03:05: POC Glucose 137 H 07/18/21 03:53: POC Glucose 136 H 07/18/21 05:56: POC Glucose 177 H 07/18/21 06:00: Specimen Source r radial, O2 % 100, ABG pH 7.16 L*, ABG pCO2 59.8 H, ABG pO2 144.0 H, ABG HCO3 20.9 L, ABG Total CO2 22.7 L, ABG O2 Saturation 99, ABG Base Excess -7.8 L, Danyel Test acceptable, Vent Rate 26, Tidal Volume 440, PEEP 20 07/18/21 06:40: WBC 17.9 H D, Corrected WBC 17.0 H, RBC 2.35 L, Hgb 7.3 L D, Hct 22.1 L, MCV 94.1, MCH 31.2, MCHC 33.1, RDW 15.7, Plt Count 500 H, MPV 9.6, Neut % (Auto) 81.1 H, Lymph % (Auto) 11.4, [place] % (Auto) 6.3, Eos % (Auto) 0.1, Baso % (Auto) 1.2, Neut # (Auto) 14.5 H, Lymph # (Auto) 2.0, [place] # (Auto) 1.1 H, Eos # (Auto) 0.0, Baso # (Auto) 0.2, Total Counted 100, Neutrophils % (Manual) 73, Band Neutrophils % 9.0 H, Lymphocytes % (Manual) 8 L, Monocytes % (Manual) 7, Metamyelocytes % 2.0 H, Myelocytes % 1, Nucleated RBCs 5, Platele
[2021-07-18 09:26] LABS: Acetone, Serum (Rapid) None Detected (None Detect)
[2021-07-18 10:13] LABS: Chloride 110 mmol/L (98-107); Sodium 138 mmol/L (136-145)
[2021-07-18 10:14] LABS: Potassium 5.8 mmoL/L (3.5-5.1)
[2021-07-18 10:16] LABS: Alanine Aminotransferase 39 U/L (12-78); Anion Gap 17.8 mEq/L (5-15); Aspartate Amino Transferase 123 U/L (14-36); Blood Urea Nitrogen 64 mg/dl (7-17); Carbon Dioxide 16 mmol/L (22.0-30.0); Creatinine Clearance Estimated 18 mL/min (50-200); Estimated Glomerular Filt Rate 22 ml/min (>60); GFR (African American) 27 ML/MIN (>60)
[2021-07-18 10:17] LABS: Albumin Level 2.4 g/dl (3.5-5.0); Alkaline Phosphatase 125 U/L (38-126); Bilirubin,Total 0.4 mg/dl (0.2-1.3); Calcium 7.1 mg/dl (8.4-10.2); Globulin 2.4 g/dL (1.3-3.2); Glucose 159 mg/dl (74-100); Total Protein,Serum 4.8 g/dl (6.3-8.2)
[2021-07-18 10:47] LABS: POC Glucose,Bedside 199 (70-110)
[2021-07-18 12:28] LABS: POC Glucose,Bedside 215 (70-110)
[2021-07-18 12:58] LABS: ABG HCO3 20.7 mmhg (22.0-26.0); ABG PH 7.28 mmol/L (7.35-7.45); ABG PO2 74.1 mmhg (80-100)
[2021-07-18 12:59] LABS: ABG Base Excess -5.7 mmol/L (-2.4-2.3); ABG Oxygen Saturation 93 % (90-100); ABG TCO2 22.1 mmhg (23-27)
[2021-07-18 14:46] LABS: POC Glucose,Bedside 235 (70-110)
[2021-07-18 16:13] LABS: POC Glucose,Bedside 259 (70-110)
--- NOTE | 2021-07-18 16:31 | PC.NURSE ---
Provider to order one unit of blood to treat NG output and trending h&h
--- NOTE | 2021-07-18 16:43 | PC.NURSE ---
RESPIRATORY CARE NOTE: DECREASED OXYGEN TO 80%, AND DECREASED PEEP TO +18 AT THIS TIME. WE WILL CONTINUE MONITORING PT.
[2021-07-18 17:49] LABS: Chloride 106 mmol/L (98-107)
[2021-07-18 17:50] LABS: Sodium 135 mmol/L (136-145)
[2021-07-18 17:53] LABS: Blood Urea Nitrogen 71 mg/dl (7-17); Calcium 7.1 mg/dl (8.4-10.2); Carbon Dioxide 19 mmol/L (22.0-30.0); Creatinine Clearance Estimated 15 mL/min (50-200); Estimated Glomerular Filt Rate 18 ml/min (>60); GFR (African American) 22 ML/MIN (>60); Glucose 229 mg/dl (74-100)
[2021-07-18 17:54] LABS: Acetone, Serum (Rapid) None Detected (None Detect)
[2021-07-18 17:55] LABS: Anion Gap 16.5 mEq/L (5-15)
[2021-07-18 17:56] LABS: Potassium 6.5 mmoL/L (3.5-5.1)
[2021-07-18 18:27] LABS: POC Glucose,Bedside 272 (70-110)
[2021-07-18 19:41] LABS: POC Glucose,Bedside 260 (70-110)
[2021-07-18 20:16] LABS: POC Glucose,Bedside 245 (70-110)
[2021-07-18 21:08] LABS: POC Glucose,Bedside 245 (70-110)
[2021-07-18 21:46] LABS: Anion Gap 16.1 mEq/L (5-15); Blood Urea Nitrogen 76 mg/dl (7-17); Calcium 7.1 mg/dl (8.4-10.2); Carbon Dioxide 16 mmol/L (22.0-30.0); Chloride 104 mmol/L (98-107); Creatinine Clearance Estimated 16 mL/min (50-200); Estimated Glomerular Filt Rate 19 ml/min (>60); GFR (African American) 23 ML/MIN (>60); Glucose 224 mg/dl (74-100); Sodium 129 mmol/L (136-145)
[2021-07-18 21:49] LABS: Potassium 7.1 mmoL/L (3.5-5.1)
[2021-07-18 22:12] LABS: POC Glucose,Bedside 244 (70-110)
[2021-07-18 23:07] LABS: POC Glucose,Bedside 251 (70-110)
[2021-07-19] VITALS (33 sets, daily range): BP systolic 95–144; BP diastolic 46–73; PULSE 74–102; RESP 26–29; TEMP 37–38.1; O2SAT 90–98; BMI 44.4
[2021-07-19 00:11] LABS: POC Glucose,Bedside 223 (70-110)
[2021-07-19 00:49] LABS: Anion Gap 17.4 mEq/L (5-15); Blood Urea Nitrogen 74 mg/dl (7-17); Calcium 7.3 mg/dl (8.4-10.2); Carbon Dioxide 16 mmol/L (22.0-30.0); Chloride 105 mmol/L (98-107); Creatinine Clearance Estimated 14 mL/min (50-200); Estimated Glomerular Filt Rate 16 ml/min (>60); Glucose 203 mg/dl (74-100); Sodium 132 mmol/L (136-145)
[2021-07-19 00:50] LABS: Potassium 6.4 mmoL/L (3.5-5.1)
[2021-07-19 00:51] LABS: GFR (African American) 19 ML/MIN (>60)
--- NOTE | 2021-07-19 01:14 | PC.NURSE ---
notified of critical labs at 2030 and 0115. New orders received and carried.
--- NOTE | 2021-07-19 06:00 | XR_ITS ---
PROCEDURE INFORMATION: Exam: XR Chest Exam date and time: 07/19/2021 6:00 AM Age: 70 years old Clinical indication: Other: Covid; Additional info: Intubation TECHNIQUE: Imaging protocol: XR of the chest. Views: 1 view. COMPARISON: CR XR CHEST PORTABLE 07/18/2021 6:21 AM FINDINGS: Tubes, catheters and devices: Stable endotracheal and nasogastric tubes. Lungs: Stable patchy bilateral infiltrates with lower lung predominance. Pleural spaces: No definite pleural fluid. Heart/Mediastinum: Unremarkable. No cardiomegaly. Bones/joints: Unremarkable. IMPRESSION: Essentially stable appearance compared to exam from the previous day, with findings above.
[2021-07-19 06:16] LABS: Basophils # 0.2 K/mm3 (0-0.2); Basophils % 0.6 % (0.1-2.0); Hemoglobin 7.8 g/dL (12.2-16.2); Lymphocytes # 2.1 K/mm3 (0.7-4.5); Lymphocytes % 8.5 % (10-50); Mean Corpuscular HGB Conc 31.5 g/dL (31.8-35.4); Mean Corpuscular Volume 95.1 fl (81-99); Mean Platelet Volume 9.9 fl (7.4-10.4); Monocytes # 1.2 K/mm3 (0.1-1.0); Monocytes % 4.7 % (1.7-9.3); Neutrophils # 21.2 K/mm3 (1.8-7.8); Neutrophils % 86.1 % (37.0-80.0); Platelet Count 512 K/mm3 (142-424); Red Blood Count 2.61 M/mm3 (4.20-5.40); Red Cell Distribution Width 16.4 % (11.5-17.5)
[2021-07-19 06:20] LABS: White Blood Count 24.6 K/mm3 (4.8-10.8)
[2021-07-19 06:21] LABS: Hematocrit 24.8 % (37.0-47.0); MANUAL DIFFERENTIAL MANUAL DIFFERENTIAL (MANUAL DIFF)
[2021-07-19 06:33] LABS: Acetone, Serum (Rapid) None Detected (None Detect)
[2021-07-19 07:09] LABS: Chloride 106 mmol/L (98-107); Sodium 134 mmol/L (136-145)
[2021-07-19 07:11] LABS: Blood Urea Nitrogen 72 mg/dl (7-17); Creatinine Clearance Estimated 13 mL/min (50-200); Estimated Glomerular Filt Rate 15 ml/min (>60); GFR (African American) 19 ML/MIN (>60)
[2021-07-19 07:12] LABS: Alanine Aminotransferase 51 U/L (12-78); Albumin Level 2.5 g/dl (3.5-5.0); Albumin/Globulin Ratio 0.9 (1.1-1.8); Alkaline Phosphatase 142 U/L (38-126); Anion Gap 18.4 mEq/L (5-15); Anisocytosis 1+; Aspartate Amino Transferase 150 U/L (14-36); Bilirubin,Total 0.8 mg/dl (0.2-1.3); Carbon Dioxide 16 mmol/L (22.0-30.0); Globulin 2.8 g/dL (1.3-3.2); Hypochromasia 1+; Lymphocytes % 10 % (10-50); Neutrophils % 77 % (42-76); Platelet Estimate Slight Increase; Total Cells Counted 100; Total Protein,Serum 5.3 g/dl (6.3-8.2)
[2021-07-19 07:13] LABS: Calcium 7.1 mg/dl (8.4-10.2); Glucose 258 mg/dl (74-100)
[2021-07-19 07:22] LABS: Potassium 6.4 mmoL/L (3.5-5.1)
[2021-07-19 07:23] LABS: ABG Base Excess -13.9 mmol/L (-2.4-2.3); ABG HCO3 14.9 mmhg (22.0-26.0); ABG Oxygen Saturation 95 % (90-100); ABG PCO2 43.4 mmhg (35.0-45.0); ABG PO2 84.9 mmhg (80-100); ABG TCO2 16.2 mmhg (23-27)
--- NOTE | 2021-07-19 08:00 | PC.NURSE ---
patient continues to exhibit s/s of GIB. NG continues to remain on low wall suction. Patient continues to desaturate upon movement. Patient remains oliguric upon exam with hematuria present. febrile over night and throughout shift. COnsulted provider on whether they would want to set a soft limit on Levo drip, since the patient has a GIB, verbal order from Kobe to not increase concentration above 17/hr.
[2021-07-19 08:10] LABS: Allen's Test Patient Unable; Oxygen 100 %; PEEP 18; Source Right Radial; Tidal Volume 440; Vent Rate 26
[2021-07-19 08:11] LABS: ABG PH 7.15 mmol/L (7.35-7.45)
--- NOTE | 2021-07-19 08:51 | HMH.ACPN2 ---
Internal Medicine - PN: Subj *Date: 07/19/21 *Time: 08:51 Interval history: No new events noted overnight. Patient continues to decline. Exam Vital signs and Labs for Last 24 Hours: Temp Pulse Resp BP Pulse Ox 99.5 F 85 26 H 120/57 L 92 L 07/19/21 07:00 07/19/21 07:00 07/19/21 07:00 07/19/21 07:00 07/19/21 07:00 Laboratory Results - last 24 hr 07/16/21 06:00: ABG pH 7.28 L, ABG pCO2 45.0, ABG pO2 74.1 L, ABG HCO3 20.7 L, ABG Total CO2 22.1 L, ABG O2 Saturation 93, ABG Base Excess -5.7 L 07/18/21 06:40: Sodium 138, Potassium 5.8 H, Chloride 110 H, Carbon Dioxide 16 L, Anion Gap 17.8 H, BUN 64 H, Creatinine 2.20 H D, Estimated Creat Clear 18, Estimated GFR 22 L, Est GFR ( Amer) 27 L D, Glucose 159 H D, Calcium 7.1 L, Total Bilirubin 0.4, AST 123 H D, ALT 39, Alkaline Phosphatase 125, Total Protein 4.8 L, Albumin 2.4 L D, Globulin 2.4, Albumin/Globulin Ratio 1.0 L 07/18/21 06:40: Acetone Level None detected 07/18/21 06:40: Blood Type Confirm A Positive 07/18/21 09:27: Blood Type A Positive, Antibody Screen Negative, Crossmatch ([facility]) See Detail 07/18/21 10:40: POC Glucose 199 H 07/18/21 12:21: POC Glucose 215 H 07/18/21 14:40: POC Glucose 235 H 07/18/21 16:00: Sodium 135 L, Potassium 6.5 H*, Chloride 106, Carbon Dioxide 19 L, Anion Gap 16.5 H, BUN 71 H, Creatinine 2.60 H, Estimated Creat Clear 15, Estimated GFR 18 L*, Est GFR ( Amer) 22 L, Glucose 229 H D, Calcium 7.1 L, Acetone Level None detected 07/18/21 16:05: POC Glucose 259 H 07/18/21 18:20: POC Glucose 272 H 07/18/21 19:33: POC Glucose 260 H 07/18/21 20:08: POC Glucose 245 H 07/18/21 20:30: Sodium 129 L, Potassium 7.1 H*, Chloride 104, Carbon Dioxide 16 L, Anion Gap 16.1 H, BUN 76 H, Creatinine 2.50 H, Estimated Creat Clear 16, Estimated GFR 19 L*, Est GFR ( Amer) 23 L, Glucose 224 H, Calcium 7.1 L 07/18/21 21:02: POC Glucose 245 H 07/18/21 22:05: POC Glucose 244 H 07/18/21 23:01: POC Glucose 251 H 07/18/21 23:59: POC Glucose 223 H 07/19/21 00:18: Sodium 132 L, Potassium 6.4 H*, Chloride 105, Carbon Dioxide 16 L, Anion Gap 17.4 H, BUN 74 H, Creatinine 2.90 H, Estimated Creat Clear 14, Estimated GFR 16 L*, Est GFR ( Amer) 19 L*, Glucose 203 H, Calcium 7.3 L 07/19/21 04:45: Sodium 134 L, Potassium 6.4 H*, Chloride 106, Carbon Dioxide 16 L, Anion Gap 18.4 H, BUN 72 H, Creatinine 3.00 H, Estimated Creat Clear 13, Estimated GFR 15 L*, Est GFR ( Amer) 19 L*, Glucose 258 H D, Calcium 7.1 L, Total Bilirubin 0.8, AST 150 H, ALT 51 D, Alkaline Phosphatase 142 H, Total Protein 5.3 L, Albumin 2.5 L, Globulin 2.8, Albumin/Globulin Ratio 0.9 L 07/19/21 04:45: Acetone Level None detected 07/19/21 04:45: WBC 24.6 H* D, RBC 2.61 L, Hgb 7.8 L, Hct 24.8 L, MCV 95.1, MCH 30.0, MCHC 31.5 L, RDW 16.4, Plt Count 512 H, MPV 9.9, Neut % (Auto) 86.1 H, Lymph % (Auto) 8.5 L, [place] % (Auto) 4.7, Eos % (Auto) 0.0 L, Baso % (Auto) 0.6, Neut # (Auto) 21.2 H, Lymph # (Auto) 2.1, [place] # (Auto) 1.2 H, Eos # (Auto) 0.0, Baso # (Auto) 0.2, Total Counted 100, Neutrophils % (Manual) 77 H, Band Neutrophils % 13.0 H, Lymphocytes % (Manual) 10, Platelet Estimate Slight increase, Hypochromasia 1+, Anisocytosis 1+ 07/19/21 06:00: Specimen Source Right radial, O2 % 100, ABG pH 7.15 L*, ABG pCO2 43.4, ABG pO2 84.9, ABG HCO3 14.9 L, ABG Total CO2 16.2 L, ABG O2 Saturation 95, ABG Base Excess -13.9 L, Danyel Test Patient unable, Vent Rate 26, Tidal Volume 440, PEEP 18 I & O for Last 24 hours: Intake & Output 07/16/21 07/17/21 07/18/21 07/19/21 23:59 23:59 23:59 23:59 Intake Total 1863 / 1863 2290 / 3618 4098 / 4098 2409.272 / 2409.272 Output Total 2899 / 3599 2797 / 2817 1955 / 1958 81 / 81 Balance -1036 / -1736 -507 / 801 2142 / 2139 2328.272 / 2328.272 Weight 236 lb 8 oz 230 lb 4 oz 235 lb 8 oz 241 lb 7 oz Microbiology Reports for the Last 24 Hours: Microbiology 07/17/21 17:51 Urine,Catheterized Urine Culture - Preliminary - Constitutional Comments: sedated, intuba
--- NOTE | 2021-07-19 10:03 | HMH.PHACONS ---
- Pharmacy Consult Date: 07/19/21 Time: 10:03 Referring provider: YAHIR Reason for Consult:: VANCOMYCIN DOSING ADJUSTMENT Allergies and ADEs:: Allergies Allergy/AdvReac Type Severity Reaction Status Date / Time No Known Allergies Allergy Verified 07/01/21 09:03 Home Medications:: Home Medications Medication Instructions Recorded Confirmed Type Atorvastatin Calcium [Lipitor 20mg 20 mg PO DAILY #30 tab 06/24/18 07/10/21 Rx Tab] alendronate 70 mg tablet 70 mg PO WEEKLY 08/09/19 07/10/21 History aspirin 81 mg tablet,delayed 81 mg PO DAILY 08/09/19 07/10/21 History release furosemide 40 mg tablet 40 mg PO DAILY 08/09/19 07/10/21 History diclofenac sodium 1 % topical gel 4 g TOPICAL QID PRN 30 Days #100 g 05/20/20 07/10/21 Rx colchicine 0.6 mg tablet 0.6 mg PO DAILY PRN 07/10/20 07/10/21 History benazepril 20 mg tablet 20 mg PO DAILY #90 tab 08/26/20 07/10/21 Rx spironolactone 25 mg tablet 25 mg PO MOWEFR tab 10/02/20 07/10/21 History albuterol sulfate 90 mcg/actuation 1 inh INHALATION Q6H PRN 90 Days 06/24/21 07/10/21 Rx aerosol inhaler #8.5 g ipratropium 0.5 mg-albuterol 3 mg 3 ml INHALATION QID PRN 90 Days 07/01/21 07/10/21 Rx (2.5 mg base)/3 mL nebulization #360 ml soln Budesonide/Formoterol Fumarate 2 puff INHALATION BID 07/10/21 07/10/21 History [Budesonide-Formoterol 160-4.5] Omeprazole 40 mg PO DAILY 07/10/21 07/10/21 History bisoproloL fumarate [Bisoprolol 10 mg PO DAILY 07/10/21 07/10/21 History Fumarate] Height: 1.57 m Weight: 109.514 kg Laboratory Results:: Laboratory Results - last 24 hr 07/16/21 06:00: ABG pH 7.28 L, ABG pCO2 45.0, ABG pO2 74.1 L, ABG HCO3 20.7 L, ABG Total CO2 22.1 L, ABG O2 Saturation 93, ABG Base Excess -5.7 L 07/18/21 06:40: Sodium 138, Potassium 5.8 H, Chloride 110 H, Carbon Dioxide 16 L, Anion Gap 17.8 H, BUN 64 H, Creatinine 2.20 H D, Estimated Creat Clear 18, Estimated GFR 22 L, Est GFR ( Amer) 27 L D, Glucose 159 H D, Calcium 7.1 L, Total Bilirubin 0.4, AST 123 H D, ALT 39, Alkaline Phosphatase 125, Total Protein 4.8 L, Albumin 2.4 L D, Globulin 2.4, Albumin/Globulin Ratio 1.0 L 07/18/21 06:40: Blood Type Confirm A Positive 07/18/21 09:27: Blood Type A Positive, Antibody Screen Negative, Crossmatch ([facility]) See Detail 07/18/21 10:40: POC Glucose 199 H 07/18/21 12:21: POC Glucose 215 H 07/18/21 14:40: POC Glucose 235 H 07/18/21 16:00: Sodium 135 L, Potassium 6.5 H*, Chloride 106, Carbon Dioxide 19 L, Anion Gap 16.5 H, BUN 71 H, Creatinine 2.60 H, Estimated Creat Clear 15, Estimated GFR 18 L*, Est GFR ( Amer) 22 L, Glucose 229 H D, Calcium 7.1 L, Acetone Level None detected 07/18/21 16:05: POC Glucose 259 H 07/18/21 18:20: POC Glucose 272 H 07/18/21 19:33: POC Glucose 260 H 07/18/21 20:08: POC Glucose 245 H 07/18/21 20:30: Sodium 129 L, Potassium 7.1 H*, Chloride 104, Carbon Dioxide 16 L, Anion Gap 16.1 H, BUN 76 H, Creatinine 2.50 H, Estimated Creat Clear 16, Estimated GFR 19 L*, Est GFR ( Amer) 23 L, Glucose 224 H, Calcium 7.1 L 07/18/21 21:02: POC Glucose 245 H 07/18/21 22:05: POC Glucose 244 H 07/18/21 23:01: POC Glucose 251 H 07/18/21 23:59: POC Glucose 223 H 07/19/21 00:18: Sodium 132 L, Potassium 6.4 H*, Chloride 105, Carbon Dioxide 16 L, Anion Gap 17.4 H, BUN 74 H, Creatinine 2.90 H, Estimated Creat Clear 14, Estimated GFR 16 L*, Est GFR ( Amer) 19 L*, Glucose 203 H, Calcium 7.3 L 07/19/21 04:45: Sodium 134 L, Potassium 6.4 H*, Chloride 106, Carbon Dioxide 16 L, Anion Gap 18.4 H, BUN 72 H, Creatinine 3.00 H, Estimated Creat Clear 13, Estimated GFR 15 L*, Est GFR ( Amer) 19 L*, Glucose 258 H D, Calcium 7.1 L, Total Bilirubin 0.8, AST 150 H, ALT 51 D, Alkaline Phosphatase 142 H, Total Protein 5.3 L, Albumin 2.5 L, Globulin 2.8, Albumin/Globulin Ratio 0.9 L 07/19/21 04:45: Acetone Level None detected 07/19/21 04:45: WBC 24.6 H* D, RBC 2.61 L, Hgb 7.8 L, Hct 24.8 L, MCV 95.1, MCH 30.0, MCHC 31.5 L, RDW 16.4, Plt Count 512 H, MPV 9.9,
--- NOTE | 2021-07-19 19:56 | PC.NURSE ---
patient's family consented to withdraw care the following morning. Jerri paged
[2021-07-20] VITALS (14 sets, daily range): BP systolic 90–105; BP diastolic 41–55; PULSE 84–101; RESP 26; TEMP 37.7–38.8; O2SAT 94–98; BMI 44.7
[2021-07-20 00:42] LABS: POC Glucose,Bedside 164 (70-110)
[2021-07-20 00:42] LABS: POC Glucose,Bedside 261 (70-110)
[2021-07-20 00:42] LABS: POC Glucose,Bedside 128 (70-110)
[2021-07-20 00:42] LABS: POC Glucose,Bedside 110 (70-110)
[2021-07-20 00:42] LABS: POC Glucose,Bedside 223 (70-110)
[2021-07-20 00:42] LABS: POC Glucose,Bedside 191 (70-110)
[2021-07-20 00:42] LABS: POC Glucose,Bedside 170 (70-110)
[2021-07-20 00:42] LABS: POC Glucose,Bedside 116 (70-110)
[2021-07-20 00:42] LABS: POC Glucose,Bedside 194 (70-110)
[2021-07-20 00:42] LABS: POC Glucose,Bedside 183 (70-110)
[2021-07-20 00:42] LABS: POC Glucose,Bedside 209 (70-110)
[2021-07-20 05:21] LABS: POC Glucose,Bedside 215 (70-110)
[2021-07-20 05:21] LABS: POC Glucose,Bedside 247 (70-110)
[2021-07-20 06:12] LABS: Basophils # 0.3 K/mm3 (0-0.2); Basophils % 1.3 % (0.1-2.0); Eosinophils # 0.1 K/mm3 (0.0-0.4); Eosinophils % 0.3 % (0.1-12.0); Hematocrit 22.8 % (37.0-47.0); Hemoglobin 7.2 g/dL (12.2-16.2); Lymphocytes # 1.8 K/mm3 (0.7-4.5); Lymphocytes % 7.2 % (10-50); Mean Corpuscular HGB Conc 31.5 g/dL (31.8-35.4); Mean Corpuscular Hemoglobin 29.2 pg (27.0-31.2); Mean Corpuscular Volume 92.5 fl (81-99); Mean Platelet Volume 9.4 fl (7.4-10.4); Monocytes # 1.1 K/mm3 (0.1-1.0); Monocytes % 4.4 % (1.7-9.3); Neutrophils # 21.7 K/mm3 (1.8-7.8); Neutrophils % 86.8 % (37.0-80.0); Platelet Count 511 K/mm3 (142-424); Red Blood Count 2.47 M/mm3 (4.20-5.40); Red Cell Distribution Width 17.1 % (11.5-17.5)
[2021-07-20 06:17] LABS: MANUAL DIFFERENTIAL MANUAL DIFFERENTIAL (MANUAL DIFF)
[2021-07-20 06:23] LABS: Alanine Aminotransferase 64 U/L (12-78); Albumin Level 2.6 g/dl (3.5-5.0); Albumin/Globulin Ratio 0.8 (1.1-1.8); Alkaline Phosphatase 160 U/L (38-126); Anion Gap 23.5 mEq/L (5-15); Aspartate Amino Transferase 172 U/L (14-36); Bilirubin,Total 1.1 mg/dl (0.2-1.3); Calcium 6.7 mg/dl (8.4-10.2); Carbon Dioxide 13 mmol/L (22.0-30.0); Chloride 102 mmol/L (98-107); Globulin 3.1 g/dL (1.3-3.2); Glucose 181 mg/dl (74-100); Sodium 132 mmol/L (136-145); Total Protein,Serum 5.7 g/dl (6.3-8.2)
[2021-07-20 06:29] LABS: Creatinine Clearance Estimated 10 mL/min (50-200); Estimated Glomerular Filt Rate 11 ml/min (>60); GFR (African American) 13 ML/MIN (>60)
[2021-07-20 06:39] LABS: Blood Urea Nitrogen 82 mg/dl (7-17); Potassium 6.5 mmoL/L (3.5-5.1)
[2021-07-20 07:14] LABS: Corrected White Blood Count 23.6 K/mm3 (4.8-10.8); Eosinophils % 1 % (0-3); Lymphocytes % 8 % (10-50); Monocytes % 1 % (2-9); Neutrophils % 89 % (42-76); Nucleated Red Blood Cells 6; Total Cells Counted 100
[2021-07-20 07:15] LABS: Macrocytosis 1+; Platelet Estimate Normal
[2021-07-20 07:16] LABS: Anisocytosis 1+; Hypochromasia 2+; Tear Drop Cells 1+
--- NOTE | 2021-07-20 07:59 | PC.NURSE ---
RN called [facility] at 07:59 this morning to notify of possibility of terminal extubation this AM. Spoke with [facility] REP Fariha Dias
--- NOTE | 2021-07-20 08:29 | PC.NURSE ---
Patient is being placed on comfort care only per verbal order from MD Aubree
--- NOTE | 2021-07-20 08:39 | HMH.ACPN2 ---
Internal Medicine - PN: Subj *Date: 07/20/21 *Time: 08:39 Interval history: Patient continues to decline. BP dropped overnight and Levophed was resumed and is at maximum dose now, patient has some dark, bloody discharge from nose and mouth now. Exam Vital signs and Labs for Last 24 Hours: Temp Pulse Resp BP Pulse Ox 100.1 F H 97 H 26 H 95/45 L 96 07/20/21 06:00 07/20/21 06:45 07/20/21 06:45 07/20/21 06:45 07/20/21 06:45 Laboratory Results - last 24 hr 07/19/21 01:12: POC Glucose 223 H 07/19/21 01:59: POC Glucose 209 H 07/19/21 03:12: POC Glucose 191 H 07/19/21 04:12: POC Glucose 183 H 07/19/21 05:59: POC Glucose 164 H 07/19/21 10:15: POC Glucose 116 H 07/19/21 11:21: POC Glucose 110 07/19/21 12:32: POC Glucose 128 H 07/19/21 14:49: POC Glucose 170 H 07/19/21 16:15: POC Glucose 194 H 07/19/21 22:29: POC Glucose 261 H 07/20/21 02:22: POC Glucose 247 H 07/20/21 05:13: POC Glucose 215 H 07/20/21 05:35: WBC 25.0 H*, Corrected WBC 23.6 H*, RBC 2.47 L, Hgb 7.2 L, Hct 22.8 L, MCV 92.5, MCH 29.2, MCHC 31.5 L, RDW 17.1, Plt Count 511 H, MPV 9.4, Neut % (Auto) 86.8 H, Lymph % (Auto) 7.2 L, [place] % (Auto) 4.4, Eos % (Auto) 0.3, Baso % (Auto) 1.3, Neut # (Auto) 21.7 H, Lymph # (Auto) 1.8, [place] # (Auto) 1.1 H, Eos # (Auto) 0.1, Baso # (Auto) 0.3 H, Total Counted 100, Neutrophils % (Manual) 89 H, Lymphocytes % (Manual) 8 L, Monocytes % (Manual) 1 L, Eosinophils % (Manual) 1, Basophils % (Manual) 1.0, Nucleated RBCs 6, Platelet Estimate Normal, Hypochromasia 2+, Anisocytosis 1+, Macrocytosis 1+, Tear Drop Cells 1+ 07/20/21 05:35: Sodium 132 L, Potassium 6.5 H*, Chloride 102, Carbon Dioxide 13 L, Anion Gap 23.5 H, BUN 82 H, Creatinine 4.10 H D, Estimated Creat Clear 10, Estimated GFR 11 L*, Est GFR ( Amer) 13 L* D, Glucose 181 H, Calcium 6.7 L, Total Bilirubin 1.1, AST 172 H, ALT 64 D, Alkaline Phosphatase 160 H, Total Protein 5.7 L, Albumin 2.6 L, Globulin 3.1, Albumin/Globulin Ratio 0.8 L Vital Signs - 24 hr 07/19/21 09:00 07/19/21 09:40 07/19/21 10:00 Temperature 99.9 F H 99.9 F H Pulse Rate Pulse Rate [Apical] 84 84 Respiratory Rate 26 H 28 H 26 H Blood Pressure [Left Arm] 122/57 L 118/50 L 02 Sat by Pulse Oximetry 94 L 96 92 L 07/19/21 11:00 07/19/21 12:00 07/19/21 13:00 Temperature 99.9 F H 99.9 F H 100.2 F H Pulse Rate 77 Pulse Rate [Apical] 86 76 77 Respiratory Rate 26 H 26 H 26 H Blood Pressure [Left Arm] 114/54 L 126/57 L 126/57 L 02 Sat by Pulse Oximetry 94 L 92 L 90 L 07/19/21 14:00 07/19/21 15:00 07/19/21 16:00 Temperature 100.4 F H 100.6 F H 100.6 F H Pulse Rate 87 Pulse Rate [Apical] 81 87 88 Respiratory Rate 26 H 26 H 26 H Blood Pressure [Left Arm] 131/58 L 117/52 L 117/52 L 02 Sat by Pulse Oximetry 94 L 91 L 93 L 07/19/21 17:00 07/19/21 18:00 07/19/21 18:20 Temperature 100.6 F H 100.4 F H Pulse Rate 92 H Pulse Rate [Apical] 89 102 H Respiratory Rate 26 H 26 H Blood Pressure [Left Arm] 118/51 L 120/53 L 02 Sat by Pulse Oximetry 93 L 94 L 07/19/21 18:21 07/19/21 18:22 07/19/21 19:00 Temperature 100.2 F H Pulse Rate 92 H Pulse Rate [Apical] 98 H Respiratory Rate 26 H 26 H Blood Pressure [Left Arm] 117/54 L 02 Sat by Pulse Oximetry 92 L 97 07/19/21 20:00 07/19/21 21:00 07/19/21 21:55 Temperature 99.8 F H Pulse Rate Pulse Rate [Apical] 93 H 100 H Respiratory Rate 26 H 26 H 26 H Blood Pressure [Left Arm] 95/46 L 116/48 L 02 Sat by Pulse Oximetry 94 L 97 90 L 07/19/21 21:58 07/19/21 22:00 07/19/21 23:00 Temperature 100.1 F H 100.1 F H Pulse Rate 98 H Pulse Rate [Apical] 99 H 95 H Respiratory Rate 26 H 26 H Blood Pressure [Left Arm] 108/51 L 109/47 L 02 Sat by Pulse Oximetry 95 97 07/20/21 00:00 07/20/21 01:00 07/20/21 02:00 Temperature 100 F H 100.3 F H Pulse Rate Pulse Rate [Apical] 94 H 84 84 Respiratory Rate 26 H 26 H 26 H Blood Pressure [Left Arm] 105/46 L 101/43 L 104/55 L 02 Sat by Pulse Oximetry 98 97 97
--- NOTE | 2021-07-20 11:30 | PC.NURSE ---
Patient was terminally extubated. time out was performed and verified.
--- NOTE | 2021-07-20 11:30 | PC.NURSE ---
RESPIRATORY CARE: PT TERMINALLY EXTUBATED @ 1138
--- NOTE | 2021-07-20 11:35 | PC.NURSE ---
Patient and was pronounced by Hebert Erwin MD at 11:35am. Patient will be released to [facility]
--- NOTE | 2021-07-20 11:47 | HMH.PULMPN ---
Internal Medicine - PN: Subj *Date: 07/20/21 *Time: 11:47 Interval history: No acute respiratory events overnight. Exam - Constitutional Constitutional:: Present: comfortable - HENMT Exam HENMT: Present: normocephalic, atraumatic - Eye Exam Eyes:: Present: normal appearance both eyes and related structures - Neck Exam Neck:: Present: normal visual inspection - Respiratory Exam Respiratory:: Present: respiratory distress, crackles, rales - Cardiovascular Exam Cardiac:: Present: S1, S2 - GI Exam GI:: Present: soft - Neurological Exam Neurological: Absent: alert, awake, normal cognition - Extremities Exam Extremities: Present: no cyanosis, no clubbing, edema Assessment and Plan (1) Pneumonia due to COVID-19 virus Status: Acute Category: Medical Code(s): U07.1 - COVID-19; J12.82 - Pneumonia due to coronavirus disease 2019 (2) BEKAH (acute kidney injury) Status: Acute Category: Medical Code(s): N17.9 - Acute kidney failure, unspecified (3) CAD (coronary artery disease) Status: Chronic Qualifiers: Coronary Disease-Associated Artery/Lesion type: [place] artery [place] vs. transplanted heart: [place] heart Associated angina: without angina Qualified Code(s): I25.10 - Atherosclerotic heart disease of [place] coronary artery without angina pectoris Category: Medical Code(s): I25.10 - Atherosclerotic heart disease of [place] coronary artery without angina pectoris (4) Diastolic dysfunction Status: Chronic Category: Medical Code(s): I51.89 - Other ill-defined heart diseases (5) HLD (hyperlipidemia) Status: Chronic Qualifiers: Hyperlipidemia type: mixed hyperlipidemia Qualified Code(s): E78.2 - Mixed hyperlipidemia Category: Medical Code(s): E78.5 - Hyperlipidemia, unspecified (6) HTN (hypertension) Status: Chronic Qualifiers: Hypertension type: essential hypertension Category: Medical Code(s): I10 - Essential (primary) hypertension (7) Pulmonary hypertension Status: Chronic Category: Medical Code(s): I27.20 - Pulmonary hypertension, unspecified (8) Anemia Status: Acute Category: Medical Code(s): D64.9 - Anemia, unspecified (9) Morbid obesity with BMI of 40.0-44.9, adult Status: Acute Category: Medical Code(s): E66.01 - Morbid (severe) obesity due to excess calories; Z68.41 - Body mass index [BMI] 40.0-44.9, adult (10) Anxiety Status: Acute Category: Medical Code(s): F41.9 - Anxiety disorder, unspecified (11) Hyperkalemia Status: Acute Category: Medical Code(s): E87.5 - Hyperkalemia (12) Hyperglycemia Status: Acute Category: Medical Code(s): R73.9 - Hyperglycemia, unspecified (13) Fever Status: Acute Category: Medical Code(s): R50.9 - Fever, unspecified - Assessment and plan all Dx Assessment and Plan for all problems:: #COVID-19 pneumonia: #Acute hypoxic respiratory failure: 70-year-old previous smoker asthma COPD overlap syndrome using Symbicort and as needed basis no significant respiratory symptom burden presented to the hospital with worsening respiratory distress and found to be COVID-19 positive and needing oxygen supplementation to maintain her O2 saturation greater level. CRP elevated at 17.3, ESR of 52. Mild increase in creatinine at 1.8. D-dimer elevated 0.75. Lower extremity Doppler negative for DVT. CTA negative for pulmonary embolism. Patient on presentation needing 2 L nasal oxygen supplementation however her respiratory status rapidly declined over the clinical course in the next 2 to 3 days eventually needing noninvasive ventilator support to maintain her saturations. Patient has been a DNR/DNI until 07/13 but she has been refusing intubation despite worsening respiratory status but however on 07/13/2021 patient expressed her wishes to be intubated however wishes to remain DNR. Patient received anxiety for agitation after she expressed her wishes to be intubated. This informati
--- NOTE | 2021-07-20 13:12 | HMH.DEATH ---
Pronouncement Note - Date and Time of Date of : 07/20/21 Time of : 11:45 - PCOD Preliminary cause of : Acute respiratory failure - Additional Data Confirmation of : no pulse Family: at bedside Attending physician: Eitan Mak MD Was code activated?: No Autopsy requested?: No trial examiner notified?: Yes Organ bank notified?: Yes Advance directives: Yes (DNR)
--- NOTE | 2021-07-21 21:58 | HMH.DCSUM ---
General - General Admission date:: 07/10/21 <AubreeEitan - 07/28/21 08:58> 07/10/21 <Pamella Lake - 07/21/21 22:21> Discharge date: 07/20/21 <AleksandraPamella - 07/21/21 22:21> HPI HPI: Ms. Solares is a 70-year-old female with a history of hypertension, CAD, hyperlipidemia, COPD followed by pulmonology, and anemia who began feeling poorly approximately 4 days ago. She states she had had progressive shortness of breath, dizziness, loss of taste, poor appetite, and a productive cough. Her shortness of air worsened yesterday and she therefore called 911 to transport her to the emergency room. She has had diarrhea for the past few days but no nausea or vomiting. She has not had a Covid vaccine. She denies any known Covid exposure. She was seen and evaluated in the emergency room and tested positive for Covid. She did appear dehydrated as her renal function was elevated. Her BNP was only elevated at 256. She had a chest x-ray showing mild perihilar basilar infiltrates. She was admitted for further evaluation and treatment. <Pamella Lake - 07/21/21 22:21> Hospital Course Hospital Course: The patient's chest x-ray showed mild perihilar basilar infiltrates. She was started on Covid protocol and pulmonology was consulted as she was a patient of pulmonology. Her venous Doppler was negative. The patient began having more shortness of breath and required increased supplemental oxygen. She was titrated up to 3 L and then up to a Ventimask at 50%. CT of the chest was ordered. While in CT, the patient had more respiratory distress and a rapid response was called. Dr. Mayen responded and the patient refused intubation. She was placed on BiPAP and brought back to her room. It was felt she had pulmonary edema and fluid overload. Her IV fluids were stopped and she was given Lasix. She had a chest x-ray showing patchy diffuse interstitial and alveolar airspace disease in the left lung greater than the right. There was edema and or pneumonia. She remained on BiPAP and did diurese well after Lasix. She began running a fever. She was given an additional 80 mg of IV Lasix and continued to refuse intubation. Pulmonology did discuss the patient's condition with her. She had progressive hypoxia and tachypnea and he discussed her CODE STATUS. She wished to be intubated, however she preferred to remain a DNR. They therefore proceeded with intubation and mechanical ventilatory support. Her Rocephin was changed to cefepime and her Zithromax was continued. She was continued on remdesivir and dexamethasone. She had a repeat chest x-ray showing bilateral pneumonia which appeared worse in the right lower lobe but slightly better in the left upper area. She also had an echo showing an EF of 50%. She did have a CTA which showed no evidence of PE. She had to be started on a norepinephrine drip. She had a repeat ABG showing improved oxygenation. Her PEEP and FiO2 were weaned as tolerated. She was started on tube feeds. She was able to be taken off of her pressors, but her FiO2 remained at 100%. The patient began having desaturation episodes and required manually bagging to elevate her sats. She was started on insulin due to hyperglycemia. She was started on duo nebs and continued on budesonide. She had a repeat chest x-ray showing no change in the multifocal pneumonia. Her condition continued to decline. She had to be started on insulin drip due to elevated blood sugar. Her temperature remained elevated. Her pH lowered on her ABG. She had to be given a unit of blood due to anemia and was started on vancomycin empirically. She continued to be acidotic, therefore bicarb was added to her IV fluids and she was continued on her insulin drip and antibiotics. Her blood pressure dropped and her Levophed had to be resumed. It was titrated to a maximum dose. The patient then began having dark bloody discharge from her nose and mouth. It was fel
== END 2021-07-20 14:23 | disposition expired | DRG 207 ==
LOC: ER 05:25 → 2ND 07:11 → ICU 07-13 15:51
PROVIDERS: Family Medicine; Internal Medicine Pulmonary Disease; Admitting Provider Family Medicine; Emergency Provider Emergency Medicine; PCP Family Medicine; Visit Provider Family Medicine
DX: U07.1 COVID-19 (principal); J12.82 Pneumonia due to coronavirus disease 2019; J96.01 Acute respiratory failure with hypoxia; N17.9 Acute kidney failure, unspecified; Z68.41 Body mass index [BMI] 40.0-44.9, adult; I42.9 Cardiomyopathy, unspecified; E87.2 Acidosis; I27.20 Pulmonary hypertension, unspecified; Z51.5 Encounter for palliative care; E66.01 Morbid (severe) obesity due to excess calories; J44.9 Chronic obstructive pulmonary disease, unspecified; I25.10 Atherosclerotic heart disease of native coronary artery without angina pectoris; Z87.891 Personal history of nicotine dependence; E78.5 Hyperlipidemia, unspecified; I10 Essential (primary) hypertension; Z85.3 Personal history of malignant neoplasm of breast; M19.90 Unspecified osteoarthritis, unspecified site; D64.9 Anemia, unspecified; Z66 Do not resuscitate; R73.9 Hyperglycemia, unspecified; E87.5 Hyperkalemia; F41.9 Anxiety disorder, unspecified
CPT/HCPCS: 31500; 94002; 36415; 71045; 71275; 80048; 80053; 81001; 82009; 82803; 82947; 82962; 83605; 83690; 83735; 83880; 84145; 84478; 84484; 85007; 85025; 85378; 85651; 86140; 86850; 87040; 87070; 87081; 87086; 87205; 93005; 93306; 93970; 94003; 94640; 94660; 94761; 96365; 96375; 99284; C9803; J0456; J2704; J3370; P9016; Q9967; U0003; U0005